=== PATIENT | female | born 1965 | race Caucasian/White ===

== ENCOUNTER 2017-05-08 12:02 | Inpatient (IN) | payer OTHER ==
[2017-05-08 12:14] VITALS: BMI 29.2
--- NOTE | 2017-05-08 12:50 | PDOC ---
History of Present Illness - General Chief Complaint: Chest Pain Stated Complaint: PAIN/ CHEST, RT ARM Time Seen by Provider: 05/08/17 12:41 History Source: Patient - History of Present Illness Initial Comments: 05/08/17 12:49 Patient is a 52 y.o. female with a PMH of HTN, DLD, IDDM, and nephrolithiasis presents to our ED today c/o chest pain that started at 10 a.m. this morning while she was urinating on the toilet. Patient states she felt a sound "pounding" pain over her sternum that spread to the area of her R breast and down her right arm. Patient states the pain is constant, and she cannot identify any relieving factors. Patient states this is the first time she has experienced this chest pain Patient denies any associated diaphoresis, lightheadedness, shortness of breath or nausea/vomiting. Patient denies any recent travel, medication changes and states adherence to her medication regimen. Upon re-exam patient notes she spends 10-12 hours daily crocheting with her R hand. Surgical: Tubal Ligation NKDA PMD: Dr. Trujillo Social: denies nicotine, denies alcohol, denies marijuana/cocaine/heroin Past History - Past Medical History Allergies/Adverse Reactions: Allergies Allergy/AdvReac Type Severity Reaction Status Date / Time No Known Allergies Allergy Verified 05/08/17 12:11 Home Medications: Ambulatory Orders Albuterol Sulfate Inhaler - [Ventolin Hfa Inhaler -] 2 inh PO Q4H PRN 05/08/17 Atorvastatin Ca [Lipitor] 40 mg PO HS 05/08/17 Citalopram Hydrobromide [Celexa -] 10 mg PO DAILY 05/08/17 Gabapentin [Neurontin -] 300 mg PO Q8H 05/08/17 Insulin Glargine,Hum.rec.anlog [Lantus Solostar PEN (NF)] 50 units SQ HS Insulin NPH Human Isophane [Humulin N] 25 unit SQ TID 05/08/17 Diabetes: Yes HTN: Yes Hypercholesterolemia: Yes Kidney Stones: Yes - Family Disease History Family Disease History: Other: Sister (renal colic) - Suicide/Smoking/Psychosocial Hx Smoking History: Never smoked Information on smoking cessation initiated: No Hx Alcohol Use: No Drug/Substance Use Hx: No Substance Use Type: None Review of Systems - Review of Systems Constitutional: No: Chills, Fever HEENTM: No: Blurred Vision Respiratory: No: Shortness of Breath Cardiac (ROS): Yes: Chest Pain. No: Lightheadedness, Palpitations, Chest Tightness ABD/GI: No: Constipated, Diarrhea, Nausea, Vomiting : No: Burning, Dysuria All Other Systems: Reviewed and Negative *Physical Exam - Vital Signs Last Vital Signs Temp Pulse Resp BP Pulse Ox 97.8 F 83 18 151/88 100 05/08/17 12:12 05/08/17 12:12 05/08/17 12:12 05/08/17 12:12 05/08/17 12:12 - Physical Exam General Appearance: Yes: Nourished, Appropriately Dressed HEENT: positive: JARET Neck: positive: Trachea midline, Supple Respiratory/Chest: positive: Normal Breath Sounds Cardiovascular: positive: Regular Rhythm, Regular Rate, S1, S2 Gastrointestinal/Abdominal: positive: Soft Extremity: positive: Normal Range of Motion, Tender (RUE has full ROM, however signficant TTP from shoulder to wrist; neurovascularly intact; motor strength 5/ 5) Integumentary: positive: Normal Color, Dry, Warm Neurologic: positive: Fully Oriented, Alert ED Treatment Course - LABORATORY CBC & Chemistry Diagram: 05/08/17 13:11 05/08/17 13:11 Medical Decision Making - Medical Decision Making 05/08/17 13:48 Patient is a 52 y.o. female who presents c/o acute onset of chest pain. Initial DDX is ACS vs. Muscle Strain vs. GERD (less likely). PLAN: 1. EKG 2. Troponin, CBC/CMP 3. CXR 4. Fingerstick Glucose EKG shows HR 79 with NSR, no appreciable ST elevations/depression, no LAD/RAD normal DC, QT intervals and some T wave flattening in Leads I, aVL, III, aVF, V5 , V6 making patient's (Heart Score = 4). Patient BS 252; Patient did not take her afternoon insulin (as she was in the hospital) - 25 Humalog administered with repeat BS fingerstick ordered. 05/08/17 17:21 Patient accepted for observation admission and possible cardiac evaluation. *DC/Admit/Observation/Transfer Diagnosis at time of Disposition: Chest pain - Discharge Dispostion Disposition: HOME Condition at time of disposition: Good Admit: Yes
[2017-05-08 13:39] LABS: BASOPHIL 1.2 % (0-2.0); EOSINOPHIL 4.1 % (0-4.5); MCHC 33.2 g/dl (32.0-36.0); MEAN CELL VOLUME 84.4 fl (80-96); MEAN PLT VOLUME 8.2 fl (7.5-11.1); NEUTROPHILS 56.1 % (42.8-82.8); PLATELET COUNT 229 K/MM3 (134-434); RDW 13.9 % (11.6-15.6); WHITE BLOOD COUNT 7.5 K/mm3 (4.0-10.0)
[2017-05-08] MEDS ORDERED: ASPIRIN 81 MG CHEWABLE TABLETS PO ONE (13:40)
[2017-05-08] MEDS ORDERED: INSULIN (NOVOLOG) ASPART 100 UNITS/ML 10ML VIAL SQ ONE (13:53)
[2017-05-08] MEDS ORDERED: INSULIN NPH 100 UNITS/ML *VIAL ONE (13:55)
[2017-05-08] MEDS ORDERED: ASPIRIN 81 MG CHEWABLE TABLETS ONE (13:55)
[2017-05-08] MEDS ORDERED: morphine CARPU-JECT 2 MG/1 ML DISP.SYRIN IVPUSH ONE (14:06)
[2017-05-08] MEDS ORDERED: morphine CARPU-JECT 2 MG/1 ML DISP.SYRIN ONE (14:09)
[2017-05-08 14:14] LABS: ALBUMIN 3.7 g/dl (3.4-5.0); ANION GAP 13 (8-16); BILIRUBIN,TOTAL 0.3 mg/dL (0.2-1.0); CALCIUM 9.1 mg/dL (8.5-10.1); CO2 27 mmol/L (21-32); GLUCOSE,RANDOM 251 mg/dL (74-106); SGOT/AST 19 U/L (15-37); SGPT/ALT 28 U/L (12-78); TOT PROT 7.3 g/dl (6.4-8.2)
[2017-05-08 14:15] LABS: ALK PHOS 94 U/L (45-117); CPK 72 IU/L (26-192); TROPONIN I < 0.02 ng/ml (0.00-0.05)
--- NOTE | 2017-05-08 15:52 | PDOC ---
Attending Attestation - Resident Resident Name: Amanda Lovell - ED Attending Attestation I have performed the following: I have examined & evaluated the patient, The case was reviewed & discussed with the resident, I agree w/resident's findings & plan, Exceptions are as noted - HPI HPI: 05/08/17 15:40 52yo p/w HTN, HL, IDDM p/w sternal CP pounding, radiating to R shoulder and R arm while urinating this morning. Pain was constant and is still present. Denies associated diaphoresis, N/V/D, headache. Denies pleuritic quality to pain. Denies recent immobility or exogenous hormones. Denies recent trauma Denies recent abd pain, weakness or numbness - Physicial Exam PE: 05/08/17 17:36 GENERAL: Awake, alert, and fully oriented, in no acute distress HEAD: No signs of trauma EYES: PERRLA, EOMI, sclera anicteric, conjunctiva clear ENT: Auricles normal inspection, hearing grossly normal, nares patent, oropharynx clear without exudates. Moist mucosa NECK: Normal ROM, supple, no lymphadenopathy, JVD, or masses LUNGS: Breath sounds equal, clear to auscultation bilaterally. No wheezes, and no crackles HEART: Regular rate and rhythm, normal S1 and S2, no murmurs, rubs or gallops ABDOMEN: Soft, nontender, normoactive bowel sounds. No guarding, no rebound. No masses EXTREMITIES: Normal range of motion, no edema. No clubbing or cyanosis. No cords, erythema, or tenderness NEUROLOGICAL: Normal speech, cranial nerves intact, negative pronator drift, 5/ 5 strength in all 4 extremities, normal sensation to light touch in all 4 extremities, normal cerebellar exam, normal gait, normal reflexes and tone SKIN: Warm, Dry, normal turgor, no rashes or lesions noted. - Medical Decision Making 05/08/17 17:42 52-year-old female with a history of hypertension, hyperlipidemia, diabetes who presents with sudden onset pounding sternal chest pain radiating to the right shoulder and down her right arm. Pain is present in the emergency department. Vitals are unremarkable and exam is unremarkable. EKG with diffuse T-wave flattening in multiple leads. Differential includes but is not limited to ACS versus unstable angina versus angina versus musculoskeletal pain. Patient's heart score is 5 and thus will admit to obs. -labs -CXR -ASA -admit obs Heart Score/ECG Review - History History: Moderately suspicious - Electrocardiogram EKG: Non specific repolarization disturbance - Age Age: 45-65 - Risk Factors Risk Factors Heart Score: Yes Hx Hypercholesterolemia, Yes Hx Hypertension, Yes Hx Diabetes Based on the list above the patient has:: >/=3 risk factors or Hx atherosclerotic disease - Troponin Troponin: </= normal limit - Score Heart Score - Total: 5 #1 05/08/17 17:39 Twelve-lead EKG was performed and reviewed by me. Normal sinus rhythm, rate 79. Normal axis and intervals. No ST elevations. T wave flattening in leads 1, aVL, 3, aVF, V5 through V6.
[2017-05-08] MEDS ORDERED: ACETAMINOPHEN 1000 MG/100 ML VIAL (NON FORMULARY) IVPB ONE (22:18)
[2017-05-08] MEDS ORDERED: ACETAMINOPHEN INJECTION 100 ML IVPB ONE (22:23)
[2017-05-09] MEDS ORDERED: ACETAMINOPHEN 325 MG TABLET (FP) PO ONE (09:58)
[2017-05-09] MEDS ORDERED: ACETAMINOPHEN 325 MG TABLET (FP) ONE ×2 (10:00→19:26)
[2017-05-09 10:29] LABS: BASOPHIL 0.7 % (0-2.0); EOSINOPHIL 3.5 % (0-4.5); MCH 27.9 pg (25.7-33.7); MCHC 33.3 g/dl (32.0-36.0); MEAN CELL VOLUME 83.8 fl (80-96); MEAN PLT VOLUME 7.7 fl (7.5-11.1); NEUTROPHILS 65.3 % (42.8-82.8); PLATELET COUNT 240 K/MM3 (134-434); RDW 13.5 % (11.6-15.6); WHITE BLOOD COUNT 7.7 K/mm3 (4.0-10.0)
[2017-05-09 10:58] LABS: ALBUMIN 3.6 g/dl (3.4-5.0); ANION GAP 9 (8-16); BILIRUBIN,TOTAL 0.4 mg/dL (0.2-1.0); CALCIUM 9.5 mg/dL (8.5-10.1); CO2 28 mmol/L (21-32); SGOT/AST 26 U/L (15-37); SGPT/ALT 33 U/L (12-78); TOT PROT 7.3 g/dl (6.4-8.2)
[2017-05-09 11:00] LABS: ALK PHOS 94 U/L (45-117); TROPONIN I < 0.02 ng/ml (0.00-0.05)
[2017-05-09 11:04] LABS: GLUCOSE,RANDOM 317 mg/dL (74-106)
--- NOTE | 2017-05-09 11:37 | CON.CARD ---
Consult Consult Specialty:: cardiology Referred by:: Leonel Reason for Consultation:: Chest pain - History of Present Illness Chief Complaint: Chest pain History of Present Illness: The patient is a 53-year-old female, we have a history of diabetes, hypertension , hyperlipidemia, now presenting with chest pains. The patient stated that she was at home sitting in the chair when she suddenly began experiencing retrosternal chest pressure and tightness. The patient had several such episodes throughout the day. Each episode lasting approximately 5 minutes. The patient admits to a sedentary lifestyle. She walks minimal distances. Denied exertional symptoms. Symptoms are partially reproducible to touch. Currently she has very mild symptoms. She denied any other associated symptoms. The ECG showed normal sinus rhythm, with normal axes and intervals, nonspecific ST-T changes. - History Source History Provided By: Patient Limitations to Obtaining History: No Limitations - Past Medical History Cardio/Vascular: Yes: HTN, Hyperlipdemia - Alcohol/Substance Use Hx Alcohol Use: No - Smoking History Smoking history: Never smoked Home Medications - Allergies Allergies/Adverse Reactions: Allergies Allergy/AdvReac Type Severity Reaction Status Date / Time No Known Allergies Allergy Verified 05/08/17 12:11 - Home Medications Home Medications: Ambulatory Orders Albuterol Sulfate Inhaler - [Ventolin Hfa Inhaler -] 2 inh PO Q4H PRN 05/08/17 Atorvastatin Ca [Lipitor] 40 mg PO HS 05/08/17 Citalopram Hydrobromide [Celexa -] 10 mg PO DAILY 05/08/17 Gabapentin [Neurontin -] 300 mg PO Q8H 05/08/17 Insulin Glargine,Hum.rec.anlog [Lantus Solostar PEN (NF)] 50 units SQ HS Insulin NPH Human Isophane [Humulin N] 25 unit SQ TID 05/08/17 Review of Systems - Review of Systems Constitutional: reports: No Symptoms Eyes: reports: No Symptoms HENT: reports: No Symptoms Neck: reports: No Symptoms Cardiovascular: reports: Chest Pain Respiratory: reports: No Symptoms Gastrointestinal: reports: No Symptoms Genitourinary: reports: No Symptoms Breasts: reports: No Symptoms Reported Musculoskeletal: reports: No Symptoms Integumentary: reports: No Symptoms Neurological: reports: No Symptoms Endocrine: reports: No Symptoms Hematology/Lymphatic: reports: No Symptoms Psychiatric: reports: No Symptoms Vital Signs: Vital Signs Temperature 98.3 F 05/09/17 07:48 Pulse Rate 81 05/09/17 07:48 Respiratory Rate 16 05/09/17 07:48 Blood Pressure 141/89 05/09/17 07:48 O2 Sat by Pulse Oximetry (%) 100 05/09/17 07:48 Constitutional: Yes: Well Nourished, Calm Eyes: Yes: WNL HENT: Yes: WNL Neck: Yes: WNL, Supple, Trachea Midline Respiratory: Yes: WNL, Regular, CTA Bilaterally Gastrointestinal: Yes: WNL, Normal Bowel Sounds, Soft Cardiovascular: Yes: WNL, Regular Rate and Rhythm JVD: No Carotid Bruit: No PMI: Non-Displaced Heart Sounds: Yes: S1, S2 Musculoskeletal: Yes: WNL Extremities: Yes: WNL Edema: No Peripheral Pulses WNL: Yes Integumentary: Yes: WNL Neurological: Yes: WNL ...Motor Strength: WNL Psychiatric: Yes: WNL - Other Data Labs, Other Data: CBC, BMP 05/09/17 10:11 05/09/17 10:11 Troponin, BNP 05/08/17 05/09/17 18:40 10:11 Troponin I < 0.02 < 0.02 Troponin, BNP 05/08/17 05/09/17 18:40 10:11 Troponin I < 0.02 < 0.02 Assessment/Plan 53-year-old female with multiple risk factors for coronary artery disease, now presenting with chest pains at rest. The patient has been experiencing intermittent chest pains for the past 24 hours. There is no evidence of ischemia nor acute coronary syndrome. No acute ECG changes. No CHF. Chest pain is atypical. Continue aspirin as currently. Start Toprol-XL 25 mg daily. Give Protonix 40 mg daily. Continue the other medications as currently. Please arrange for a pharmacological nuclear stress test and an echocardiogram. Admitted to telemetry. The patient is stable. We will follow results.
--- NOTE | 2017-05-09 12:49 | EKG ---
Test Reason : Blood Pressure : / mmHG Vent. Rate : 079 BPM Atrial Rate : 079 BPM P-R Int : 142 ms QRS Dur : 072 ms QT Int : 366 ms P-R-T Axes : 053 016 090 degrees QTc Int : 419 ms POOR DATA QUALITY, INTERPRETATION MAY BE ADVERSELY AFFECTED NORMAL SINUS RHYTHM NONSPECIFIC T WAVE ABNORMALITY ABNORMAL ECG WHEN COMPARED WITH ECG OF 31-MAY-2009 17:10, NONSPECIFIC T WAVE ABNORMALITY NOW EVIDENT IN LATERAL LEADS Confirmed by ROGER ZARCO MD ([id number]) on 05/09/2017 12:48:41 PM Referred By: Confirmed By:ROGER ZARCO MD
[2017-05-09] MEDS ORDERED: INSULIN NPH HUMAN ISOPHANE SQ SCH (14:00)
[2017-05-09] MEDS ORDERED: METOPROLOL SUCCINATE 50 MG TAB.SR.24H (FP) ONE (14:10)
[2017-05-09] MEDS ORDERED: PANTOPRAZOLE 40 MG TABLET (FP) ONE (14:10)
[2017-05-09] MEDS ORDERED: ASPIRIN 81 MG CHEWABLE TABLETS ONE (14:10)
[2017-05-09] MEDS ORDERED: CITALOPRAM HYDROBROMIDE 10 MG TABLET (FP) ONE (14:11)
[2017-05-09] MEDS ORDERED: GABAPENTIN 100 MG CAPSULE (FP) ONE ×2 (14:11→23:17)
[2017-05-09] MEDS: GABAPENTIN 300 MG CAPSULE (FP) PO SCH ×3 (14:20→23:08)
[2017-05-09] MEDS: PANTOPRAZOLE 40 MG TABLET (FP) PO SCH (14:20)
[2017-05-09] MEDS: CITALOPRAM HYDROBROMIDE 10 MG TABLET (FP) PO SCH (14:20)
[2017-05-09] MEDS: ASPIRIN 81 MG CHEWABLE TABLETS PO SCH (14:20)
[2017-05-09] MEDS: METOPROLOL SUCCINATE 25 MG TAB.SR.24H (FP) PO SCH (14:20)
--- NOTE | 2017-05-09 16:21 | HP ---
Admitting History and Physical - Primary Care Physician PCP: Minnie Castaneda - Admission Chief Complaint: chest pain History of Present Illness: Patient is a 52 year old female with a PMH of HTN, DLD, IDDM, and nephrolithiasis presents to our ED today c/o chest pain that started at 9 a.m. this morning while she was urinating on the toilet. Patient states she felt a sound "pounding" pain over her sternum radiating to the area of her R breast and down her right arm. Patient states the pain is constant, and she cannot identify any relieving factors. Patient states this is the first time she has experienced this chest pain Patient denies any associated diaphoresis, lightheadedness, shortness of breath or nausea/vomiting. Denies recent abd pain , weakness or numbness In the ED, patient denies CP, no SOB, no palpitation, not in distress. History Source: Patient Limitations to Obtaining History: Clinical Condition - Past Medical History Cardiovascular: Yes: HTN, Hyperlipdemia Endocrine: Yes: Diabetes Mellitus - Past Surgical History Additional Past Surgical History: -S/P tubal ligation (25 years ago) -S/P B/L Lithotripsy secondary to Nephrolithiasis (December 2016) - Smoking History Smoking history: Never smoked - Alcohol/Substance Use Hx Alcohol Use: No - Social History History of Recent Travel: No Home Medications - Allergies Allergies/Adverse Reactions: Allergies Allergy/AdvReac Type Severity Reaction Status Date / Time No Known Allergies Allergy Verified 05/08/17 12:11 - Home Medications Home Medications: Ambulatory Orders Albuterol Sulfate Inhaler - [Ventolin Hfa Inhaler -] 2 inh PO Q4H PRN 05/08/17 Atorvastatin Ca [Lipitor] 40 mg PO HS 05/08/17 Citalopram Hydrobromide [Celexa -] 10 mg PO DAILY 05/08/17 Gabapentin [Neurontin -] 300 mg PO Q8H 05/08/17 Insulin Glargine,Hum.rec.anlog [Lantus Solostar PEN (NF)] 50 units SQ HS Insulin NPH Human Isophane [Humulin N] 25 unit SQ TID 05/08/17 Family Disease History - Family Disease History Family History: Denies Review of Systems - Review of Systems Constitutional: denies: Chills, Fever Eyes: denies: Blurred Vision, Double Vision HENT: denies: Difficult Swallowing, Ear Pain Neck: denies: Decreased ROM Cardiovascular: reports: Chest Pain. denies: Palpitations, Shortness of Breath Respiratory: denies: Cough, SOB Gastrointestinal: denies: Abdominal Pain Musculoskeletal: denies: Back Pain Integumentary: denies: Bruising, Lesions Neurological: denies: Change in LOC, Dizziness, Numbness, Parasthesia, Syncope Hematology/Lymphatic: denies: Excessive Bleeding Psychiatric: reports: Depression. denies: Anxiety Physical Examination Vital Signs: Vital Signs Temperature 98.1 F 05/09/17 13:17 Pulse Rate 74 05/09/17 13:17 Respiratory Rate 20 05/09/17 13:17 Blood Pressure 140/81 05/09/17 13:17 O2 Sat by Pulse Oximetry (%) 100 05/09/17 13:17 Constitutional: Yes: No Distress, Calm Eyes: Yes: Conjunctiva Clear, EOM Intact HENT: Yes: Atraumatic, Normocephalic Neck: Yes: Supple, Trachea Midline Cardiovascular: Yes: Regular Rate and Rhythm, S1, S2 Respiratory: Yes: Regular, CTA Bilaterally Gastrointestinal: Yes: Normal Bowel Sounds, Soft Edema: No Peripheral Pulses WNL: Yes Neurological: Yes: Alert, Oriented ...Motor Strength: WNL Problem List - Problems (1) Chest pain Assessment/Plan: -cardiology consult appreciated -F/U nuclear stress test and echo Code(s): R07.9 - CHEST PAIN, UNSPECIFIED (2) Diabetes 1.5, managed as type 1 Assessment/Plan: -BGM AC/HS -Insulin Sliding Scale -Endocrinology consult Code(s): E13.9 - OTHER SPECIFIED DIABETES MELLITUS WITHOUT COMPLICATIONS (3) HTN (hypertension) Assessment/Plan: -On Toprol -BP monitoring Code(s): I10 - ESSENTIAL (PRIMARY) HYPERTENSION (4) HLD (hyperlipidemia) Assessment/Plan: -On Atorvastatin Code(s): E78.5 - HYPERLIPIDEMIA, UNSPECIFIED (5) CAD (coronary artery disease) Assessment/Plan: -Cardiology on board -On Aspirin -Monitor for CP Code(s): I25.10 - ATHSCL HEART DISEASE OF [place] CORONARY ARTERY W/O ANG PCTRS (6) Depression Assessment/Plan: -On Celexa Code(s): F32.9 - MAJOR DEPRESSIVE DISORDER, SINGLE EPISODE, UNSPECIFIED Assessment/Plan -GI prophylaxis -SCDs -See problem list
[2017-05-09] MEDS: INSULIN SLIDING SCALE (NOVOLOG) 1 VIAL SQ SCH ×2 (16:58→22:53)
[2017-05-09] MEDS ORDERED: INSULIN REGULAR HUMAN 100 UNITS/ML *VIAL ONE (16:59)
[2017-05-09 17:48] LABS: URINE APPEARANCE CLEAR; URINE BILIRUBIN NEGATIVE (NEGATIVE); URINE BLOOD NEGATIVE (NEGATIVE); URINE COLOR LTYELLOW; URINE GLUCOSE (UA) 3+ (NEGATIVE); URINE KETONE NEGATIVE (NEGATIVE); URINE NITRITE NEGATIVE (NEGATIVE); URINE PROTEIN NEGATIVE (NEGATIVE); URINE UROBILINOGEN NEGATIVE mg/dL (0.2-1.0)
[2017-05-09] MEDS: ACETAMINOPHEN 325 MG TABLET (FP) PO PRN (19:32)
[2017-05-09 20:33] LABS: URINE LEUK ESTERASE Negative (NEGATIVE)
[2017-05-09] MEDS: ATORVASTATIN CA 40 MG TABLET (FP) PO SCH (22:55)
[2017-05-09] MEDS: INSULIN DETEMIR 100 UNITS/ML MDV SQ SCH (22:55)
[2017-05-09] MEDS ORDERED: ATORVASTATIN CA 40 MG TABLET (FP) ONE (23:17)
[2017-05-10] MEDS: GABAPENTIN 300 MG CAPSULE (FP) PO SCH ×3 (06:16→22:51)
[2017-05-10 06:52] LABS: BASOPHIL 0.9 % (0-2.0); EOSINOPHIL 4.4 % (0-4.5); MCH 28.2 pg (25.7-33.7); MCHC 33.4 g/dl (32.0-36.0); MEAN CELL VOLUME 84.2 fl (80-96); MEAN PLT VOLUME 7.8 fl (7.5-11.1); NEUTROPHILS 53.2 % (42.8-82.8); PLATELET COUNT 242 K/MM3 (134-434); RDW 13.8 % (11.6-15.6); WHITE BLOOD COUNT 7.9 K/mm3 (4.0-10.0)
[2017-05-10 07:12] LABS: INR 0.95 (0.82-1.09); PROTHROMBIN TIME (PATIENT) 10.7 SEC (9.98-11.88)
[2017-05-10 07:18] LABS: ALBUMIN 3.5 g/dl (3.4-5.0); ANION GAP 8 (8-16); BILIRUBIN,TOTAL 0.3 mg/dL (0.2-1.0); CALCIUM 9.4 mg/dL (8.5-10.1); CO2 30 mmol/L (21-32); CREATININE 1.1 mg/dL (0.55-1.02); GLUCOSE,RANDOM 188 mg/dL (74-106); MAGNESIUM 2.2 mg/dL (1.8-2.4); PHOSPHOROUS 4.7 mg/dL (2.5-4.9); SGOT/AST 14 U/L (15-37); SGPT/ALT 29 U/L (12-78); TOT PROT 7.2 g/dl (6.4-8.2)
[2017-05-10 07:21] LABS: ALK PHOS 83 U/L (45-117)
[2017-05-10] MEDS ORDERED: ACETAMINOPHEN 325 MG TABLET (FP) ONE (10:50)
[2017-05-10] MEDS: ACETAMINOPHEN 325 MG TABLET (FP) PO PRN (10:56)
[2017-05-10] MEDS: METOPROLOL SUCCINATE 25 MG TAB.SR.24H (FP) PO SCH (10:58)
[2017-05-10] MEDS: ASPIRIN 81 MG CHEWABLE TABLETS PO SCH (10:58)
[2017-05-10] MEDS: PANTOPRAZOLE 40 MG TABLET (FP) PO SCH (10:58)
[2017-05-10] MEDS: CITALOPRAM HYDROBROMIDE 10 MG TABLET (FP) PO SCH (10:58)
[2017-05-10] MEDS ORDERED: PNEUMOC 13-VAL CONJ-DIP CRM/PF 0.5 ML DISP.SYRIN IM ONE (11:56)
[2017-05-10] MEDS: INSULIN SLIDING SCALE (NOVOLOG) 1 VIAL SQ SCH ×3 (12:15→22:31)
--- NOTE | 2017-05-10 15:00 | PN ---
Progress Note, Physician Chief Complaint: chest pain History of Present Illness: Patient is lying in a stretcher, complains of intermittent chest discomfort, no SOB, palpitation, afebrile, not in distress. - Current Medication List Current Medications: Active Medications Acetaminophen (Tylenol -) 650 mg PO Q6H PRN PRN Reason: FEVER OR PAIN Last Admin: 05/10/17 10:56 Dose: 650 mg Aspirin (Asa -) 81 mg PO DAILY [facility] Last Admin: 05/10/17 10:58 Dose: 81 mg Atorvastatin Calcium (Lipitor -) 40 mg PO HS [facility] Last Admin: 05/09/17 22:55 Dose: 40 mg Citalopram Hydrobromide (Celexa -) 10 mg PO DAILY [facility] Last Admin: 05/10/17 10:58 Dose: 10 mg Gabapentin (Neurontin -) 300 mg PO TID [facility] Last Admin: 05/10/17 06:16 Dose: 300 mg Insulin Aspart (Novolog Vial Sliding Scale -) 1 vial SQ [facility] PRN Reason: Protocol Last Admin: 05/10/17 12:15 Dose: 2 units Insulin Detemir (Levemir Vial) 50 units SQ [facility] Last Admin: 05/09/17 22:55 Dose: 50 units Metoprolol Succinate (Toprol Xl -) 25 mg PO DAILY [facility] Last Admin: 05/10/17 10:58 Dose: 25 mg Non-Formulary Medication (Insulin Nph Human Isophane [Humulin N]) 25 unit SQ TID [facility] Pantoprazole Sodium (Protonix -) 40 mg PO DAILY [facility] Last Admin: 05/10/17 10:58 Dose: 40 mg Pneumococcal 13-Valent Conj Vacc (Prevnar 13 Syringe -) 0.5 ml IM .ONCE ONE Stop: 05/10/17 11:57 - Objective Vital Signs: Vital Signs Temperature 98.1 F 05/09/17 18:57 Pulse Rate 85 05/09/17 18:57 Respiratory Rate 20 05/10/17 06:38 Blood Pressure 120/68 05/09/17 18:57 O2 Sat by Pulse Oximetry (%) 97 05/10/17 11:44 Constitutional: Yes: No Distress, Calm Eyes: Yes: EOM Intact HENT: Yes: Atraumatic, Normocephalic Neck: Yes: Supple, Trachea Midline Cardiovascular: Yes: Regular Rate and Rhythm, S1, S2 Respiratory: Yes: Regular, CTA Bilaterally Gastrointestinal: Yes: Normal Bowel Sounds, Soft Edema: No Peripheral Pulses WNL: Yes Neurological: Yes: Alert, Oriented Labs: CBC, BMP 05/10/17 06:00 05/10/17 06:00 INR, PTT INR 0.95 (0.82-1.09) 05/10/17 06:00 Problem List - Problems (1) Chest pain Assessment/Plan: -cardiology consult appreciated -F/U nuclear stress test and echo Code(s): R07.9 - CHEST PAIN, UNSPECIFIED (2) Diabetes 1.5, managed as type 1 Assessment/Plan: -BGM AC/HS -Insulin Sliding Scale -Endocrinology consult Code(s): E13.9 - OTHER SPECIFIED DIABETES MELLITUS WITHOUT COMPLICATIONS (3) HTN (hypertension) Assessment/Plan: -On Toprol -BP monitoring Code(s): I10 - ESSENTIAL (PRIMARY) HYPERTENSION (4) HLD (hyperlipidemia) Assessment/Plan: -On Atorvastatin Code(s): E78.5 - HYPERLIPIDEMIA, UNSPECIFIED (5) CAD (coronary artery disease) Assessment/Plan: -Cardiology on board -On Aspirin -Monitor for CP Code(s): I25.10 - ATHSCL HEART DISEASE OF [place] CORONARY ARTERY W/O ANG PCTRS (6) Depression Assessment/Plan: -On Celexa Code(s): F32.9 - MAJOR DEPRESSIVE DISORDER, SINGLE EPISODE, UNSPECIFIED Assessment/Plan -GI prophylaxis -SCDs -See problem list
[2017-05-10 18:47] LABS: CPK 59 IU/L (26-192); TROPONIN I < 0.02 ng/ml (0.00-0.05)
[2017-05-10] MEDS ORDERED: traMADol HCL 50 MG TABLET ONE (18:47)
[2017-05-10] MEDS: traMADol HCL 50 MG TABLET PO PRN (18:48)
[2017-05-10] MEDS: ATORVASTATIN CA 40 MG TABLET (FP) PO SCH (22:31)
[2017-05-10] MEDS: INSULIN DETEMIR 100 UNITS/ML MDV SQ SCH (22:31)
[2017-05-11] MEDS: GABAPENTIN 300 MG CAPSULE (FP) PO SCH ×2 (06:33→14:00)
[2017-05-11] MEDS ORDERED: traMADol HCL 50 MG TABLET ONE (06:34)
[2017-05-11] MEDS: traMADol HCL 50 MG TABLET PO PRN (06:36)
[2017-05-11] MEDS: INSULIN SLIDING SCALE (NOVOLOG) 1 VIAL SQ SCH ×4 (07:04→18:02)
[2017-05-11] MEDS ORDERED: PNEUMOCOCCAL 23 VACCINE 0.5 ML VIAL IM ONE (09:00)
[2017-05-11] MEDS: ASPIRIN 81 MG CHEWABLE TABLETS PO SCH (10:00)
[2017-05-11] MEDS: CITALOPRAM HYDROBROMIDE 10 MG TABLET (FP) PO SCH (10:00)
[2017-05-11] MEDS: METOPROLOL SUCCINATE 25 MG TAB.SR.24H (FP) PO SCH (10:01)
[2017-05-11] MEDS: PANTOPRAZOLE 40 MG TABLET (FP) PO SCH (10:01)
[2017-05-11] MEDS ORDERED: DIPYRIDAMOLE 50 MG/10 ML VIAL IVPB ONE (13:18)
--- NOTE | 2017-05-11 14:01 | PN ---
Progress Note, Physician Chief Complaint: no new complaints tele neg History of Present Illness: The patient is a 53-year-old female, we have a history of diabetes, hypertension , hyperlipidemia, now presenting with chest pains. Echo done results pending Stress Test being done. - Current Medication List Current Medications: Active Medications Acetaminophen (Tylenol -) 650 mg PO Q6H PRN PRN Reason: FEVER OR PAIN Last Admin: 05/10/17 10:56 Dose: 650 mg Aspirin (Asa -) 81 mg PO DAILY [facility] Last Admin: 05/11/17 10:00 Dose: 81 mg Atorvastatin Calcium (Lipitor -) 40 mg PO HS [facility] Last Admin: 05/10/17 22:31 Dose: 40 mg Citalopram Hydrobromide (Celexa -) 10 mg PO DAILY [facility] Last Admin: 05/11/17 10:00 Dose: 10 mg Gabapentin (Neurontin -) 300 mg PO TID [facility] Last Admin: 05/11/17 06:33 Dose: 300 mg Insulin Aspart (Novolog Vial Sliding Scale -) 1 vial SQ [facility] PRN Reason: Protocol Last Admin: 05/11/17 12:24 Dose: Not Given Insulin Detemir (Levemir Vial) 50 units SQ HS [facility] Last Admin: 05/10/17 22:31 Dose: 50 units Metoprolol Succinate (Toprol Xl -) 25 mg PO DAILY [facility] Last Admin: 05/11/17 10:01 Dose: 25 mg Non-Formulary Medication (Insulin Nph Human Isophane [Humulin N]) 25 unit SQ TID [facility] Pantoprazole Sodium (Protonix -) 40 mg PO DAILY [facility] Last Admin: 05/11/17 10:01 Dose: 40 mg Tramadol HCl (Ultram -) 50 mg PO Q8H PRN PRN Reason: PAIN Last Admin: 05/11/17 06:36 Dose: 50 mg - Objective Vital Signs: Vital Signs Temperature 97.9 F 05/11/17 12:17 Pulse Rate 67 05/11/17 12:17 Respiratory Rate 18 05/11/17 12:17 Blood Pressure 129/82 05/11/17 12:17 O2 Sat by Pulse Oximetry (%) 100 05/11/17 11:45 Constitutional: Yes: Well Nourished, No Distress Eyes: Yes: Conjunctiva Clear, EOM Intact HENT: Yes: Atraumatic, Normocephalic Neck: Yes: Supple, Trachea Midline Cardiovascular: Yes: Regular Rate and Rhythm Respiratory: Yes: CTA Bilaterally Gastrointestinal: Yes: Normal Bowel Sounds, Soft Extremities: Yes: WNL Edema: No Labs: CBC, BMP 05/10/17 06:00 05/10/17 06:00 INR, PTT INR 0.95 (0.82-1.09) 05/10/17 06:00 Problem List - Problems (1) CAD (coronary artery disease) Assessment/Plan: continue current medications no evidence of ACS. Echo and stress test result pending. Code(s): I25.10 - ATHSCL HEART DISEASE OF [place] CORONARY ARTERY W/O ANG PCTRS Qualifiers: Coronary Disease-Associated Artery/Lesion type: [place] artery [place] vs. transplanted heart: [place] heart Associated angina: with unstable angina Qualified Code(s): I25.110 - Atherosclerotic heart disease of [place] coronary artery with unstable angina pectoris; I25.110 - Atherosclerotic heart disease of [place] coronary artery with unstable angina pectoris; I25.110 - Atherosclerotic heart disease of [place] coronary artery with unstable angina pectoris; I25.110 - Atherosclerotic heart disease of [place] coronary artery with unstable angina pectoris
[2017-05-11] MEDS ORDERED: DEXTROSE 5% IVPB ONE (16:00)
[2017-05-11] MEDS ORDERED: WATER IVPB ONE (16:00)
[2017-05-11] MEDS ORDERED: DIPYRIDAMOLE STRESS TEST IVPB ONE (16:00)
--- NOTE | 2017-05-11 16:44 | PN ---
Progress Note, Physician Chief Complaint: chest pain continues c/o headache post stress test - Current Medication List Current Medications: Active Medications Acetaminophen (Tylenol -) 650 mg PO Q6H PRN PRN Reason: FEVER OR PAIN Last Admin: 05/10/17 10:56 Dose: 650 mg Aspirin (Asa -) 81 mg PO DAILY [facility] Last Admin: 05/11/17 10:00 Dose: 81 mg Atorvastatin Calcium (Lipitor -) 40 mg PO HS [facility] Last Admin: 05/10/17 22:31 Dose: 40 mg Citalopram Hydrobromide (Celexa -) 10 mg PO DAILY [facility] Last Admin: 05/11/17 10:00 Dose: 10 mg Gabapentin (Neurontin -) 300 mg PO TID [facility] Last Admin: 05/11/17 14:00 Dose: Not Given Insulin Aspart (Novolog Vial Sliding Scale -) 1 vial SQ ACHS [facility] PRN Reason: Protocol Last Admin: 05/11/17 12:24 Dose: Not Given Insulin Detemir (Levemir Vial) 50 units SQ [facility] Last Admin: 05/10/17 22:31 Dose: 50 units Metoprolol Succinate (Toprol Xl -) 25 mg PO DAILY [facility] Last Admin: 05/11/17 10:01 Dose: 25 mg Non-Formulary Medication (Insulin Nph Human Isophane [Humulin N]) 25 unit SQ TID [facility] Pantoprazole Sodium (Protonix -) 40 mg PO DAILY [facility] Last Admin: 05/11/17 10:01 Dose: 40 mg Tramadol HCl (Ultram -) 50 mg PO Q8H PRN PRN Reason: PAIN Last Admin: 05/11/17 06:36 Dose: 50 mg - Objective Vital Signs: Vital Signs Temperature 97.9 F 05/11/17 12:17 Pulse Rate 67 05/11/17 12:17 Respiratory Rate 18 05/11/17 12:17 Blood Pressure 129/82 05/11/17 12:17 O2 Sat by Pulse Oximetry (%) 99 05/11/17 13:00 Constitutional: Yes: Mild Distress Eyes: Yes: WNL HENT: Yes: WNL Neck: Yes: WNL Cardiovascular: Yes: WNL Respiratory: Yes: WNL Gastrointestinal: Yes: WNL Genitourinary: Yes: WNL Musculoskeletal: Yes: WNL Extremities: Yes: WNL Edema: No Peripheral Pulses WNL: Yes Integumentary: Yes: WNL Wound/Incision: Yes: Clean/Dry Neurological: Yes: WNL ...Motor Strength: WNL Psychiatric: Yes: WNL Labs: CBC, BMP 05/10/17 06:00 05/10/17 06:00 INR, PTT INR 0.95 (0.82-1.09) 05/10/17 06:00 Problem List - Problems (1) CAD (coronary artery disease) Code(s): I25.10 - ATHSCL HEART DISEASE OF [place] CORONARY ARTERY W/O ANG PCTRS Qualifiers: Coronary Disease-Associated Artery/Lesion type: [place] artery [place] vs. transplanted heart: [place] heart Associated angina: with unstable angina Qualified Code(s): I25.110 - Atherosclerotic heart disease of [place] coronary artery with unstable angina pectoris; I25.110 - Atherosclerotic heart disease of [place] coronary artery with unstable angina pectoris; I25.110 - Atherosclerotic heart disease of [place] coronary artery with unstable angina pectoris; I25.110 - Atherosclerotic heart disease of [place] coronary artery with unstable angina pectoris (2) Chest pain Code(s): R07.9 - CHEST PAIN, UNSPECIFIED (3) HLD (hyperlipidemia) Code(s): E78.5 - HYPERLIPIDEMIA, UNSPECIFIED (4) HTN (hypertension) Code(s): I10 - ESSENTIAL (PRIMARY) HYPERTENSION (5) Back pain Code(s): M54.9 - DORSALGIA, UNSPECIFIED (6) Diabetes 1.5, managed as type 1 Code(s): E13.9 - OTHER SPECIFIED DIABETES MELLITUS WITHOUT COMPLICATIONS Assessment/Plan STRESS TEST NO ACUTE ISCHEMIC CHANGES CARDIOLOGY AND PULMONARY FOLLOW UP CT CHEST R/O PLEURITIC PROCESS A1C OVER 10.0!! ENDOCRINE CONSULT AND DIETARY CONSULT COMPLIANCE STRESSED
[2017-05-11] MEDS: KETOROLAC TROMETHAMINE 30 MG/1 ML VIAL IVPUSH PRN (19:44)
[2017-05-11] MEDS ORDERED: INSULIN NPH HUMAN ISOPHANE SQ SCH (19:45)
[2017-05-12] MEDS: INSULIN SLIDING SCALE (NOVOLOG) 1 VIAL SQ SCH ×3 (00:49→12:03)
[2017-05-12] MEDS: ATORVASTATIN CA 40 MG TABLET (FP) PO SCH (00:49)
[2017-05-12] MEDS: GABAPENTIN 300 MG CAPSULE (FP) PO SCH ×3 (00:49→13:26)
[2017-05-12] MEDS: INSULIN DETEMIR 100 UNITS/ML MDV SQ SCH (00:50)
--- NOTE | 2017-05-12 00:59 | CONSULT ---
Consult Consult Specialty:: endocrine Referred by:: dr.ammir ashraf Reason for Consultation:: diabetes mellitus - History of Present Illness Chief Complaint: high sugars History of Present Illness: 52 year old female with a PMH of HTN, DLD, IDDM, and nephrolithiasis presents to our ED today c/o chest pain that started at 9 a.m. this morning while she was urinating on the toilet. Patient states she felt a sound "pounding" pain over her sternum radiating to the area of her R breast and down her right arm. Patient has had long history diabetes takes insulin high dose,diet non compliant , has frequent urination no hypoglycemia. - History Source History Provided By: Patient - Past Medical History Cardio/Vascular: Yes: HTN, Hyperlipdemia Endocrine: Yes: Diabetes Mellitus - Alcohol/Substance Use Hx Alcohol Use: No - Smoking History Smoking history: Never smoked - Social History History of Recent Travel: No Home Medications - Allergies Allergies/Adverse Reactions: Allergies Allergy/AdvReac Type Severity Reaction Status Date / Time No Known Allergies Allergy Verified 05/08/17 12:11 - Home Medications Home Medications: Ambulatory Orders Albuterol Sulfate Inhaler - [Ventolin Hfa Inhaler -] 2 inh PO Q4H PRN 05/08/17 Atorvastatin Ca [Lipitor] 40 mg PO HS 05/08/17 Citalopram Hydrobromide [Celexa -] 10 mg PO DAILY 05/08/17 Gabapentin [Neurontin -] 300 mg PO Q8H 05/08/17 Insulin Glargine,Hum.rec.anlog [Lantus Solostar PEN (NF)] 50 units SQ HS Insulin NPH Human Isophane [Humulin N] 25 unit SQ TID 05/08/17 Review of Systems - Review of Systems Constitutional: reports: Loss of Appetite, Weakness Eyes: reports: Blurred Vision HENT: reports: No Symptoms Neck: reports: No Symptoms Cardiovascular: reports: Shortness of Breath Respiratory: reports: Exercise Intolerance Gastrointestinal: reports: Bloating Genitourinary: reports: No Symptoms Breasts: reports: No Symptoms Reported Musculoskeletal: reports: Joint Swelling, Muscle Pain, Muscle Cramps Integumentary: reports: No Symptoms Neurological: reports: Weakness Endocrine: reports: Increased Thirst Physical Exam Vital Signs: Vital Signs Temperature 97.9 F 05/11/17 18:00 Pulse Rate 70 05/11/17 18:00 Respiratory Rate 20 05/11/17 18:00 Blood Pressure 124/77 05/11/17 18:00 O2 Sat by Pulse Oximetry (%) 99 05/11/17 13:00 Constitutional: Yes: Anxious Eyes: Yes: EOM Intact HENT: Yes: Normocephalic Neck: Yes: Trachea Midline Cardiovascular: Yes: Regular Rate and Rhythm Respiratory: Yes: CTA Bilaterally Gastrointestinal: Yes: Normal Bowel Sounds ...Rectal Exam: Yes: Deferred Renal/: Yes: WNL Breast(s): Yes: WNL Musculoskeletal: Yes: WNL Extremities: Yes: WNL Edema: No Integumentary: Yes: WNL Neurological: Yes: Alert, Oriented Labs: CBC, BMP 05/10/17 06:00 05/10/17 06:00 Problem List - Problems (1) Chest pain Code(s): R07.9 - CHEST PAIN, UNSPECIFIED (2) HTN (hypertension) Code(s): I10 - ESSENTIAL (PRIMARY) HYPERTENSION (3) Back pain Code(s): M54.9 - DORSALGIA, UNSPECIFIED Qualifiers: Back pain location: low back pain (4) Diabetes 1.5, managed as type 1 Code(s): E13.9 - OTHER SPECIFIED DIABETES MELLITUS WITHOUT COMPLICATIONS Assessment/Plan Current Active Problems CAD (coronary artery disease) (Acute) Chest pain (Acute) Depression (Acute) HLD (hyperlipidemia) (Acute) HTN (hypertension) (Acute) diabetes mellitus hyperglycemia,diabetes uncontrolled diabetic neuropathy Laboratory Results - last 24 hr 05/10/17 05/11/17 05/11/17 11:19 07:38 12:21 POC Glucometer 186.29689 141.66592 173 05/11/17 05/11/17 16:43 23:19 POC Glucometer 279 270 Laboratory Tests 05/10/17 05/10/17 05/10/17 06:00 06:00 18:26 Sodium 140 Potassium 4.4 Chloride 102 Carbon Dioxide 30 BUN 18 D Creat Clearance w eGFR 52.16 POC Glucometer 201.63830 Hemoglobin A1c % 10.1 H 05/10/17 05/11/17 05/11/17 22:04 07:38 12:21 Sodium Potassium Chloride Carbon Dioxide BUN Creat Clearance w eGFR POC Glucometer 291.09077 141.60311 173 Hemoglobin A1c % plan: bgm qid novolog insulin diet consult nutrition assesment levemir 40 units am \\levemir 20 units hs
[2017-05-12] MEDS ORDERED: INSULIN DETEMIR 100 UNITS/ML MDV SQ SCH ×2 (01:01→07:00)
[2017-05-12] MEDS ORDERED: INSULIN (NOVOLOG) ASPART 100 UNITS/ML 10ML VIAL ONE ×2 (07:03→11:53)
--- NOTE | 2017-05-12 07:18 | EKG ---
Test Reason : Blood Pressure : / mmHG Vent. Rate : 074 BPM Atrial Rate : 074 BPM P-R Int : 162 ms QRS Dur : 072 ms QT Int : 372 ms P-R-T Axes : 037 016 052 degrees QTc Int : 412 ms NORMAL SINUS RHYTHM NORMAL ECG WHEN COMPARED WITH ECG OF 08-MAY-2017 12:15, T WAVE VARIATION Confirmed by MURPHY CRUZ MD ([id number]) on 05/12/2017 7:17:56 AM Referred By: Confirmed By:MURPHY CRUZ MD
[2017-05-12] MEDS: CITALOPRAM HYDROBROMIDE 10 MG TABLET (FP) PO SCH (08:59)
[2017-05-12] MEDS: PANTOPRAZOLE 40 MG TABLET (FP) PO SCH (08:59)
[2017-05-12] MEDS: METOPROLOL SUCCINATE 25 MG TAB.SR.24H (FP) PO SCH (08:59)
[2017-05-12] MEDS: ASPIRIN 81 MG CHEWABLE TABLETS PO SCH (08:59)
[2017-05-12] MEDS: KETOROLAC TROMETHAMINE 30 MG/1 ML VIAL IVPUSH PRN (09:00)
[2017-05-12 09:54] VITALS: TEMP 97.8
--- NOTE | 2017-05-12 12:55 | PN ---
Progress Note (short form) - Note Progress Note: PULMONARY CONSULTATION DICTATED 05/12/17 IMP CP SYNDROME ? MUSCULOSKELETAL ASTHMA RLL NODULE STABLE SINCE 08/2014 HTN DM R/O OSAS PLAN CARDIAC W/U PER CARDIOLOGY ESR ANALGESICS INHALED BRONCHODILATORS PRN NO FURTHER IMAGING W/U INDICATED FOR RLL NODULE SINCE STABLE GREATER THAN 2 YEARS PFTS OUTPATIENT SLEEP SCREEN DR MCMANUS Problem List - Problems (1) Chest pain Code(s): R07.9 - CHEST PAIN, UNSPECIFIED (2) Depression Code(s): F32.9 - MAJOR DEPRESSIVE DISORDER, SINGLE EPISODE, UNSPECIFIED (3) HLD (hyperlipidemia) Code(s): E78.5 - HYPERLIPIDEMIA, UNSPECIFIED (4) HTN (hypertension) Code(s): I10 - ESSENTIAL (PRIMARY) HYPERTENSION (5) Diabetes 1.5, managed as type 1 Code(s): E13.9 - OTHER SPECIFIED DIABETES MELLITUS WITHOUT COMPLICATIONS (6) Asthma Code(s): J45.909 - UNSPECIFIED ASTHMA, UNCOMPLICATED (7) Lung nodule < 6cm on CT Code(s): R91.1 - SOLITARY PULMONARY NODULE
--- NOTE | 2017-05-12 13:15 | DS ---
Physical Examination Vital Signs: Vital Signs Temperature 97.8 F 05/12/17 09:48 Pulse Rate 69 05/12/17 09:48 Respiratory Rate 18 05/12/17 09:48 Blood Pressure 137/77 05/12/17 09:48 O2 Sat by Pulse Oximetry (%) 100 05/12/17 09:48 Constitutional: Yes: No Distress Eyes: Yes: WNL HENT: Yes: WNL Neck: Yes: WNL Cardiovascular: Yes: WNL Respiratory: Yes: WNL Gastrointestinal: Yes: WNL Musculoskeletal: Yes: WNL Extremities: Yes: WNL Edema: No Integumentary: Yes: WNL Wound/Incision: Yes: Clean/Dry Neurological: Yes: WNL ...Motor Strength: WNL Psychiatric: Yes: WNL Labs: CBC, BMP 05/10/17 06:00 05/10/17 06:00 Discharge Summary Reason For Visit: CHEST PAIN Current Active Problems Asthma (Acute) CAD (coronary artery disease) (Acute) Chest pain (Acute) Depression (Acute) HLD (hyperlipidemia) (Acute) HTN (hypertension) (Acute) Lung nodule < 6cm on CT (Acute) Procedures: Principal: STRESS TEST Hospital Course: CT CHEST DONE NO ACUTE CHANGES, STRESS TEST NO ISCHEMIA, WILL NEED F/U PULMONARY OUTPATIENT Condition: Good - Instructions Diet, Activity, Other Instructions: LOW SALT SEE DR MCMANUS IN 2 WEEKS Disposition: HOME - Home Medications Comprehensive Discharge Medication List: Ambulatory Orders Acetaminophen [Tylenol .Regular Strength -] 650 mg PO Q6H PRN #0 tablet Albuterol Sulfate Inhaler - [Ventolin HFA Inhaler -] 2 inh PO Q4H PRN #0 inh Aspirin [ASA -] 81 mg PO DAILY #30 tab.chew 05/12/17 Atorvastatin Ca [Lipitor] 40 mg PO HS #30 tab 05/12/17 Citalopram Hydrobromide [Celexa -] 10 mg PO DAILY #30 tab 05/12/17 Gabapentin [Neurontin -] 300 mg PO Q8H #90 cap 05/12/17 Insulin (Levemir) [Levemir Vial] 40 units SQ AM #4 syr 05/12/17 Insulin Glargine,Hum.rec.anlog [Lantus Solostar PEN -] 50 units SQ HS #4 syr Insulin Sliding Scale [Novolog Vial Sliding Scale -] 5 syringe SQ ACHS #4 units 05/12/17 Metoprolol Succinate [Toprol XL -] 25 mg PO DAILY #30 tab 05/12/17 Pantoprazole Sodium [Protonix -] 40 mg PO DAILY #30 tab 05/12/17
--- NOTE | 2017-05-12 14:19 | PN ---
Progress Note, Physician Chief Complaint: no new complaints tele neg History of Present Illness: The patient is a 53-year-old female, we have a history of diabetes, hypertension , hyperlipidemia, now presenting with chest pains. Echo 05/11/17 nlef Stress Test 05/11/17 nl perfusion - Current Medication List Current Medications: Active Medications Acetaminophen (Tylenol -) 650 mg PO Q6H PRN PRN Reason: FEVER OR PAIN Last Admin: 05/10/17 10:56 Dose: 650 mg Aspirin (Asa -) 81 mg PO DAILY [facility] Last Admin: 05/12/17 08:59 Dose: 81 mg Atorvastatin Calcium (Lipitor -) 40 mg PO HS [facility] Last Admin: 05/12/17 00:49 Dose: 40 mg Citalopram Hydrobromide (Celexa -) 10 mg PO DAILY [facility] Last Admin: 05/12/17 08:59 Dose: 10 mg Gabapentin (Neurontin -) 300 mg PO TID [facility] Last Admin: 05/12/17 13:26 Dose: 300 mg Insulin Aspart (Novolog Vial Sliding Scale -) 1 vial SQ ACHS [facility] PRN Reason: Protocol Last Admin: 05/12/17 12:03 Dose: 4 units Insulin Detemir (Levemir Vial) 20 units SQ HS [facility] Insulin Detemir (Levemir Vial) 40 units SQ AM [facility] Last Admin: 05/12/17 07:18 Dose: Not Given Ketorolac Tromethamine (Toradol Injection -) 30 mg IVPUSH Q6H PRN PRN Reason: PAIN Stop: 05/16/17 16:41 Last Admin: 05/12/17 09:00 Dose: 30 mg Metoprolol Succinate (Toprol Xl -) 25 mg PO DAILY [facility] Last Admin: 05/12/17 08:59 Dose: 25 mg Pantoprazole Sodium (Protonix -) 40 mg PO DAILY [facility] Last Admin: 05/12/17 08:59 Dose: 40 mg Tramadol HCl (Ultram -) 50 mg PO Q8H PRN PRN Reason: PAIN Last Admin: 05/11/17 06:36 Dose: 50 mg - Objective Vital Signs: Vital Signs Temperature 97.8 F 05/12/17 09:48 Pulse Rate 69 05/12/17 09:48 Respiratory Rate 18 05/12/17 09:48 Blood Pressure 137/77 05/12/17 09:48 O2 Sat by Pulse Oximetry (%) 100 05/12/17 09:48 Constitutional: Yes: No Distress Eyes: Yes: Conjunctiva Clear, EOM Intact HENT: Yes: Atraumatic, Normocephalic Neck: Yes: Trachea Midline Cardiovascular: Yes: Regular Rate and Rhythm Respiratory: Yes: CTA Bilaterally Gastrointestinal: Yes: Normal Bowel Sounds Extremities: Yes: WNL Edema: No Labs: CBC, BMP 05/10/17 06:00 05/10/17 06:00 INR, PTT INR 0.95 (0.82-1.09) 05/10/17 06:00 Problem List - Problems (1) CAD (coronary artery disease) Assessment/Plan: continue current medications no evidence of ACS. Echo and stress test unremarkable. no need for further testing. Code(s): I25.10 - ATHSCL HEART DISEASE OF [place] CORONARY ARTERY W/O ANG PCTRS Qualifiers: Coronary Disease-Associated Artery/Lesion type: [place] artery [place] vs. transplanted heart: [place] heart Associated angina: with unstable angina Qualified Code(s): I25.110 - Atherosclerotic heart disease of [place] coronary artery with unstable angina pectoris; I25.110 - Atherosclerotic heart disease of [place] coronary artery with unstable angina pectoris; I25.110 - Atherosclerotic heart disease of [place] coronary artery with unstable angina pectoris; I25.110 - Atherosclerotic heart disease of [place] coronary artery with unstable angina pectoris
[2017-05-12 14:20] VITALS: BP 143/72; PULSE 71
--- NOTE | 2017-05-12 17:08 | CONS ---
PULMONARY CONSULTATION DATE OF CONSULTATION: 05/12/2017 REFERRING PHYSICIAN: Kristina Santillan MD HISTORY OF PRESENT ILLNESS: The patient is a 52-year-old female with past medical history of insulin-dependent diabetes mellitus, hypertension, hyperlipidemia, asthma in commissary helper, currently maintained on albuterol inhaler which she uses probably once a month, who is a nonsmoker, admitted to [facility] with complaint of chest pain described as retrosternal chest pressure and tightness since Thursday prior to admission. Patient denied any complaints of nausea, vomiting, or diaphoresis. She stated that the pain is intermittent. She denies any increasing symptoms with exertion. She denies any nausea, vomiting, or diaphoresis. Denies any hemoptysis. She states that the pain is partially reproducible by touch. There is no history of recent chest trauma. PAST MEDICAL HISTORY: Again includes hypertension, hyperlipidemia, diabetes mellitus, and asthma. REVIEW OF SYSTEMS: No orthopnea. No PND. Positive chest pain. No cough. No hemoptysis. No abdominal pain. No fevers. No weight loss. No night sweats. No lower extremity edema. CURRENT MEDICATIONS PRIOR TO ADMISSION: Include albuterol, Lipitor, Celexa, Neurontin, Lantus, and Humulin. CURRENT MEDICATIONS: Include Tylenol, Neurontin, Celexa, Toradol, Lipitor, Levemir, , Ultram, and Protonix. SOCIAL HISTORY: Patient was born in [place], moved to the [place] years ago. No history of occupational exposure. Nonsmoker. PHYSICAL EXAMINATION: General: The patient is a well-developed, well-nourished female, awake, alert, in no acute distress. Vital Signs: She is currently afebrile. Blood pressure 137/77, respiratory rate is 18, O2 saturation 100% on room air. HEENT: Normocephalic, atraumatic. Neck: Supple without any adenopathy. Heart: Regular, S1, S2. Chest: Clear. Abdomen: Soft. Bowel sounds are positive. Extremities: No cyanosis or edema. DIAGNOSTIC DATA: WBC 7.9, hemoglobin 12.9, hematocrit is 38.4, platelet count 242,000. Chemistries essentially within normal limits except for mild elevation in creatinine, 1.1. Chest CT reveals mild increased markings at the bases. There was a small right lower lobe nodule, stable since . Echocardiogram within normal limits. Stress myocardial perfusion nuclear scan within normal limits. IMPRESSION: 1. Chest pain, chest pressure, likely musculoskeletal. No evidence of active pulmonary disease and/or cardiac disease. 2. Right lower lobe nodule, stable for greater than 2-1/2 years. No need for pulmonary followup. No need for followup imaging as the patient is low risk. 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 3. Diabetes. 4. Hypertension. 5. Asthma. 6. Obstructive sleep apnea. PLAN: Continue cardiac workup as per Cardiology. Suggest pulmonary function tests as outpatient. Analgesics. Also, consider sleep screen to rule out possible obstructive sleep apnea. KYUNG MCMANUS M.D. SHARON/[id number]
--- NOTE | 2017-05-18 10:17 | EKG ---
Test Reason : Blood Pressure : / mmHG Vent. Rate : 071 BPM Atrial Rate : 071 BPM P-R Int : 154 ms QRS Dur : 078 ms QT Int : 370 ms P-R-T Axes : 034 016 063 degrees QTc Int : 402 ms NORMAL SINUS RHYTHM NORMAL ECG WHEN COMPARED WITH ECG OF 09-MAY-2017 23:51, NO SIGNIFICANT CHANGE WAS FOUND Confirmed by MURPHY CRUZ MD ([id number]) on 05/18/2017 10:17:09 AM Referred By: Confirmed By:MURPHY CRUZ MD
== END 2017-05-12 15:55 | disposition home or self-care (01) | DRG 198 ==
LOC: JER 12:02 → JERBED 17:19 → OBSVTOIN 05-09 12:59 → J4S 05-11 12:03 → UNDODISIN 05-11 19:37
PROVIDERS: ADMIT Family Medicine; ATTEND Family Medicine
DX: I25.10 Atherosclerotic heart disease of native coronary artery without angina pectoris (principal); I10 Essential (primary) hypertension; E78.5 Hyperlipidemia, unspecified; F32.9 Major depressive disorder, single episode, unspecified; J45.909 Unspecified asthma, uncomplicated; R91.1 Solitary pulmonary nodule; R07.89 Other chest pain; E11.9 Type 2 diabetes mellitus without complications; M54.9 Dorsalgia, unspecified; E11.65 Type 2 diabetes mellitus with hyperglycemia; E11.42 Type 2 diabetes mellitus with diabetic polyneuropathy
CPT/HCPCS: 36415; 71020-TC; 71250-TC; 78452-TC; 80053; 81003; 82550; 83036; 83735; 83880; 84100; 84484; 84703; 85025; 85610; 87081; 90732; 93005; 93010; 93017; 93306-TC; 99285-25; A9502; G0009; G0378

== ENCOUNTER 2017-08-03 16:33 | Inpatient (IN) | payer OTHER ==
[2017-08-03 16:42] VITALS: BMI 29.2
--- NOTE | 2017-08-03 16:43 | PDOC ---
Rapid Medical Evaluation Time Seen by Provider: 08/03/17 16:37 Medical Evaluation: Allergies Allergy/AdvReac Type Severity Reaction Status Date / Time No Known Allergies Allergy Verified 08/03/17 16:38 08/03/17 16:38 Pt presents to the ED: 2 weeks with rt buttock abscess , no fever, hx dm Pt on brief exam: did not check sugar, mild tachy, no fever, $ x 3inch rt gluteal abscess near rectum, center with pus Pt ordered for: wound cx Pt to proceed to the ED Discharge Disposition - Diagnosis Abscess - Referrals - Patient Instructions - Post Discharge Activity
--- NOTE | 2017-08-03 17:15 | PDOC ---
History of Present Illness - General Chief Complaint: Abscess Boil Stated Complaint: PAIN Time Seen by Provider: 08/03/17 16:37 - History of Present Illness Initial Comments: 08/03/17 17:15 52 year old female with a PMH of HTN, DLD, IDDM, and nephrolithiasis presents to our ED with perirectal abcess inside the right buttock increasing in size and pain for the past week, Previous I&D for abscess on her back in the ED. 08/03/17 18:45 08/03/17 18:46 Past History - Past Medical History Allergies/Adverse Reactions: Allergies Allergy/AdvReac Type Severity Reaction Status Date / Time No Known Allergies Allergy Verified 08/03/17 16:38 Home Medications: Ambulatory Orders Acetaminophen [Tylenol .Regular Strength -] 650 mg PO Q6H PRN #0 tablet Albuterol Sulfate Inhaler - [Ventolin HFA Inhaler -] 2 inh PO Q4H PRN #0 inh Aspirin [ASA -] 81 mg PO DAILY #30 tab.chew 05/12/17 Atorvastatin Ca [Lipitor] 40 mg PO HS #30 tab 05/12/17 Citalopram Hydrobromide [Celexa -] 10 mg PO DAILY #30 tab 05/12/17 Gabapentin [Neurontin -] 300 mg PO Q8H #90 cap 05/12/17 Insulin (Levemir) [Levemir Vial] 40 units SQ AM #4 syr 05/12/17 Insulin Glargine,Hum.rec.anlog [Lantus Solostar PEN -] 50 units SQ HS #4 syr Insulin Sliding Scale [Novolog Vial Sliding Scale -] 5 syringe SQ ACHS #4 units 05/12/17 Metoprolol Succinate [Toprol XL -] 25 mg PO DAILY #30 tab 05/12/17 Pantoprazole Sodium [Protonix -] 40 mg PO DAILY #30 tab 05/12/17 Diabetes: Yes HTN: Yes Hypercholesterolemia: Yes Kidney Stones: Yes - Family Disease History Family Disease History: Other: Sister (renal colic) - Suicide/Smoking/Psychosocial Hx Smoking History: Never smoked Hx Alcohol Use: No Drug/Substance Use Hx: No Substance Use Type: None Review of Systems - Review of Systems Able to Perform ROS?: Yes Is the patient limited Tu[place] proficient: No Constitutional: No: Symptoms Reported HEENTM: No: Symptoms Reported Respiratory: No: Symptoms reported Cardiac (ROS): No: Symptoms Reported ABD/GI: No: Symptoms Reported : No: Symptoms Reported Musculoskeletal: Yes: See HPI. No: Symptoms Reported Integumentary: Yes: See HPI Neurological: No: Symptoms reported Endocrine: No: Symptoms Reported All Other Systems: Reviewed and Negative *Physical Exam - Vital Signs Last Vital Signs Temp Pulse Resp BP Pulse Ox 98.4 F 101 H 19 157/86 100 08/03/17 16:38 08/03/17 16:38 08/03/17 16:38 08/03/17 16:38 08/03/17 16:38 - Physical Exam General Appearance: Yes: Appropriately Dressed, Mild Distress, Obese HEENT: positive: EOMI, JARET, Normal ENT Inspection Neck: negative: Tender Respiratory/Chest: positive: Lungs Clear, Normal Breath Sounds. negative: Chest Tender, Respiratory Distress Cardiovascular: positive: Regular Rhythm, S1, S2, Tachycardia Gastrointestinal/Abdominal: positive: Normal Bowel Sounds, Soft, Protuberent. negative: Tender Integumentary: positive: Other (5cm diameter abcess inner superior fold of right buttock) Neurologic: positive: Fully Oriented, Alert, Normal Mood/Affect, Normal Response. negative: Motor Strength 5/5 ED Treatment Course - LABORATORY CBC & Chemistry Diagram: 08/03/17 17:43 08/03/17 17:43 Medical Decision Making - Medical Decision Making 08/03/17 18:51 52F with perirectal abscess. Patient with sugar in the 500's given x1 NS bolus creatinine 1.2: will order pelvis with contrast to determine if this will be drainined in the ED or surgical consult. Morphine for pain *DC/Admit/Observation/Transfer Diagnosis at time of Disposition: Abscess - Referrals Referrals: Yohannes Baumann MD [Primary Care Provider] - - Patient Instructions - Post Discharge Activity
[2017-08-03] MEDS ORDERED: PIPERACILLIN/TAZOB 3.375 GM/50 ML PRE-DOCKED IVPB ONE (17:43)
[2017-08-03] MEDS ORDERED: SODIUM CHLORIDE 1,000 ML IV STA ×2 (17:44→20:59)
[2017-08-03] MEDS ORDERED: morphine CARPU-JECT 2 MG/1 ML DISP.SYRIN IVPUSH ONE (17:57)
[2017-08-03] MEDS ORDERED: ONDANSETRON *ODT* 4 MG TABLET SL ONE (18:02)
[2017-08-03 18:06] LABS: BASO % 1.1 % (0-2.0); EOS % 1.9 % (0-4.5); HEMATOCRIT 37.8 % (32.4-45.2); HEMOGLOBIN 12.6 GM/dL (10.7-15.3); LYMPH % 18.8 % (8-40); MCH 28.2 pg (25.7-33.7); MCHC 33.4 g/dl (32.0-36.0); MEAN CELL VOLUME 84.6 fl (80-96); MEAN PLT VOLUME 7.9 fl (7.5-11.1); MONO % 6.7 % (3.8-10.2); NEUT % 71.5 % (42.8-82.8); PLATELET COUNT 272 K/MM3 (134-434); RBC 4.46 M/mm3 (3.60-5.2); RDW 13.2 % (11.6-15.6); WHITE BLOOD COUNT 10.4 K/mm3 (4.0-10.0)
--- NOTE | 2017-08-03 18:08 | PDOC ---
Attending Attestation - Resident Resident Name: Pillo Drew - ED Attending Attestation I have performed the following: I have examined & evaluated the patient, The case was reviewed & discussed with the resident, I agree w/resident's findings & plan, Exceptions are as noted - HPI HPI: 08/03/17 18:05 52 yo female p/w right buttocks abscess head ncat neck supple,no cervical vertebral tenderness lungs cta b/l cvs [id number] abd soft nontender right buttocks 5 cm indurated abscess along rt cleft, no purulence,no drainage, the abscess is just above anal verge ext full range of mvmt,no deformities skin warm,dry neuro axxox3,ambulatory - Physicial Exam PE: 08/03/17 21:20 physical exam above - Medical Decision Making 08/03/17 21:21 52 yo IDDM who normally goes to [facility] p/w large perianal indurated abscess ct scan reveals multiple abscesses , pt's glucose =447 -pt needs IV antibiotcs and surgical consult. pt admitted to Dr Broderick
[2017-08-03] MEDS ORDERED: ONDANSETRON *ODT* 4 MG TABLET ONE (18:10)
[2017-08-03] MEDS ORDERED: morphine CARPU-JECT 10 MG/1 ML DISP.SYRIN ONE (18:10)
[2017-08-03] MEDS ORDERED: PIPERACILLIN/TAZOB 3.375 GM 3.375 GM/50 ML BAG IVPB ONE (18:11)
[2017-08-03 18:37] LABS: ALBUMIN 3.4 g/dl (3.4-5.0); ANION GAP 12 (8-16); BLOOD UREA NITROGEN 12 mg/dL (7-18); CHLORIDE 99 mmol/L (98-107); CO2 26 mmol/L (21-32); CREATININE 1.2 mg/dL (0.55-1.02); POTASSIUM 3.8 mmol/L (3.5-5.1); SGOT/AST 12 U/L (15-37); SGPT/ALT 18 U/L (12-78); SODIUM 137 mmol/L (136-145)
[2017-08-03 18:38] LABS: ALK PHOS 113 U/L (45-117); BILIRUBIN,TOTAL 0.4 mg/dL (0.2-1.0); TOT PROT 7.4 g/dl (6.4-8.2)
[2017-08-03 18:40] LABS: GLUCOSE,RANDOM 447 mg/dL (74-106)
[2017-08-03 20:23] LABS: URINE APPEARANCE CLEAR; URINE BILIRUBIN NEGATIVE (NEGATIVE); URINE BLOOD NEGATIVE (NEGATIVE); URINE COLOR STRAW; URINE GLUCOSE (UA) 3+ (NEGATIVE); URINE KETONE NEGATIVE (NEGATIVE); URINE NITRITE NEGATIVE (NEGATIVE); URINE PROTEIN NEGATIVE (NEGATIVE); URINE UROBILINOGEN NEGATIVE mg/dL (0.2-1.0)
--- NOTE | 2017-08-03 20:29 | PDOC ---
*Physical Exam - Vital Signs Last Vital Signs Temp Pulse Resp BP Pulse Ox 98.4 F 101 H 19 157/86 100 08/03/17 16:38 08/03/17 16:38 08/03/17 16:38 08/03/17 16:38 08/03/17 16:38 - Physical Exam Comments: 08/03/17 20:30 General Appearance: Nourished. No Apparent Distress HEENT: EOMI, JARET. No Pharyngeal Erythema, Tonsillar Exudate, Tonsillar Erythema Neck: No Cervical Lymphadenopathy Respiratory/Chest: Lungs Clear, Normal Breath Sounds. No Crackles, Rales, Rhonchi, Wheezing Cardiovascular: Regular Rhythm, Regular Rate. No Murmur, Gallops, Rubs Gastrointestinal/Abdominal: 5cm abscess along the inner superior fold of the right buttocks. Normal Bowel Sounds, Soft. No Guarding, Rebound, Tenderness Musculoskeletal: No CVA Tenderness Extremity: Normal Capillary Refill Integumentary: Normal Color, Dry, Warm Neurologic: Fully Oriented, Alert, Normal Mood/Affect, Normal Response, ED Treatment Course - LABORATORY CBC & Chemistry Diagram: 08/03/17 17:43 08/03/17 17:43 - ADDITIONAL ORDERS Additional order review: Laboratory Results 08/03/17 08/03/17 19:10 17:43 Sodium 137 Potassium 3.8 Chloride 99 Carbon Dioxide 26 Anion Gap 12 BUN 12 D Creatinine 1.2 H Creat Clearance w eGFR 47.18 Random Glucose 447 H* D Calcium 9.0 Total Bilirubin 0.4 D AST 12 L ALT 18 D Alkaline Phosphatase 113 D Total Protein 7.4 Albumin 3.4 Serum , Qual Negative 08/03/17 17:43 RBC 4.46 MCV 84.6 MCHC 33.4 RDW 13.2 MPV 7.9 Neutrophils % 71.5 D Lymphocytes % 18.8 D Monocytes % 6.7 Eosinophils % 1.9 Basophils % 1.1 - Medications Given in the ED: ED Medications Discontinued Medications Generic Name Dose Route Start Last Admin Trade Name Freq PRN Reason Stop Dose Admin Sodium Chloride 1,000 mls @ 1,000 mls/hr 08/03/17 17:44 08/03/17 18:01 Normal Saline - IV 08/03/17 18:43 1,000 mls/hr ASDIR STA Administration Morphine Sulfate 2 mg 08/03/17 17:57 08/03/17 18:14 Morphine Injection - IVPUSH 08/03/17 17:58 2 mg ONCE ONE Administration Ondansetron HCl 8 mg 08/03/17 18:02 08/03/17 18:14 Zofran Odt - SL 08/03/17 18:03 8 mg ONCE ONE Administration Piperacillin Sod/Tazobactam Sod 3.375 gm 08/03/17 17:43 08/03/17 18:20 Zosyn 3.375gm Ivpb (Pre-Docked) IVPB 08/03/17 17:44 3.375 gm ONCE ONE Administration Progress Note - Progress Note Progress Note: Received sign out from Dr. Drew. The patient is a 52 year old female with a history of abscesses who presents for evaluation of a hernesto-rectal abscess. The patient has a indurated abscess along the right buttocks and crease. Patient is pending labs and an abdomen ct to evaluate the extent of the abscess and possible surgical consultation. Medical Decision Making - Medical Decision Making 08/03/17 20:29 Received a call from ct scan. We understand the patient has a low GFR and wish to continue with contrast ct to evaluate the extent of the patient's abscess. 08/03/17 21:25 CT scan demonstrates multiple buttocks and perirectal abscesses as read by our radiologist. We believe the patient requires admission and surgical consultation for further management of her symptoms. We discussed the case with Dr. Montgomery who accepted the patient for admission. We discussed the plan and the results with the patient who voiced understanding and is agreeable with the plan. 08/03/17 21:55 We discussed the case with Dr. Machado who has been made aware of the case and requests the patient be kept NPO. He will come evaluate the patient in the morning. *DC/Admit/Observation/Transfer Diagnosis at time of Disposition: Abscess - Discharge Dispostion Condition at time of disposition: Stable Admit: Yes - Referrals Referrals: Yohannes Baumann MD [Primary Care Provider] - - Patient Instructions - Post Discharge Activity
[2017-08-03 20:36] LABS: URINE LEUK ESTERASE 1+ (NEGATIVE)
[2017-08-03 20:37] LABS: EPI CELLS FEW /HPF (FEW)
--- NOTE | 2017-08-03 22:36 | HP ---
Admitting History and Physical - Primary Care Physician PCP: Abigail Montgomery - Admission Chief Complaint: R buttock abcess History of Present Illness: 52 year old female with a PMH of HTN, DLD, IDDM, and nephrolithiasis presents to our ED with perirectal abcess inside the right buttock increasing in size and pain for the past week, - Past Medical History Cardiovascular: Yes: HTN, Hyperlipdemia Endocrine: Yes: Diabetes Mellitus - Smoking History Smoking history: Never smoked - Alcohol/Substance Use Hx Alcohol Use: No - Social History History of Recent Travel: No Home Medications - Allergies Allergies/Adverse Reactions: Allergies Allergy/AdvReac Type Severity Reaction Status Date / Time No Known Allergies Allergy Verified 08/03/17 16:38 - Home Medications Home Medications: Ambulatory Orders Acetaminophen [Tylenol .Regular Strength -] 650 mg PO Q6H PRN #0 tablet Albuterol Sulfate Inhaler - [Ventolin HFA Inhaler -] 2 inh PO Q4H PRN #0 inh Atorvastatin Ca [Lipitor] 40 mg PO HS #30 tab 05/12/17 Citalopram Hydrobromide [Celexa -] 10 mg PO DAILY #30 tab 05/12/17 Gabapentin [Neurontin -] 300 mg PO Q8H #90 cap 05/12/17 Pantoprazole Sodium [Protonix -] 40 mg PO DAILY #30 tab 05/12/17 Insulin Glargine,Hum.rec.anlog [Lantus] 0 unit SQ ASDIR 08/03/17 Insulin Sliding Scale [Novolog Vial Sliding Scale -] 0 units SQ ACHS 08/03/17 Physical Examination Vital Signs: Vital Signs Temperature 98.4 F 08/03/17 16:38 Pulse Rate 101 H 08/03/17 16:38 Respiratory Rate 19 08/03/17 16:38 Blood Pressure 157/86 08/03/17 16:38 O2 Sat by Pulse Oximetry (%) 100 08/03/17 16:38 HENT: Yes: Atraumatic Neck: Yes: Supple Cardiovascular: Yes: Regular Rate and Rhythm Respiratory: Yes: CTA Bilaterally Gastrointestinal: Yes: Normal Bowel Sounds ...Rectal Exam: Yes: Other (R buttock abcesss) Extremities: Yes: WNL Labs: CBC, BMP 08/03/17 17:43 08/03/17 17:43 Problem List - Problems (1) Diabetes Assessment/Plan: bgms sliding scale Code(s): E11.9 - TYPE 2 DIABETES MELLITUS WITHOUT COMPLICATIONS Qualifiers: Diabetes mellitus type: type 2 Diabetes mellitus complication status: without complication (2) HLD (hyperlipidemia) Code(s): E78.5 - HYPERLIPIDEMIA, UNSPECIFIED (3) HTN (hypertension) Code(s): I10 - ESSENTIAL (PRIMARY) HYPERTENSION Assessment/Plan Laboratory Tests 08/03/17 08/03/17 08/03/17 17:43 17:43 17:43 WBC 10.4 H D RBC 4.46 Hgb 12.6 Hct 37.8 MCV 84.6 MCH 28.2 MCHC 33.4 RDW 13.2 Plt Count 272 MPV 7.9 Neutrophils % 71.5 D Lymphocytes % 18.8 D Monocytes % 6.7 Eosinophils % 1.9 Basophils % 1.1 Sodium 137 Potassium 3.8 Chloride 99 Carbon Dioxide 26 Anion Gap 12 BUN 12 D Creatinine 1.2 H Creat Clearance w eGFR 47.18 POC Glucometer Random Glucose 447 H* D Calcium 9.0 Total Bilirubin 0.4 D AST 12 L ALT 18 D Alkaline Phosphatase 113 D Total Protein 7.4 Albumin 3.4 Serum , Qual Urine Color Straw Urine Appearance Clear Urine pH 6.0 Ur Specific [place] 1.027 Urine Protein Negative Urine Glucose (UA) 3+ H Urine Ketones Negative Urine Blood Negative Urine Nitrite Negative Urine Bilirubin Negative Urine Urobilinogen Negative Ur Leukocyte Esterase 1+ H Urine WBC (Auto) 11 Urine RBC (Auto) 1 Ur Epithelial Cells Few 08/03/17 08/03/17 19:10 20:57 WBC RBC Hgb Hct MCV MCH MCHC RDW Plt Count MPV Neutrophils % Lymphocytes % Monocytes % Eosinophils % Basophils % Sodium Potassium Chloride Carbon Dioxide Anion Gap BUN Creatinine Creat Clearance w eGFR POC Glucometer > 400 Random Glucose Calcium Total Bilirubin AST ALT Alkaline Phosphatase Total Protein Albumin Serum , Qual Negative Urine Color Urine Appearance Urine pH Ur Specific [place] Urine Protein Urine Glucose (UA) Urine Ketones Urine Blood Urine Nitrite Urine Bilirubin Urine Urobilinogen Ur Leukocyte Esterase Urine WBC (Auto) Urine RBC (Auto) Ur Epithelial Cells Active Medications Generic Name Dose Route Start Last Admin Trade Name Freq PRN Reason Stop Dose Admin Acetaminophen 325 mg 08/04/17 12:02 Tylenol - PO Q6H PRN PAIN LEVEL 1-5 Albuterol Sulfate 2 puff 08/03/17 22:37 Ventolin Hfa Inhaler - IH Q4H PRN WHEEZING Atorvastatin Calcium 40 mg 08/04/17 22:00 Lipitor - PO HS [facility] Citalopram Hydrobromide 10 mg 08/04/17 10:00 Celexa - PO DAILY [facility] Gabapentin 300 mg 08/03/17 22:45 08/04/17 07:59 Neurontin - PO 300 mg TID [facility] Administration Levofloxacin 500 mg in 100 mls @ 100 mls/hr 08/04/17 12:00 08/04/17 13:30 Levaquin 500 Mg Premixed Ivpb - IVPB 100 mls DAILY [facility] Administration Metronidazole 500 mg in 100 mls @ 100 mls/hr 08/04/17 12:15 08/04/17 18:20 Flagyl 500mg Premixed Ivpb - IVPB 100 mls Q8H-IV [facility] Administration Piperacillin Sod/Tazobactam 100 mls @ 200 mls/hr 08/04/17 18:00 08/04/17 19: 00 Sod 3.375 gm/ Dextrose IVPB 100 mls Q8H-IV [facility] Administration Insulin Aspart 1 vial 08/04/17 07:00 08/04/17 08:08 Novolog Vial Sliding Scale - SQ 8 unit ACHS [facility] Administration Protocol Ondansetron HCl 4 mg 08/04/17 10:34 Zofran Injection IVPUSH Q6H PRN NAUSEA AND/OR VOMITING Oxycodone HCl 5 mg 08/04/17 12:05 Roxicodone - PO Q6H PRN PAIN LEVEL 1-5 Pantoprazole Sodium 40 mg 08/04/17 10:00 Protonix - PO DAILY [facility] Promethazine HCl 12.5 mg 08/04/17 10:34 Phenergan Injection - IVPUSH Q6H PRN NAUSEA-FOR RESCUE AFTER 15 MIN
[2017-08-03] MEDS ORDERED: ALBUTEROL SO4 18 GM HFA INHALER IH PRN (22:37)
[2017-08-03] MEDS ORDERED: GABAPENTIN 100 MG CAPSULE (FP) ONE (23:31)
[2017-08-03] MEDS: GABAPENTIN 300 MG CAPSULE (FP) PO SCH (23:34)
[2017-08-04] MEDS ORDERED: GABAPENTIN 100 MG CAPSULE (FP) ONE (06:58)
[2017-08-04] MEDS: GABAPENTIN 300 MG CAPSULE (FP) PO SCH ×3 (07:59→22:05)
[2017-08-04] MEDS: INSULIN SLIDING SCALE (NOVOLOG) 1 VIAL SQ SCH ×3 (08:08→22:05)
[2017-08-04 08:28] LABS: BASO % 0.8 % (0-2.0); EOS % 2.9 % (0-4.5); HEMATOCRIT 37.4 % (32.4-45.2); HEMOGLOBIN 12.2 GM/dL (10.7-15.3); LYMPH % 23.6 % (8-40); MCH 27.6 pg (25.7-33.7); MCHC 32.6 g/dl (32.0-36.0); MEAN CELL VOLUME 84.7 fl (80-96); MEAN PLT VOLUME 7.9 fl (7.5-11.1); MONO % 7.6 % (3.8-10.2); NEUT % 65.1 % (42.8-82.8); PLATELET COUNT 278 K/MM3 (134-434); RBC 4.42 M/mm3 (3.60-5.2); RDW 13.2 % (11.6-15.6); WHITE BLOOD COUNT 8.9 K/mm3 (4.0-10.0)
[2017-08-04 08:35] LABS: CHLORIDE 104 mmol/L (98-107); POTASSIUM 4.6 mmol/L (3.5-5.1); SODIUM 139 mmol/L (136-145)
[2017-08-04 08:45] LABS: ALBUMIN 3.2 g/dl (3.4-5.0); ALK PHOS 102 U/L (45-117); ANION GAP 6 (8-16); BILIRUBIN,TOTAL 0.6 mg/dL (0.2-1.0); BLOOD UREA NITROGEN 10 mg/dL (7-18); CALCIUM 9.1 mg/dL (8.5-10.1); CO2 29 mmol/L (21-32); SGOT/AST 5 U/L (15-37); SGPT/ALT 16 U/L (12-78); TOT PROT 7.1 g/dl (6.4-8.2)
[2017-08-04 09:20] LABS: GLUCOSE,RANDOM 317 mg/dL (74-106)
[2017-08-04] MEDS ORDERED: PROMETHAZINE HCL 25 MG/1 ML VIAL IVPUSH PRN (10:34)
[2017-08-04] MEDS ORDERED: ONDANSETRON 4 MG/2 ML VIAL IVPUSH PRN (10:34)
[2017-08-04] MEDS ORDERED: PROPOFOL 20 ML ONE ×2 (10:38)
[2017-08-04] MEDS ORDERED: KETOROLAC TROMETHAMINE 30 MG/1 ML VIAL ONE (10:38)
[2017-08-04] MEDS ORDERED: MIDAZOLAM HCL 2 MG/2 ML SINGLE DOSE VIAL ONE (10:39)
[2017-08-04] MEDS ORDERED: SUCCINYLCHOLINE CHLORIDE 200 MG/10 ML VIAL ONE (10:41)
[2017-08-04] MEDS ORDERED: LACTATED RINGERS SOLUTION 1,000 ML IV SCH (10:45)
[2017-08-04] MEDS ORDERED: GENTAMICIN SO4 80 MG/2 ML VIAL ONE (11:12)
[2017-08-04] MEDS ORDERED: ceFAZolin SODIUM 1 GM VIAL ONE (11:12)
[2017-08-04] MEDS ORDERED: ceFAZolin SODIUM 1 GM VIAL IVPB ONE (11:13)
[2017-08-04] MEDS ORDERED: GENTAMICIN SO4 80 MG/2 ML VIAL IVPB ONE (11:13)
--- NOTE | 2017-08-04 11:52 | CONSULT ---
Consult Consult Specialty:: General Surgery Referred by:: Meggan Hayes MD Reason for Consultation:: Perineal pain , perirectal abscess. - History of Present Illness Chief Complaint: C/O pain around the rectum for 4 days. - History Source History Provided By: Patient Limitations to Obtaining History: No Limitations - Past Medical History Cardio/Vascular: Yes: HTN, Hyperlipdemia Endocrine: Yes: Diabetes Mellitus - Past Surgical History Additional Surgical History: Tubal ligation. - Alcohol/Substance Use Hx Alcohol Use: No - Smoking History Smoking history: Never smoked - Social History History of Recent Travel: No Home Medications - Allergies Allergies/Adverse Reactions: Allergies Allergy/AdvReac Type Severity Reaction Status Date / Time No Known Allergies Allergy Verified 08/03/17 16:38 - Home Medications Home Medications: Ambulatory Orders Acetaminophen [Tylenol .Regular Strength -] 650 mg PO Q6H PRN #0 tablet Albuterol Sulfate Inhaler - [Ventolin HFA Inhaler -] 2 inh PO Q4H PRN #0 inh Atorvastatin Ca [Lipitor] 40 mg PO HS #30 tab 05/12/17 Citalopram Hydrobromide [Celexa -] 10 mg PO DAILY #30 tab 05/12/17 Gabapentin [Neurontin -] 300 mg PO Q8H #90 cap 05/12/17 Pantoprazole Sodium [Protonix -] 40 mg PO DAILY #30 tab 05/12/17 Insulin Glargine,Hum.rec.anlog [Lantus] 0 unit SQ ASDIR 08/03/17 Insulin Sliding Scale [Novolog Vial Sliding Scale -] 0 units SQ ACHS 08/03/17 Physical Exam Vital Signs: Vital Signs Temperature 98 F 08/04/17 09:00 Pulse Rate 81 08/04/17 09:00 Respiratory Rate 18 08/04/17 09:00 Blood Pressure 119/62 08/04/17 09:00 O2 Sat by Pulse Oximetry (%) 97 08/04/17 06:35 ...Rectal Exam: Yes: Erythema, Guaiac Trace, Induration (Induration and redness in right buttock and perianal area, with exquiste tenderness. with erythema.), Inflammation Labs: CBC, BMP 08/04/17 07:30 08/04/17 07:30 Imaging - Results Cat Scan: Report Reviewed, Image Reviewed Problem List - Problems (1) Perirectal abscess Code(s): K61.1 - RECTAL ABSCESS (2) Ischiorectal abscess Code(s): K61.3 - ISCHIORECTAL ABSCESS (3) Diabetes Code(s): E11.9 - TYPE 2 DIABETES MELLITUS WITHOUT COMPLICATIONS Qualifiers: Diabetes mellitus type: type 2 Diabetes mellitus complication status: without complication (4) HLD (hyperlipidemia) Code(s): E78.5 - HYPERLIPIDEMIA, UNSPECIFIED (5) HTN (hypertension) Code(s): I10 - ESSENTIAL (PRIMARY) HYPERTENSION Assessment/Plan Acute perirectal ./ perianal abscess. Plan : Antibiotics, incision and drainage. Consent obtained , scheduled for drainage of abscess.
--- NOTE | 2017-08-04 11:58 | OP ---
Operative Note - Note: Operative Date: 08/04/17 Pre-Operative Diagnosis: Perirectal abscess, hypertension , diabetes mellitus. Operation: Examination under anesthesia, incision and drainage of right sided , ischiorectal and perianal abscess. Findings: Abscess cavity in right isciorectal fossa, and right perirectal area , going around the perianal area , posteriorly to left side of the anus. Post-Operative Diagnosis: Other (Right sided ischiorectal and perirectal abscess.) Surgeon: Rebecca Machado Anesthesia: General Estimated Blood Loss (mls): 20 Operative Report Dictated: Yes
[2017-08-04] MEDS ORDERED: METRONIDAZOLE 500 MG PREMIXED 500 MG/100 ML MG IVPB ONE ×2 (12:14→18:19)
[2017-08-04] MEDS ORDERED: LEVOFLOXACIN 500 MG IVPB 500 MG/100 ML BAG IVPB ONE (12:14)
[2017-08-04] MEDS: METRONIDAZOLE 500 MG PREMIXED 500 MG/100 ML MG IVPB SCH ×2 (12:23→18:20)
[2017-08-04] MEDS: LEVOFLOXACIN 500 MG IVPB 500 MG/100 ML BAG IVPB SCH (13:30)
--- NOTE | 2017-08-04 15:46 | CON.ID ---
Consult Consult Specialty:: infectious diseases Reason for Consultation:: perirectal abscess - History of Present Illness Chief Complaint: pain perirectal region History of Present Illness: 52 year old female with a PMH of HTN, DLD, IDDM, and nephrolithiasis admitted with perirectal abcess inside the right buttock increasing in size and pain for the past week, patient was seen by surgery and decided to be taken to the operating room where patient underwent i and of the area patient now in pacu stable post op - History Source History Provided By: Patient Limitations to Obtaining History: No Limitations - Past Medical History Cardio/Vascular: Yes: HTN, Hyperlipdemia Endocrine: Yes: Diabetes Mellitus - Past Surgical History Additional Surgical History: Tubal ligation. - Alcohol/Substance Use Hx Alcohol Use: No - Smoking History Smoking history: Never smoked - Social History History of Recent Travel: No Home Medications - Allergies Allergies/Adverse Reactions: Allergies Allergy/AdvReac Type Severity Reaction Status Date / Time No Known Allergies Allergy Verified 08/03/17 16:38 - Home Medications Home Medications: Ambulatory Orders Acetaminophen [Tylenol .Regular Strength -] 650 mg PO Q6H PRN #0 tablet Albuterol Sulfate Inhaler - [Ventolin HFA Inhaler -] 2 inh PO Q4H PRN #0 inh Atorvastatin Ca [Lipitor] 40 mg PO HS #30 tab 05/12/17 Citalopram Hydrobromide [Celexa -] 10 mg PO DAILY #30 tab 05/12/17 Gabapentin [Neurontin -] 300 mg PO Q8H #90 cap 05/12/17 Pantoprazole Sodium [Protonix -] 40 mg PO DAILY #30 tab 05/12/17 Insulin Glargine,Hum.rec.anlog [Lantus] 0 unit SQ ASDIR 08/03/17 Insulin Sliding Scale [Novolog Vial Sliding Scale -] 0 units SQ ACHS 08/03/17 Review of Systems - Review of Systems Constitutional: reports: No Symptoms Eyes: reports: No Symptoms HENT: reports: No Symptoms Neck: reports: No Symptoms Cardiovascular: reports: No Symptoms Respiratory: reports: No Symptoms Gastrointestinal: reports: No Symptoms Genitourinary: reports: Other (pain rt buttock and swelling rt buttock) Musculoskeletal: reports: No Symptoms Integumentary: reports: No Symptoms Neurological: reports: No Symptoms Hematology/Lymphatic: reports: No Symptoms Psychiatric: reports: No Symptoms Physical Exam Vital Signs: Vital Signs Temperature 97.9 F 08/04/17 11:42 Pulse Rate 73 08/04/17 13:00 Respiratory Rate 10 L 08/04/17 13:00 Blood Pressure 106/76 08/04/17 13:00 O2 Sat by Pulse Oximetry (%) 94 L 08/04/17 13:00 Constitutional: Yes: Well Nourished, Calm HENT: Yes: Atraumatic Neck: Yes: Supple, Trachea Midline Cardiovascular: Yes: Regular Rate and Rhythm Respiratory: Yes: Regular, CTA Bilaterally Gastrointestinal: Yes: Normal Bowel Sounds, Soft Musculoskeletal: Yes: WNL Extremities: Yes: WNL Wound/Incision: Yes: Dressing Dry and Intact Neurological: Yes: Alert Psychiatric: Yes: Alert Labs: CBC, BMP 08/04/17 07:30 08/04/17 07:30 Imaging - Results Cat Scan: Report Reviewed, Image Reviewed Assessment/Plan Problem List - Problems (1) Perirectal abscess Code(s): K61.1 - RECTAL ABSCESS (2) Ischiorectal abscess Code(s): K61.3 - ISCHIORECTAL ABSCESS (3) Diabetes Code(s): E11.9 - TYPE 2 DIABETES MELLITUS WITHOUT COMPLICATIONS Qualifiers: Diabetes mellitus type: type 2 Diabetes mellitus complication status: without complication (4) HLD (hyperlipidemia) Code(s): E78.5 - HYPERLIPIDEMIA, UNSPECIFIED (5) HTN (hypertension) Code(s): I10 - ESSENTIAL (PRIMARY) HYPERTENSION plan start patient on zosyn await for all cx report rest as per surgery and primary care
--- NOTE | 2017-08-04 16:39 | OP ---
DATE OF OPERATION: 08/04/2017 PREOPERATIVE DIAGNOSES: Large right-sided perianal abscess, diabetes mellitus, hypertension. POSTOPERATIVE DIAGNOSES: Right-sided ischiorectal abscess and right perirectal abscess. OPERATIVE PROCEDURE: Incision and drainage of right ischiorectal and right perianal abscess and examination under anesthesia. SURGEON: Una Machado MD ANESTHESIA: General. DESCRIPTION OF OPERATIVE PROCEDURE: This 52-year-old woman had pain in the perirectal area for the past more than 4 days. Pain was exquisite and increasing in nature. Patient had a CAT scan done by the Emergency Room which showed a right-sided perirectal abscess. Patient was brought to the operating room for examination under anesthesia and drainage of the abscess. She was given general anesthesia. Consent was obtained. The risks, benefits, and complications were discussed with the patient. Patient was placed in lithotomy position. The perineum was painted and draped. The right side of the buttock was markedly swollen, very indurated, and edematous and hyperemic. The left side was normal. The anal canal was filled with stool. A cruciate incision was then made over the right buttock over the maximum extent of the swelling and edema. There was pus that was expressed out. This was noted in the right buttock in the ischiorectal area. This was also connected to the perianal and perirectal space. A finger was introduced into the space. All the loculations were opened. This extended posterior to the anal canal towards the left. It was a large cavity. This was thoroughly irrigated with peroxide and saline. All cavities were properly evacuated. After irrigation, the wound was packed with 2-inch Iodoform gauze and a dressing. Estimated blood loss was 20-25 mL. The patient had both right-sided ischiorectal and a large perianal abscess going around in a horseshoe fashion. Patient had been given antibiotics preoperatively and will continue to be on antibiotics. Levaquin and Flagyl have been prescribed. She needs wound irrigation and will be admitted. Naz GARCIA/[id number] cc: Mauro Montgomery MD [facility]
[2017-08-04] MEDS ORDERED: PIPERACILLIN/TAZOB 3.375 GM 50 ML IVPB SCH (18:00)
[2017-08-04] MEDS: PIPERACILLIN/TAZOB 3.375 GM 3.375 GM in DEXTROSE 5%-WATER - 100 ML IVPB SCH (19:00)
[2017-08-04] MEDS ORDERED: ACETAMINOPHEN 325 MG TABLET (FP) ONE (19:32)
--- NOTE | 2017-08-04 20:29 | PN ---
Progress Note, Physician History of Present Illness: s/p I and D - Current Medication List Current Medications: Active Medications Acetaminophen (Tylenol -) 325 mg PO Q6H PRN PRN Reason: PAIN LEVEL 1-5 Albuterol Sulfate (Ventolin Hfa Inhaler -) 2 puff IH Q4H PRN PRN Reason: WHEEZING Atorvastatin Calcium (Lipitor -) 40 mg PO [facility] Citalopram Hydrobromide (Celexa -) 10 mg PO DAILY [facility] Gabapentin (Neurontin -) 300 mg PO TID [facility] Last Admin: 08/04/17 07:59 Dose: 300 mg Levofloxacin (Levaquin 500 Mg Premixed Ivpb -) 500 mg in 100 mls @ 100 mls/hr IVPB DAILY [facility] Last Admin: 08/04/17 13:30 Dose: 100 mls Metronidazole (Flagyl 500mg Premixed Ivpb -) 500 mg in 100 mls @ 100 mls/hr IVPB Q8H-IV [facility] Last Admin: 08/04/17 18:20 Dose: 100 mls Piperacillin Sod/Tazobactam (Sod 3.375 gm/ Dextrose) 100 mls @ 200 mls/hr IVPB Q8H-IV [facility] Last Admin: 08/04/17 19:00 Dose: 100 mls Insulin Aspart (Novolog Vial Sliding Scale -) 1 vial SQ ACHS [facility] PRN Reason: Protocol Last Admin: 08/04/17 08:08 Dose: 8 unit Ondansetron HCl (Zofran Injection) 4 mg IVPUSH Q6H PRN PRN Reason: NAUSEA AND/OR VOMITING Oxycodone HCl (Roxicodone -) 5 mg PO Q6H PRN PRN Reason: PAIN LEVEL 1-5 Pantoprazole Sodium (Protonix -) 40 mg PO DAILY [facility] Promethazine HCl (Phenergan Injection -) 12.5 mg IVPUSH Q6H PRN PRN Reason: NAUSEA-FOR RESCUE AFTER 15 MIN - Objective Vital Signs: Vital Signs Temperature 97.8 F 08/04/17 15:45 Pulse Rate 77 08/04/17 17:30 Respiratory Rate 14 08/04/17 17:30 Blood Pressure 114/62 08/04/17 17:30 O2 Sat by Pulse Oximetry (%) 99 08/04/17 17:30 Constitutional: Yes: No Distress HENT: Yes: Atraumatic Neck: Yes: Supple Cardiovascular: Yes: Regular Rate and Rhythm Respiratory: Yes: CTA Bilaterally Gastrointestinal: Yes: Normal Bowel Sounds ...Rectal Exam: Yes: Other (dressing on left buttock) Extremities: Yes: WNL Neurological: Yes: Alert, Oriented Labs: CBC, BMP 08/04/17 07:30 08/04/17 07:30 Problem List - Problems (1) Diabetes Assessment/Plan: bgms sliding scale Code(s): E11.9 - TYPE 2 DIABETES MELLITUS WITHOUT COMPLICATIONS Qualifiers: Diabetes mellitus type: type 2 Diabetes mellitus complication status: without complication (2) HLD (hyperlipidemia) Code(s): E78.5 - HYPERLIPIDEMIA, UNSPECIFIED (3) HTN (hypertension) Code(s): I10 - ESSENTIAL (PRIMARY) HYPERTENSION (4) Abscess Assessment/Plan: s/p I and D on iv abx Code(s): L02.91 - CUTANEOUS ABSCESS, UNSPECIFIED
[2017-08-04] MEDS ORDERED: ACETAMINOPHEN 325 MG TABLET (FP) PO ONE (21:12)
[2017-08-04] MEDS ORDERED: INSULIN (NOVOLOG) ASPART 100 UNITS/ML 10ML VIAL ONE (21:59)
[2017-08-04] MEDS: ATORVASTATIN CA 40 MG TABLET (FP) PO SCH (22:05)
[2017-08-04] MEDS: PANTOPRAZOLE 40 MG TABLET (FP) PO SCH (22:21)
[2017-08-04] MEDS: CITALOPRAM HYDROBROMIDE 10 MG TABLET (FP) PO SCH (22:21)
[2017-08-05] MEDS ORDERED: PT OWN MED DRAWER 7, Y5N ONE ×2 (01:18→17:03)
[2017-08-05] MEDS: PIPERACILLIN/TAZOB 3.375 GM 3.375 GM in DEXTROSE 5%-WATER - 100 ML IVPB SCH ×3 (01:47→17:15)
[2017-08-05] MEDS: METRONIDAZOLE 500 MG PREMIXED 500 MG/100 ML MG IVPB SCH ×3 (01:48→17:14)
[2017-08-05] MEDS ORDERED: INSULIN (NOVOLOG) ASPART 100 UNITS/ML 10ML VIAL ONE (06:03)
[2017-08-05] MEDS: INSULIN SLIDING SCALE (NOVOLOG) 1 VIAL SQ SCH ×4 (06:09→22:51)
[2017-08-05] MEDS: GABAPENTIN 300 MG CAPSULE (FP) PO SCH ×3 (06:09→22:49)
[2017-08-05] MEDS: oxyCODONE HCL 5 MG TABLET PO PRN ×2 (06:11→12:02)
[2017-08-05] MEDS: ACETAMINOPHEN 325 MG TABLET (FP) PO PRN ×2 (06:12→12:03)
[2017-08-05] MEDS: LEVOFLOXACIN 500 MG IVPB 500 MG/100 ML BAG IVPB SCH (10:53)
[2017-08-05] MEDS: PANTOPRAZOLE 40 MG TABLET (FP) PO SCH (10:54)
[2017-08-05] MEDS: CITALOPRAM HYDROBROMIDE 10 MG TABLET (FP) PO SCH (10:54)
--- NOTE | 2017-08-05 11:45 | PN ---
Progress Note, Physician - Current Medication List Current Medications: Active Medications Acetaminophen (Tylenol -) 325 mg PO Q6H PRN PRN Reason: PAIN LEVEL 1-5 Last Admin: 08/05/17 06:12 Dose: 325 mg Albuterol Sulfate (Ventolin Hfa Inhaler -) 2 puff IH Q4H PRN PRN Reason: WHEEZING Atorvastatin Calcium (Lipitor -) 40 mg PO HS [facility] Last Admin: 08/04/17 22:05 Dose: 40 mg Citalopram Hydrobromide (Celexa -) 10 mg PO DAILY [facility] Last Admin: 08/05/17 10:54 Dose: 10 mg Gabapentin (Neurontin -) 300 mg PO TID [facility] Last Admin: 08/05/17 06:09 Dose: 300 mg Levofloxacin (Levaquin 500 Mg Premixed Ivpb -) 500 mg in 100 mls @ 100 mls/hr IVPB DAILY [facility] Last Admin: 08/05/17 10:53 Dose: 100 mls/hr Metronidazole (Flagyl 500mg Premixed Ivpb -) 500 mg in 100 mls @ 100 mls/hr IVPB Q8H-IV [facility] Last Admin: 08/05/17 10:53 Dose: 100 mls/hr Piperacillin Sod/Tazobactam (Sod 3.375 gm/ Dextrose) 100 mls @ 200 mls/hr IVPB Q8H-IV [facility] Last Admin: 08/05/17 10:53 Dose: 200 mls/hr Insulin Aspart (Novolog Vial Sliding Scale -) 1 vial SQ ACHS [facility] PRN Reason: Protocol Last Admin: 08/05/17 06:09 Dose: 8 units Ondansetron HCl (Zofran Injection) 4 mg IVPUSH Q6H PRN PRN Reason: NAUSEA AND/OR VOMITING Oxycodone HCl (Roxicodone -) 5 mg PO Q6H PRN PRN Reason: PAIN LEVEL 1-5 Last Admin: 08/05/17 06:11 Dose: 5 mg Pantoprazole Sodium (Protonix -) 40 mg PO DAILY [facility] Last Admin: 08/05/17 10:54 Dose: 40 mg Promethazine HCl (Phenergan Injection -) 12.5 mg IVPUSH Q6H PRN PRN Reason: NAUSEA-FOR RESCUE AFTER 15 MIN - Objective Vital Signs: Vital Signs Temperature 98.9 F 08/05/17 06:00 Pulse Rate 92 H 08/05/17 06:00 Respiratory Rate 20 08/05/17 06:00 Blood Pressure 147/71 08/05/17 06:00 O2 Sat by Pulse Oximetry (%) 95 08/04/17 20:00 Labs: CBC, BMP 08/04/17 07:30 08/04/17 07:30 Problem List - Problems (1) Perirectal abscess Code(s): K61.1 - RECTAL ABSCESS (2) Ischiorectal abscess Code(s): K61.3 - ISCHIORECTAL ABSCESS (3) Diabetes Code(s): E11.9 - TYPE 2 DIABETES MELLITUS WITHOUT COMPLICATIONS Qualifiers: Diabetes mellitus type: type 2 Diabetes mellitus complication status: without complication (4) HLD (hyperlipidemia) Code(s): E78.5 - HYPERLIPIDEMIA, UNSPECIFIED (5) HTN (hypertension) Code(s): I10 - ESSENTIAL (PRIMARY) HYPERTENSION Assessment/Plan Surgery: Patient is afebrile. Pain has improved. Dressing changed, packing changed. No purulent drainage seen. Gram stain shows gram positive in clusters, no mention of gram negative organism. Patient is on Piperacillin. WBC has improved, Continue antibiotics, Sitz bath, Possible discharge in am,
--- NOTE | 2017-08-05 17:49 | PN ---
Progress Note, Physician History of Present Illness: s/p I and D - Current Medication List Current Medications: Active Medications Acetaminophen (Tylenol -) 325 mg PO Q6H PRN PRN Reason: PAIN LEVEL 1-5 Last Admin: 08/05/17 12:03 Dose: 325 mg Albuterol Sulfate (Ventolin Hfa Inhaler -) 2 puff IH Q4H PRN PRN Reason: WHEEZING Atorvastatin Calcium (Lipitor -) 40 mg PO HS [facility] Last Admin: 08/04/17 22:05 Dose: 40 mg Citalopram Hydrobromide (Celexa -) 10 mg PO DAILY [facility] Last Admin: 08/05/17 10:54 Dose: 10 mg Gabapentin (Neurontin -) 300 mg PO TID [facility] Last Admin: 08/05/17 14:24 Dose: 300 mg Levofloxacin (Levaquin 500 Mg Premixed Ivpb -) 500 mg in 100 mls @ 100 mls/hr IVPB DAILY [facility] Last Admin: 08/05/17 10:53 Dose: 100 mls/hr Metronidazole (Flagyl 500mg Premixed Ivpb -) 500 mg in 100 mls @ 100 mls/hr IVPB Q8H-IV [facility] Last Admin: 08/05/17 17:14 Dose: 100 mls/hr Piperacillin Sod/Tazobactam (Sod 3.375 gm/ Dextrose) 100 mls @ 200 mls/hr IVPB Q8H-IV [facility] Last Admin: 08/05/17 17:15 Dose: 200 mls/hr Insulin Aspart (Novolog Vial Sliding Scale -) 1 vial SQ ACHS [facility] PRN Reason: Protocol Last Admin: 08/05/17 17:12 Dose: 12 units Ondansetron HCl (Zofran Injection) 4 mg IVPUSH Q6H PRN PRN Reason: NAUSEA AND/OR VOMITING Oxycodone HCl (Roxicodone -) 5 mg PO Q6H PRN PRN Reason: PAIN LEVEL 1-5 Last Admin: 08/05/17 12:02 Dose: 5 mg Pantoprazole Sodium (Protonix -) 40 mg PO DAILY [facility] Last Admin: 08/05/17 10:54 Dose: 40 mg Promethazine HCl (Phenergan Injection -) 12.5 mg IVPUSH Q6H PRN PRN Reason: NAUSEA-FOR RESCUE AFTER 15 MIN - Objective Vital Signs: Vital Signs Temperature 97.5 F L 08/05/17 14:10 Pulse Rate 90 08/05/17 14:10 Respiratory Rate 16 08/05/17 14:10 Blood Pressure 147/73 08/05/17 14:10 O2 Sat by Pulse Oximetry (%) 96 08/05/17 09:00 Constitutional: Yes: No Distress HENT: Yes: Atraumatic Neck: Yes: Supple Cardiovascular: Yes: Regular Rate and Rhythm Respiratory: Yes: CTA Bilaterally Gastrointestinal: Yes: Normal Bowel Sounds Extremities: Yes: WNL Edema: No Peripheral Pulses WNL: Yes Neurological: Yes: Alert, Oriented Labs: CBC, BMP 08/04/17 07:30 08/04/17 07:30 Problem List - Problems (1) Diabetes Assessment/Plan: bgms sliding scale will check hgba1c Code(s): E11.9 - TYPE 2 DIABETES MELLITUS WITHOUT COMPLICATIONS Qualifiers: Diabetes mellitus type: type 2 Diabetes mellitus complication status: without complication (2) HLD (hyperlipidemia) Code(s): E78.5 - HYPERLIPIDEMIA, UNSPECIFIED (3) HTN (hypertension) Code(s): I10 - ESSENTIAL (PRIMARY) HYPERTENSION
--- NOTE | 2017-08-05 18:27 | PN ---
Progress Note, Physician History of Present Illness: feeling better getting sitz bath c/o of gerd - Current Medication List Current Medications: Active Medications Acetaminophen (Tylenol -) 325 mg PO Q6H PRN PRN Reason: PAIN LEVEL 1-5 Last Admin: 08/05/17 12:03 Dose: 325 mg Albuterol Sulfate (Ventolin Hfa Inhaler -) 2 puff IH Q4H PRN PRN Reason: WHEEZING Atorvastatin Calcium (Lipitor -) 40 mg PO HS [facility] Last Admin: 08/04/17 22:05 Dose: 40 mg Citalopram Hydrobromide (Celexa -) 10 mg PO DAILY [facility] Last Admin: 08/05/17 10:54 Dose: 10 mg Gabapentin (Neurontin -) 300 mg PO TID [facility] Last Admin: 08/05/17 14:24 Dose: 300 mg Levofloxacin (Levaquin 500 Mg Premixed Ivpb -) 500 mg in 100 mls @ 100 mls/hr IVPB DAILY [facility] Last Admin: 08/05/17 10:53 Dose: 100 mls/hr Metronidazole (Flagyl 500mg Premixed Ivpb -) 500 mg in 100 mls @ 100 mls/hr IVPB Q8H-IV [facility] Last Admin: 08/05/17 17:14 Dose: 100 mls/hr Piperacillin Sod/Tazobactam (Sod 3.375 gm/ Dextrose) 100 mls @ 200 mls/hr IVPB Q8H-IV [facility] Last Admin: 08/05/17 17:15 Dose: 200 mls/hr Insulin Aspart (Novolog Vial Sliding Scale -) 1 vial SQ ACHS [facility] PRN Reason: Protocol Last Admin: 08/05/17 17:12 Dose: 12 units Ondansetron HCl (Zofran Injection) 4 mg IVPUSH Q6H PRN PRN Reason: NAUSEA AND/OR VOMITING Oxycodone HCl (Roxicodone -) 5 mg PO Q6H PRN PRN Reason: PAIN LEVEL 1-5 Last Admin: 08/05/17 12:02 Dose: 5 mg Pantoprazole Sodium (Protonix -) 40 mg PO DAILY [facility] Last Admin: 08/05/17 10:54 Dose: 40 mg Promethazine HCl (Phenergan Injection -) 12.5 mg IVPUSH Q6H PRN PRN Reason: NAUSEA-FOR RESCUE AFTER 15 MIN - Objective Vital Signs: Vital Signs Temperature 97.5 F L 08/05/17 14:10 Pulse Rate 90 08/05/17 14:10 Respiratory Rate 16 08/05/17 14:10 Blood Pressure 147/73 08/05/17 14:10 O2 Sat by Pulse Oximetry (%) 96 08/05/17 09:00 Constitutional: Yes: Calm, Mild Distress Cardiovascular: Yes: Regular Rate and Rhythm Respiratory: Yes: Regular, CTA Bilaterally Musculoskeletal: Yes: WNL Extremities: Yes: WNL Wound/Incision: Yes: Clean/Dry Neurological: Yes: Alert, Oriented Psychiatric: Yes: Alert, Oriented Labs: CBC, BMP 08/04/17 07:30 08/04/17 07:30 Assessment/Plan Problem List - Problems (1) Perirectal abscess Code(s): K61.1 - RECTAL ABSCESS (2) Ischiorectal abscess Code(s): K61.3 - ISCHIORECTAL ABSCESS (3) Diabetes Code(s): E11.9 - TYPE 2 DIABETES MELLITUS WITHOUT COMPLICATIONS Qualifiers: Diabetes mellitus type: type 2 Diabetes mellitus complication status: without complication (4) HLD (hyperlipidemia) Code(s): E78.5 - HYPERLIPIDEMIA, UNSPECIFIED (5) HTN (hypertension) Code(s): I10 - ESSENTIAL (PRIMARY) HYPERTENSION plan continue abx cx result noted await for sensitivities rest as per primary team
[2017-08-05] MEDS: ATORVASTATIN CA 40 MG TABLET (FP) PO SCH (22:49)
[2017-08-05] MEDS: INSULIN DETEMIR 100 UNITS/ML MDV SQ SCH (22:49)
[2017-08-06] MEDS ORDERED: PT OWN MED DRAWER 7, Y5N ONE (01:12)
[2017-08-06] MEDS: PIPERACILLIN/TAZOB 3.375 GM 3.375 GM in DEXTROSE 5%-WATER - 100 ML IVPB SCH ×3 (01:16→17:48)
[2017-08-06] MEDS: ACETAMINOPHEN 325 MG TABLET (FP) PO PRN ×3 (01:16→20:27)
[2017-08-06] MEDS: oxyCODONE HCL 5 MG TABLET PO PRN ×3 (01:17→20:25)
[2017-08-06] MEDS: GABAPENTIN 300 MG CAPSULE (FP) PO SCH ×3 (06:23→21:04)
[2017-08-06] MEDS: INSULIN SLIDING SCALE (NOVOLOG) 1 VIAL SQ SCH ×4 (06:23→21:04)
[2017-08-06] MEDS: PANTOPRAZOLE 40 MG TABLET (FP) PO SCH (10:08)
[2017-08-06] MEDS: CITALOPRAM HYDROBROMIDE 10 MG TABLET (FP) PO SCH (10:08)
[2017-08-06] MEDS ORDERED: INSULIN (NOVOLOG) ASPART 100 UNITS/ML 10ML VIAL ONE (10:51)
--- NOTE | 2017-08-06 13:19 | PN ---
Progress Note, Physician History of Present Illness: stable no new issues - Current Medication List Current Medications: Active Medications Acetaminophen (Tylenol -) 325 mg PO Q6H PRN PRN Reason: PAIN LEVEL 1-5 Last Admin: 08/06/17 10:55 Dose: 325 mg Albuterol Sulfate (Ventolin Hfa Inhaler -) 2 puff IH Q4H PRN PRN Reason: WHEEZING Atorvastatin Calcium (Lipitor -) 40 mg PO HS [facility] Last Admin: 08/05/17 22:49 Dose: 40 mg Citalopram Hydrobromide (Celexa -) 10 mg PO DAILY [facility] Last Admin: 08/06/17 10:08 Dose: 10 mg Gabapentin (Neurontin -) 300 mg PO TID [facility] Last Admin: 08/06/17 06:23 Dose: 300 mg Piperacillin Sod/Tazobactam (Sod 3.375 gm/ Dextrose) 100 mls @ 200 mls/hr IVPB Q8H-IV [facility] Last Admin: 08/06/17 10:08 Dose: 200 mls/hr Insulin Aspart (Novolog Vial Sliding Scale -) 1 vial SQ ACHS [facility] PRN Reason: Protocol Last Admin: 08/06/17 10:58 Dose: 10 units Insulin Detemir (Levemir Vial) 25 units SQ [facility] Last Admin: 08/05/17 22:49 Dose: 25 units Ondansetron HCl (Zofran Injection) 4 mg IVPUSH Q6H PRN PRN Reason: NAUSEA AND/OR VOMITING Oxycodone HCl (Roxicodone -) 5 mg PO Q6H PRN PRN Reason: PAIN LEVEL 1-5 Last Admin: 08/06/17 10:55 Dose: 5 mg Pantoprazole Sodium (Protonix -) 40 mg PO DAILY [facility] Last Admin: 08/06/17 10:08 Dose: 40 mg Promethazine HCl (Phenergan Injection -) 12.5 mg IVPUSH Q6H PRN PRN Reason: NAUSEA-FOR RESCUE AFTER 15 MIN - Objective Vital Signs: Vital Signs Temperature 98.0 F 08/06/17 10:02 Pulse Rate 87 08/06/17 10:02 Respiratory Rate 18 08/06/17 10:02 Blood Pressure 147/81 08/06/17 10:02 O2 Sat by Pulse Oximetry (%) 96 08/05/17 21:00 Constitutional: Yes: No Distress, Calm Cardiovascular: Yes: Regular Rate and Rhythm Respiratory: Yes: Regular, CTA Bilaterally Gastrointestinal: Yes: Normal Bowel Sounds, Soft Musculoskeletal: Yes: WNL Extremities: Yes: WNL Wound/Incision: Yes: Dressing Dry and Intact Neurological: Yes: Alert, Oriented Psychiatric: Yes: Alert, Oriented Labs: CBC, BMP 08/04/17 07:30 08/04/17 07:30 Assessment/Plan Problem List - Problems (1) Perirectal abscess Code(s): K61.1 - RECTAL ABSCESS (2) Ischiorectal abscess Code(s): K61.3 - ISCHIORECTAL ABSCESS (3) Diabetes Code(s): E11.9 - TYPE 2 DIABETES MELLITUS WITHOUT COMPLICATIONS Qualifiers: Diabetes mellitus type: type 2 Diabetes mellitus complication status: without complication (4) HLD (hyperlipidemia) Code(s): E78.5 - HYPERLIPIDEMIA, UNSPECIFIED (5) HTN (hypertension) Code(s): I10 - ESSENTIAL (PRIMARY) HYPERTENSION plan continue abx cx result noted sensitivities note will decide on further mgmt rest as per primary team
--- NOTE | 2017-08-06 16:16 | PN ---
Progress Note, Physician - Current Medication List Current Medications: Active Medications Acetaminophen (Tylenol -) 325 mg PO Q6H PRN PRN Reason: PAIN LEVEL 1-5 Last Admin: 08/06/17 10:55 Dose: 325 mg Albuterol Sulfate (Ventolin Hfa Inhaler -) 2 puff IH Q4H PRN PRN Reason: WHEEZING Atorvastatin Calcium (Lipitor -) 40 mg PO HS [facility] Last Admin: 08/05/17 22:49 Dose: 40 mg Citalopram Hydrobromide (Celexa -) 10 mg PO DAILY [facility] Last Admin: 08/06/17 10:08 Dose: 10 mg Gabapentin (Neurontin -) 300 mg PO TID [facility] Last Admin: 08/06/17 13:33 Dose: 300 mg Piperacillin Sod/Tazobactam (Sod 3.375 gm/ Dextrose) 100 mls @ 200 mls/hr IVPB Q8H-IV [facility] Last Admin: 08/06/17 10:08 Dose: 200 mls/hr Insulin Aspart (Novolog Vial Sliding Scale -) 1 vial SQ [facility] PRN Reason: Protocol Last Admin: 08/06/17 10:58 Dose: 10 units Insulin Detemir (Levemir Vial) 25 units SQ [facility] Last Admin: 08/05/17 22:49 Dose: 25 units Ondansetron HCl (Zofran Injection) 4 mg IVPUSH Q6H PRN PRN Reason: NAUSEA AND/OR VOMITING Oxycodone HCl (Roxicodone -) 5 mg PO Q6H PRN PRN Reason: PAIN LEVEL 1-5 Last Admin: 08/06/17 10:55 Dose: 5 mg Pantoprazole Sodium (Protonix -) 40 mg PO DAILY [facility] Last Admin: 08/06/17 10:08 Dose: 40 mg Promethazine HCl (Phenergan Injection -) 12.5 mg IVPUSH Q6H PRN PRN Reason: NAUSEA-FOR RESCUE AFTER 15 MIN - Objective Vital Signs: Vital Signs Temperature 98.7 F 08/06/17 13:52 Pulse Rate 79 08/06/17 13:52 Respiratory Rate 16 08/06/17 13:52 Blood Pressure 128/71 08/06/17 13:52 O2 Sat by Pulse Oximetry (%) 96 08/06/17 09:00 Labs: CBC, BMP 08/04/17 07:30 08/04/17 07:30 Problem List - Problems (1) Perirectal abscess Code(s): K61.1 - RECTAL ABSCESS (2) Ischiorectal abscess Code(s): K61.3 - ISCHIORECTAL ABSCESS (3) Diabetes Code(s): E11.9 - TYPE 2 DIABETES MELLITUS WITHOUT COMPLICATIONS Qualifiers: Diabetes mellitus type: type 2 Diabetes mellitus complication status: without complication (4) HLD (hyperlipidemia) Code(s): E78.5 - HYPERLIPIDEMIA, UNSPECIFIED (5) HTN (hypertension) Code(s): I10 - ESSENTIAL (PRIMARY) HYPERTENSION Assessment/Plan Surgery: Patient is afebrile. Culture showing MSSA, E.Coli, diptheroid, , Klebsiella and Staph. Wound healig. Discharge as per primary team. Continue sitz bath., antibiotics.
--- NOTE | 2017-08-06 17:07 | PN ---
Progress Note, Physician - Current Medication List Current Medications: Active Medications Acetaminophen (Tylenol -) 325 mg PO Q6H PRN PRN Reason: PAIN LEVEL 1-5 Last Admin: 08/06/17 10:55 Dose: 325 mg Albuterol Sulfate (Ventolin Hfa Inhaler -) 2 puff IH Q4H PRN PRN Reason: WHEEZING Atorvastatin Calcium (Lipitor -) 40 mg PO HS [facility] Last Admin: 08/05/17 22:49 Dose: 40 mg Citalopram Hydrobromide (Celexa -) 10 mg PO DAILY [facility] Last Admin: 08/06/17 10:08 Dose: 10 mg Gabapentin (Neurontin -) 300 mg PO TID [facility] Last Admin: 08/06/17 13:33 Dose: 300 mg Piperacillin Sod/Tazobactam (Sod 3.375 gm/ Dextrose) 100 mls @ 200 mls/hr IVPB Q8H-IV [facility] Last Admin: 08/06/17 10:08 Dose: 200 mls/hr Insulin Aspart (Novolog Vial Sliding Scale -) 1 vial SQ [facility] PRN Reason: Protocol Last Admin: 08/06/17 16:33 Dose: 14 units Insulin Detemir (Levemir Vial) 25 units SQ [facility] Last Admin: 08/05/17 22:49 Dose: 25 units Ondansetron HCl (Zofran Injection) 4 mg IVPUSH Q6H PRN PRN Reason: NAUSEA AND/OR VOMITING Oxycodone HCl (Roxicodone -) 5 mg PO Q6H PRN PRN Reason: PAIN LEVEL 1-5 Last Admin: 08/06/17 10:55 Dose: 5 mg Pantoprazole Sodium (Protonix -) 40 mg PO DAILY [facility] Last Admin: 08/06/17 10:08 Dose: 40 mg Promethazine HCl (Phenergan Injection -) 12.5 mg IVPUSH Q6H PRN PRN Reason: NAUSEA-FOR RESCUE AFTER 15 MIN - Objective Vital Signs: Vital Signs Temperature 98.7 F 08/06/17 13:52 Pulse Rate 79 08/06/17 13:52 Respiratory Rate 16 08/06/17 13:52 Blood Pressure 128/71 08/06/17 13:52 O2 Sat by Pulse Oximetry (%) 96 08/06/17 09:00 Constitutional: Yes: No Distress HENT: Yes: Atraumatic Neck: Yes: Supple Cardiovascular: Yes: Regular Rate and Rhythm Respiratory: Yes: CTA Bilaterally Gastrointestinal: Yes: Normal Bowel Sounds Extremities: Yes: WNL Neurological: Yes: Alert, Oriented Labs: CBC, BMP 08/04/17 07:30 08/04/17 07:30 Problem List - Problems (1) Diabetes Assessment/Plan: bgms sliding scale will check hgba1c Code(s): E11.9 - TYPE 2 DIABETES MELLITUS WITHOUT COMPLICATIONS Qualifiers: Diabetes mellitus type: type 2 Diabetes mellitus complication status: without complication (2) HLD (hyperlipidemia) Code(s): E78.5 - HYPERLIPIDEMIA, UNSPECIFIED (3) HTN (hypertension) Code(s): I10 - ESSENTIAL (PRIMARY) HYPERTENSION (4) Abscess Assessment/Plan: s/p I and D on iv abx need id to lets us know about po Code(s): L02.91 - CUTANEOUS ABSCESS, UNSPECIFIED
[2017-08-06] MEDS: ATORVASTATIN CA 40 MG TABLET (FP) PO SCH (21:04)
[2017-08-06] MEDS: INSULIN DETEMIR 100 UNITS/ML MDV SQ SCH (21:04)
[2017-08-06] MEDS ORDERED: INSULIN (NOVOLOG) ASPART 100 UNITS/ML 10ML VIAL SQ ONE (23:30)
[2017-08-07] MEDS: PIPERACILLIN/TAZOB 3.375 GM 3.375 GM in DEXTROSE 5%-WATER - 100 ML IVPB SCH ×2 (02:36→10:33)
[2017-08-07] MEDS ORDERED: INSULIN (NOVOLOG) ASPART 100 UNITS/ML 10ML VIAL SQ ONE (06:15)
[2017-08-07] MEDS: INSULIN SLIDING SCALE (NOVOLOG) 1 VIAL SQ SCH ×2 (06:31→11:16)
[2017-08-07] MEDS: GABAPENTIN 300 MG CAPSULE (FP) PO SCH ×2 (06:32→13:59)
[2017-08-07] MEDS ORDERED: INSULIN (NOVOLOG) ASPART 100 UNITS/ML 10ML VIAL ONE (06:36)
[2017-08-07] MEDS ORDERED: PT OWN MED DRAWER 7, Y5N ONE (09:58)
[2017-08-07] MEDS: PANTOPRAZOLE 40 MG TABLET (FP) PO SCH (10:34)
[2017-08-07] MEDS: CITALOPRAM HYDROBROMIDE 10 MG TABLET (FP) PO SCH (10:34)
--- NOTE | 2017-08-07 11:48 | PN ---
Progress Note, Physician History of Present Illness: patient stable no new issues - Current Medication List Current Medications: Active Medications Acetaminophen (Tylenol -) 325 mg PO Q6H PRN PRN Reason: PAIN LEVEL 1-5 Last Admin: 08/06/17 20:27 Dose: 325 mg Albuterol Sulfate (Ventolin Hfa Inhaler -) 2 puff IH Q4H PRN PRN Reason: WHEEZING Atorvastatin Calcium (Lipitor -) 40 mg PO HS [facility] Last Admin: 08/06/17 21:04 Dose: 40 mg Citalopram Hydrobromide (Celexa -) 10 mg PO DAILY [facility] Last Admin: 08/07/17 10:34 Dose: 10 mg Gabapentin (Neurontin -) 300 mg PO TID [facility] Last Admin: 08/07/17 06:32 Dose: 300 mg Piperacillin Sod/Tazobactam (Sod 3.375 gm/ Dextrose) 100 mls @ 200 mls/hr IVPB Q8H-IV [facility] Last Admin: 08/07/17 10:33 Dose: 200 mls/hr Insulin Aspart (Novolog Vial Sliding Scale -) 1 vial SQ ACHS [facility] PRN Reason: Protocol Last Admin: 08/07/17 11:16 Dose: 12 units Insulin Detemir (Levemir Vial) 25 units SQ [facility] Last Admin: 08/06/17 21:04 Dose: 25 units Ondansetron HCl (Zofran Injection) 4 mg IVPUSH Q6H PRN PRN Reason: NAUSEA AND/OR VOMITING Oxycodone HCl (Roxicodone -) 5 mg PO Q6H PRN PRN Reason: PAIN LEVEL 1-5 Last Admin: 08/06/17 20:25 Dose: 5 mg Pantoprazole Sodium (Protonix -) 40 mg PO DAILY [facility] Last Admin: 08/07/17 10:34 Dose: 40 mg Promethazine HCl (Phenergan Injection -) 12.5 mg IVPUSH Q6H PRN PRN Reason: NAUSEA-FOR RESCUE AFTER 15 MIN - Objective Vital Signs: Vital Signs Temperature 97.6 F 08/07/17 09:49 Pulse Rate 79 08/07/17 09:49 Respiratory Rate 20 08/07/17 09:49 Blood Pressure 116/73 08/07/17 09:49 O2 Sat by Pulse Oximetry (%) 96 01/11/18 21:00 Constitutional: Yes: No Distress, Calm, Obese Cardiovascular: Yes: Regular Rate and Rhythm Respiratory: Yes: Regular, CTA Bilaterally Gastrointestinal: Yes: Normal Bowel Sounds, Soft Musculoskeletal: Yes: WNL Extremities: Yes: WNL Wound/Incision: Yes: Dressing Dry and Intact Neurological: Yes: Alert, Oriented Psychiatric: Yes: Alert, Oriented Labs: CBC, BMP 08/04/17 07:30 08/06/17 17:50 Assessment/Plan Problem List - Problems (1) Perirectal abscess Code(s): K61.1 - RECTAL ABSCESS (2) Ischiorectal abscess Code(s): K61.3 - ISCHIORECTAL ABSCESS (3) Diabetes Code(s): E11.9 - TYPE 2 DIABETES MELLITUS WITHOUT COMPLICATIONS Qualifiers: Diabetes mellitus type: type 2 Diabetes mellitus complication status: without complication (4) HLD (hyperlipidemia) Code(s): E78.5 - HYPERLIPIDEMIA, UNSPECIFIED (5) HTN (hypertension) Code(s): I10 - ESSENTIAL (PRIMARY) HYPERTENSION plan cx result noted changed abx to oral ceftin and augmentin to continue abx for 7 more days wound care
[2017-08-07] MEDS ORDERED: CEFUROXIME AXETIL 500 MG TABLET PO SCH (12:15)
--- NOTE | 2017-08-07 13:06 | DS ---
Physical Examination Vital Signs: Vital Signs Temperature 97.6 F 08/07/17 09:49 Pulse Rate 79 08/07/17 09:49 Respiratory Rate 20 08/07/17 09:49 Blood Pressure 116/73 08/07/17 09:49 O2 Sat by Pulse Oximetry (%) 99 08/07/17 09:00 Constitutional: Yes: No Distress HENT: Yes: Atraumatic Neck: Yes: Supple Cardiovascular: Yes: Regular Rate and Rhythm Respiratory: Yes: CTA Bilaterally Gastrointestinal: Yes: Normal Bowel Sounds Extremities: Yes: WNL Wound/Incision: Yes: Clean/Dry Neurological: Yes: Alert, Oriented Labs: CBC, BMP 08/04/17 07:30 08/06/17 17:50 Discharge Summary Reason For Visit: ABSCESS,PERIRECTAL ABSCESS Current Active Problems Abscess (Acute) Diabetes (Acute) Ischiorectal abscess (Acute) Perirectal abscess (Acute) Condition: Stable - Instructions Referrals: Yohannes Baumann MD [Primary Care Provider] - Suzanna Hanson [Non Staff, Medical] - Abigail Montgomery MD [Staff Physician] - Disposition: HOME - Home Medications Comprehensive Discharge Medication List: Ambulatory Orders Acetaminophen [Tylenol .Regular Strength -] 650 mg PO Q6H PRN #0 tablet Albuterol Sulfate Inhaler - [Ventolin HFA Inhaler -] 2 inh PO Q4H PRN #0 inh Atorvastatin Ca [Lipitor] 40 mg PO HS #30 tab 05/12/17 Citalopram Hydrobromide [Celexa -] 10 mg PO DAILY #30 tab 05/12/17 Gabapentin [Neurontin -] 300 mg PO Q8H #90 cap 05/12/17 Pantoprazole Sodium [Protonix -] 40 mg PO DAILY #30 tab 05/12/17 Insulin Glargine,Hum.rec.anlog [Lantus] 0 unit SQ [facility] 08/03/17 Insulin Sliding Scale [Novolog Vial Sliding Scale -] 0 units SQ ACHS 08/03/17 Amox-Tr/K Cl [Augmentin 875-125mg Tablet -] 1 tab PO BID@0800,1730 #14 tablet Cefuroxime Axetil [Ceftin -] 500 mg PO BID #14 tablet 08/07/17 dc home
[2017-08-07 13:55] VITALS: BP 141/80; PULSE 81; TEMP 98
[2017-08-07] MEDS ORDERED: AMOX TR/POT CLAV 875MG/125MG TABLETS (FP) PO SCH (17:30)
== END 2017-08-07 14:25 | disposition home or self-care (01) | DRG 254 ==
LOC: JER 16:33 → JERBED 21:20 → J4S 08-04 20:00 → JERBED 08-05 23:45 → J4S 08-05 23:46
PROVIDERS: ADMIT Internal Medicine; ATTEND Internal Medicine
PROC: 0D9Q3ZX Drainage of Anus, Percutaneous Approach, Diagnostic (ICD-10-PCS; 2017-08-04)
PROC: 0J9B3ZX Drainage of Perineum Subcutaneous Tissue and Fascia, Percutaneous Approach, Diagnostic (ICD-10-PCS; principal; 2017-08-04 10:00)
DX: K61.0 Anal abscess (principal); K61.3 Ischiorectal abscess; E11.9 Type 2 diabetes mellitus without complications; Z79.4 Long term (current) use of insulin; I10 Essential (primary) hypertension; E66.9 Obesity, unspecified; Z68.29 Body mass index [BMI] 29.0-29.9, adult; E78.5 Hyperlipidemia, unspecified; K21.9 Gastro-esophageal reflux disease without esophagitis; B95.61 Methicillin susceptible Staphylococcus aureus infection as the cause of diseases classified elsewhere; B96.20 Unspecified Escherichia coli [E. coli] as the cause of diseases classified elsewhere; B96.1 Klebsiella pneumoniae [K. pneumoniae] as the cause of diseases classified elsewhere
CPT/HCPCS: 36415; 72193-TC; 80053; 81003; 81015; 82947; 82962; 84703; 85025; 87070; 87077; 87186; 87205; 94760; 99284-25

== ENCOUNTER 2017-08-22 12:26 | Emergency (ER) | payer OTHER ==
[2017-08-22 12:30] VITALS: BMI 29.2
--- NOTE | 2017-08-22 13:47 | PDOC ---
History of Present Illness - General Chief Complaint: Pain Stated Complaint: LOWER PELVIC PAIN Time Seen by Provider: 08/22/17 13:00 History Source: Patient Exam Limitations: No Limitations - History of Present Illness Initial Comments: This is a 52 YOF with h/o recent perirectal abscess (admitted here at [facility], on abx at home), chlamydia (one year ago, was treated with antibiotic), IDDM, HTN, HLD, and asthma who presents c/o 3 days of intermittent squeezing lower abdominal pain radiating to the RUQ and right CVA, and generally worsening. She has taken Tylenol without relief and has never had this pain before. She additionally notes vaginal itching, chills, and decreased appetite, but denies any fever, nausea, vomiting, diarrhea, constipation, black/bloody/white stool, vaginal bleeding or discharge, headache, chest pain, SOB, or other symptoms. She has been taking Augmentin for her recent perirectal abscess (states she was supposed to take 2 antibiotics total but her pharmacy would only give her the Augmentin). She has been taking her insulin adherently, also takes metformin, and measures her blood sugars to be <200 most of the time. Past History - Past Medical History Allergies/Adverse Reactions: Allergies Allergy/AdvReac Type Severity Reaction Status Date / Time No Known Allergies Allergy Verified 08/22/17 12:30 Home Medications: Ambulatory Orders Albuterol Sulfate Inhaler - [Ventolin HFA Inhaler -] 2 inh PO Q4H PRN #0 inh Atorvastatin Ca [Lipitor] 40 mg PO HS #30 tab 05/12/17 Citalopram Hydrobromide [Celexa -] 10 mg PO DAILY #30 tab 05/12/17 Gabapentin [Neurontin -] 300 mg PO Q8H #90 cap 05/12/17 Pantoprazole Sodium [Protonix -] 40 mg PO DAILY #30 tab 05/12/17 Insulin Glargine,Hum.rec.anlog [Lantus] 0 unit SQ [facility] 08/03/17 Insulin Sliding Scale [Novolog Vial Sliding Scale -] 0 units SQ ACHS 08/03/17 Amox-Tr/K Cl [Augmentin 875-125mg Tablet -] 1 tab PO BID@0800,1730 #14 tablet Ciprofloxacin HCl [Cipro] 500 mg PO BID #14 tablet 08/22/17 Fluconazole 150 mg PO ONCE #1 tablet 08/22/17 Metronidazole [Flagyl -] 500 mg PO TID #21 tablet 08/22/17 COPD: No Diabetes: Yes HTN: Yes Hypercholesterolemia: Yes Kidney Stones: Yes - Family Disease History Family Disease History: Other: Sister (renal colic) - Suicide/Smoking/Psychosocial Hx Smoking History: Never smoked Have you smoked in the past 12 months: No Hx Alcohol Use: No Drug/Substance Use Hx: No Substance Use Type: None Hx Substance Use Treatment: No Review of Systems - Review of Systems Able to Perform ROS?: Yes Constitutional: Yes: Chills, Loss of Appetite. No: Fever, Unexplained wgt Loss HEENTM: No: Nose Congestion, Throat Pain Respiratory: No: Cough, Shortness of Breath Cardiac (ROS): No: Chest Pain, Palpitations ABD/GI: Yes: Other (abdominal pain). No: Constipated, Diarrhea, Nausea, Vomiting : Yes: Other (vaginal itching). No: Burning, Dysuria Musculoskeletal: Yes: Back Pain. No: Neck Pain Integumentary: No: Bruising, Rash Neurological: No: Headache, Numbness, Tingling, Weakness, Dizziness Endocrine: No: Unexplained Weight Gain, Unexplained Weight Loss *Physical Exam - Vital Signs Last Vital Signs Temp Pulse Resp BP Pulse Ox 97.8 F 83 18 176/89 99 08/22/17 12:28 08/22/17 12:28 08/22/17 12:28 08/22/17 12:28 08/22/17 12:28 ED Treatment Course - LABORATORY CBC & Chemistry Diagram: 08/22/17 14:00 08/22/17 14:00 Medical Decision Making - Medical Decision Making 52 YOF with recent admission and I&D for perirectal abscesses p/w lower abdominal pain. Taking one of the two antibiotics she was prescribed, also has vaginal itching. On exam VS wnl, patient in no distress, mild suprapubic ttp, mild RUQ ttp, otherwise wnl. DDX IBNLT pelvic floor infection, UTI/pyelo, appendicitis, diverticulitis, constipation, cholecystitis, etc. Ordered is CBCD CMP Cardiac panel UA Cx EKG CXR CT Ab/Pe with IV contrast, Ofirmev. 08/22/17 17:[address] abdomen she has e/o diverticulitis. Ordered is cipro/flagyl, but pharmacy states cipro is restricted to ID. Levaquin is ordered instead and given. Fluconazole ordered as well for empiric tx of vaginal candidiasis. *DC/Admit/Observation/Transfer Diagnosis at time of Disposition: Diverticulitis, Vaginal elena UTI (urinary tract infection) Qualifiers: Urinary tract infection type: acute cystitis Hematuria presence: without hematuria Qualified Code(s): N30.00 - Acute cystitis without hematuria - Discharge Dispostion Disposition: HOME Condition at time of disposition: Stable Admit: No - Prescriptions Prescriptions: Ciprofloxacin HCl [Cipro] 500 mg PO BID #14 tablet Fluconazole 150 mg PO ONCE #1 tablet Metronidazole [Flagyl -] 500 mg PO TID #21 tablet - Referrals Referrals: Yohannes Baumann MD [Primary Care Provider] - - Patient Instructions Printed Discharge Instructions: DI for Diverticulitis Additional Instructions: Haz visto en la gregoria de emergencias por dolor del abdomen. Hicimos unos laboratorios de kali y de la orina, y tambien hector placa del pecho, hector electrocardiograma, y hector tomografia computadora del abdomen. Tiene hector infeccion del intestino que se llama diverticulitis. Mandamos unas recetas electronicas a ozuna farmacia - son antibioticos. Por favor naz los dos corsos completos de antibioticos (ciprofloxacin y metronidazole). Tambien por favor naz el fluconazole en 25-08-17. Haz hector skyler con ozuna doctor primario o regrese a la gregoria de emergencias si tiene alguna sintoma nueva o que empeora. Print Language: TELUGU - Post Discharge Activity
[2017-08-22] MEDS ORDERED: SODIUM CHLORIDE 1,000 ML IV STA (13:53)
[2017-08-22] MEDS ORDERED: ACETAMINOPHEN 1000 MG/100 ML VIAL (NON FORMULARY) IVPB ONE (13:53)
--- NOTE | 2017-08-22 13:55 | PDOC ---
Attending Attestation - Medical Decision Making 08/22/17 13:56 Documentation prepared by Ramandeep Leon, acting as medical data entry clerk for Darrian Berry MD. EXAM: CT Abdomen and Pelvis INTERPRETED BY: Dr. Larsen REVIEWED BY: Dr. Berry IMPRESSION: 1. Findings consistent with acute diverticulitis of the proximal descending colon without abscess formation. 2. Diffuse fatty infiltration of the liver. 3. Resolution of perianal inflammation since 08/03/2017. Please see above discussion. <Ramandeep Leon - Last Filed: 08/22/17 16:40> - Resident Resident Name: Heidi Lynn - ED Attending Attestation I have performed the following: I have examined & evaluated the patient, The case was reviewed & discussed with the resident, I agree w/resident's findings & plan, Exceptions are as noted - HPI HPI: 08/22/17 17:34 The patient is a 52 year old female, with a significant past medical history of recent perirectal abscess (admitted here at [facility], and discharged home with abx) , chlamydia (one year ago, was treated with antibiotic), IDDM, HTN, HLD, and asthma, who presents to the emergency department with abdominal pain for approximately 3 days. The patient reports her pain is localized suprapubically and to her bilateral lower abdomen. She describes her pain as a twisting pain, which has been worsening over the past 3 days. She reports decreased appetite since yesterday, but denies any associated nausea, vomiting, diarrhea, or constipation. She reports mild vaginal itching but denies any vaginal discharge , dysuria, hematuria, frequency, or urgency. She reports chills, but denies any fever, headache, or dizziness. - Physicial Exam PE: 08/22/17 17:34 GENERAL: Awake, alert, and fully oriented, in no acute distress HEAD: No signs of trauma EYES: PERRLA, EOMI, sclera anicteric, conjunctiva clear ENT: Auricles normal inspection, hearing grossly normal, nares patent, oropharynx clear without exudates. Moist mucosa NECK: Normal ROM, supple, no lymphadenopathy, JVD, or masses LUNGS: Breath sounds equal, clear to auscultation bilaterally. No wheezes, and no crackles HEART: Regular rate and rhythm, normal S1 and S2, no murmurs, rubs or gallops ABDOMEN: Bilateral lower abdomen tenderness. Suprapubic tenderness. No upper abd ttp, neg tobin's sign. Soft, normoactive bowel sounds. No guarding, no rebound. No masses EXTREMITIES: Normal range of motion, no edema. No clubbing or cyanosis. No cords, erythema, or tenderness BACK: No midline spinal tenderness in cervical/thoracic/lumbar region NEUROLOGICAL: Normal speech, cranial nerves intact, negative pronator drift, 5/ 5 strength in all 4 extremities, normal sensation to light touch in all 4 extremities, normal cerebellar exam, normal gait, normal reflexes and tone SKIN: Warm, Dry, normal turgor, no rashes or lesions noted. - Medical Decision Making 08/22/17 14:03 52-year-old female with a history of recent perirectal abscess status post OR drainage, currently on Augmentin presents with lower abdominal pain as well as right upper quadrant pain. Vitals remarkable for elevated blood pressure, otherwise within normal limits. Exam with diffuse abdominal tenderness, worse in the right upper quadrant and left lower quadrant. Differential is wide and includes but is not limited to acute cholecystitis versus diverticulitis versus colitis versus includes otitis versus UTI versus recurrent perirectal abscess. We'll obtain labs, urinalysis, ultrasound and CT abdomen and pelvis for evaluation. Patient currently declines pain medication. 08/22/17 17:34 Labs unremarkable. Urinalysis consistent with likely UTI. In addition, CT abdomen and pelvis reveals acute uncomplicated diverticulitis or proximal descending colon. Will give Cipro/Flagyl, and discharged patient with outpatient primary care follow-up. I discussed the physical exam findings, ancillary test results and final diagnoses with the patient. I answered all of the patient's questions. The patient was satisfied with the care received and felt comfortable with the discharge plan and treatment plan. The patient will call their primary care physician within 24 hours to arrange follow-up and will return to the Emergency Department with any new, persistent or worsening symptoms. <Darrian Berry - Last Filed: 08/22/17 17:36>
[2017-08-22] MEDS ORDERED: ACETAMINOPHEN INJECTION 100 ML IVPB ONE (13:58)
[2017-08-22 14:01] LABS: URINE APPEARANCE CLOUDY; URINE BILIRUBIN NEGATIVE (NEGATIVE); URINE BLOOD NEGATIVE (NEGATIVE); URINE COLOR YELLOW; URINE GLUCOSE (UA) 3+ (NEGATIVE); URINE KETONE NEGATIVE (NEGATIVE); URINE NITRITE NEGATIVE (NEGATIVE); URINE UROBILINOGEN NEGATIVE mg/dL (0.2-1.0)
[2017-08-22 14:11] LABS: URINE LEUK ESTERASE 2+ (NEGATIVE); URINE PROTEIN 1+ (NEGATIVE)
[2017-08-22 14:13] LABS: BASO % 0.8 % (0-2.0); EOS % 4.8 % (0-4.5); HEMATOCRIT 38.5 % (32.4-45.2); HEMOGLOBIN 12.7 GM/dL (10.7-15.3); LYMPH % 27.5 % (8-40); MCH 27.6 pg (25.7-33.7); MCHC 32.9 g/dl (32.0-36.0); MEAN CELL VOLUME 83.9 fl (80-96); MEAN PLT VOLUME 7.1 fl (7.5-11.1); NEUT % 59.9 % (42.8-82.8); PLATELET COUNT 256 K/MM3 (134-434); RBC 4.59 M/mm3 (3.60-5.2); RDW 13.6 % (11.6-15.6); WHITE BLOOD COUNT 8.2 K/mm3 (4.0-10.0)
[2017-08-22 14:14] LABS: EPI CELLS MANY /HPF (FEW); URINE BACTERIA FEW /hpf (NONE SEEN); URINE MUCUS RARE
[2017-08-22 14:40] LABS: ALBUMIN 3.5 g/dl (3.4-5.0); ALK PHOS 105 U/L (45-117); ANION GAP 10 (8-16); BILIRUBIN,TOTAL 0.3 mg/dL (0.2-1.0); BLOOD UREA NITROGEN 12 mg/dL (7-18); CALCIUM 9.3 mg/dL (8.5-10.1); CHLORIDE 99 mmol/L (98-107); CO2 30 mmol/L (21-32); CREATININE 0.9 mg/dL (0.55-1.02); GLUCOSE,RANDOM 266 mg/dL (74-106); POTASSIUM 4.1 mmol/L (3.5-5.1); SGOT/AST 12 U/L (15-37); SGPT/ALT 22 U/L (12-78); SODIUM 139 mmol/L (136-145); TOT PROT 7.7 g/dl (6.4-8.2)
[2017-08-22 14:44] LABS: LIPASE 341 U/L (73-393)
[2017-08-22 16:41] VITALS: PULSE 74; TEMP 98.5
[2017-08-22] MEDS ORDERED: CIPROFLOXACIN 500 MG TABLET (RESTRICTED TO ID) PO ONE (16:46)
[2017-08-22] MEDS ORDERED: metroNIDAZOLE 250 MG TABLET PO ONE (16:46)
[2017-08-22] MEDS ORDERED: METOCLOPRAMIDE HCL INJECTION 10 MG/2 ML VIAL ONE (16:46)
[2017-08-22] MEDS ORDERED: METOCLOPRAMIDE HCL 10 MG TABLET (FP) PO ONE ×2 (16:47→16:53)
[2017-08-22] MEDS ORDERED: FLUCONAZOLE 50 MG TABLET PO ONE (16:49)
[2017-08-22] MEDS ORDERED: FLUCONAZOLE 100 MG TABLET (UD) ONE (16:52)
[2017-08-22] MEDS ORDERED: metroNIDAZOLE 250 MG TABLET ONE (16:52)
[2017-08-22] MEDS ORDERED: LEVOFLOXACIN 500 MG TABLET (FP) ONE (16:55)
[2017-08-22] MEDS ORDERED: LEVOFLOXACIN 250 MG TABLET (FP) PO ONE (17:09)
[2017-08-22] MEDS ORDERED: LEVOFLOXACIN 250 MG TABLET (FP) ONE (17:11)
[2017-08-22 18:21] VITALS: BP 137/78
--- NOTE | 2017-08-23 11:41 | EKG ---
Test Reason : Blood Pressure : / mmHG Vent. Rate : 078 BPM Atrial Rate : 078 BPM P-R Int : 148 ms QRS Dur : 070 ms QT Int : 354 ms P-R-T Axes : 034 014 048 degrees QTc Int : 403 ms NORMAL SINUS RHYTHM NONSPECIFIC T WAVE ABNORMALITY ABNORMAL ECG Confirmed by MD MONICA, JONA ([id number]) on 08/23/2017 11:40:43 AM Referred By: Confirmed By:JONA ANDERSON MD
== END 2017-08-22 18:20 | disposition home or self-care (01) ==
LOC: JER 12:26
PROC: 3E033NZ Introduction of Analgesics, Hypnotics, Sedatives into Peripheral Vein, Percutaneous Approach (ICD-10-PCS; principal; 2017-08-22)
DX: K57.92 Diverticulitis of intestine, part unspecified, without perforation or abscess without bleeding (principal); B37.3 Candidiasis of vulva and vagina; N30.00 Acute cystitis without hematuria
CPT/HCPCS: 36415; 74177-TC; 80053; 81003; 81015; 83690; 85025; 93005; 93010; 96374; 99283-25

== ENCOUNTER 2017-12-28 13:42 | Emergency (ER) | payer OTHER ==
[2017-12-28 13:58] VITALS: BP 149/82; PULSE 88; TEMP 98; BMI 29.0
--- NOTE | 2017-12-28 14:48 | PDOC ---
History of Present Illness - General Chief Complaint: Pain Stated Complaint: LT HIP/ LEG PAIN Time Seen by Provider: 12/28/17 14:25 - History of Present Illness Initial Comments: 52-year-old female with past medical history significant for diabetes, hypertension and dyslipidemia presents for evaluation of left-sided arm and neck pain as well as left sided leg and back pain. She states her symptoms been going on for 3 days. They're not associated with any loss of bowel or bladder function fever chills night sweats nausea vomiting or headaches. Pain is described as achy exacerbated with activity relieved with rest and with the above-mentioned radiation. 12/28/17 14:43 Past History - Past Medical History Allergies/Adverse Reactions: Allergies Allergy/AdvReac Type Severity Reaction Status Date / Time No Known Allergies Allergy Verified 12/28/17 13:55 Home Medications: Ambulatory Orders Insulin Glargine,Hum.rec.anlog [Lantus] 0 unit SQ ASDIR 08/03/17 Insulin Sliding Scale [Novolog Vial Sliding Scale -] 0 units SQ ACHS 08/03/17 Cyclobenzaprine HCl [Flexeril 10 mg] 10 mg PO HS PRN #10 tablet 12/28/17 Methylprednisolone [Medrol Dose Geronimo] 4 mg PO ASDIR #21 tablet 12/28/17 COPD: No Diabetes: Yes HTN: Yes Hypercholesterolemia: Yes Kidney Stones: Yes - Family Disease History Family Disease History: Other: Sister (renal colic) - Suicide/Smoking/Psychosocial Hx Smoking History: Never smoked Have you smoked in the past 12 months: No Hx Alcohol Use: No Drug/Substance Use Hx: No Substance Use Type: None Hx Substance Use Treatment: No Review of Systems - Review of Systems Musculoskeletal: Yes: See HPI, Back Pain, Neck Pain All Other Systems: Reviewed and Negative *Physical Exam - Vital Signs Last Vital Signs Temp Pulse Resp BP Pulse Ox 98 F 88 19 149/82 99 12/28/17 13:55 12/28/17 13:55 12/28/17 13:55 12/28/17 13:55 12/28/17 13:55 - Physical Exam Comments: Cervical spine skin color and temperature is within normal limits she has mild left-sided paracervical musculature spasm decreased range of motion. Pain with range of motion. She has 5 out of 5 strength in bilateral upper extremities. She has a positive Spurling maneuver on the left negative on the right. She has no gross sensorimotor deficits she's neurovascularly intact. Lumbar spine skin color and temperature are normal. She has decreased range of motion with pain. 5 out of 5 strength bilateral lower extremities including plantar flexion dorsiflexion EHL and hip flexion. She has a positive straight leg raise test on the left negative on the right. No gross sensorimotor deficits she's neurovascularly intact. 12/28/17 14:44 Medical Decision Making - Medical Decision Making This is cervical and lumbar radiculopathy. I'll prescribed to her Medrol Dosepak and advised her to monitor her sugar. She does check her blood sugar at home and does take home insulin and she can adjust her dose accordingly. Also prescribed her Flexeril. Give her follow-up with spine surgery. 12/28/17 14:45 *DC/Admit/Observation/Transfer Diagnosis at time of Disposition: Cervical radiculopathy, Lumbar radiculopathy, Diabetes 1.5, managed as type 1 - Discharge Dispostion Disposition: HOME Condition at time of disposition: Stable Decision to Admit order: No - Referrals Referrals: Nathan Anderson MD [Primary Care Provider] - Dimas Garza MD [Staff Physician] - - Patient Instructions Printed Discharge Instructions: DI for Cervical Radiculopathy, Lumbar Radiculopathy, DI for Lumbar Radiculopathy Additional Instructions: Please be sure to check her blood sugar frequently as the pain medication I've given T was going to raise her blood sugar. Adjust her insulin dose accordingly. I've also prescribed a muscle relaxer which will help you sleep better at night this is one pill before bedtime. Return to the emergency room if her symptoms worsen or go unresolved prior to follow-up. It's important few to follow-up with spine surgery in the next 1-2 days. We will give you further evaluation and treatment options. - Post Discharge Activity
== END 2017-12-28 14:56 | disposition home or self-care (01) ==
LOC: JERFT 13:42
DX: M54.12 Radiculopathy, cervical region (principal); M54.16 Radiculopathy, lumbar region; I10 Essential (primary) hypertension; E78.5 Hyperlipidemia, unspecified; E10.9 Type 1 diabetes mellitus without complications; Z79.4 Long term (current) use of insulin
CPT/HCPCS: 99281-25

== ENCOUNTER 2018-04-20 16:20 | Emergency (ER) | payer OTHER ==
--- NOTE | 2018-04-20 17:19 | PDOC ---
Rapid Medical Evaluation Time Seen by Provider: 04/20/18 17:16 Medical Evaluation: Allergies Allergy/AdvReac Type Severity Reaction Status Date / Time No Known Allergies Allergy Verified 12/28/17 13:55 04/20/18 17:16 Pt presents to the ED with headache. States she also has high blood pressure and high sugars. Did not try any OTC medication. Admits to nausea Exam: No gross neuro findings Orders: IV, Labs, urine Pt to proceed to ED for further evaluation Discharge Disposition - Diagnosis Headache - Referrals Referrals: Nathan Anderson MD [Primary Care Provider] - - Patient Instructions - Post Discharge Activity
[2018-04-20 17:22] VITALS: TEMP 98.4; BMI 29.2
[2018-04-20] MEDS ORDERED: SODIUM CHLORIDE 1,000 ML IV STA (18:17)
[2018-04-20] MEDS ORDERED: METOCLOPRAMIDE HCL INJECTION 10 MG/2 ML VIAL IVPUSH ONE (18:17)
--- NOTE | 2018-04-20 18:25 | PDOC ---
History of Present Illness - General Chief Complaint: Blood Sugar Problem Stated Complaint: HEADACHE, NAUSEA, HYPERTENSION Time Seen by Provider: 04/20/18 17:16 History Source: Patient Exam Limitations: No Limitations - History of Present Illness Initial Comments: 04/20/18 18:19 Patient is a 53F with history of HTN, DM, nephrolithiasis here today complaining of high blood pressure readings at home and high blood sugar readings at home. She states that her bp at home was 187/90 and her blood sugar was measured as an 'error'. She reports headache, nausea, and a short episode of chest pain last night that has since resolved. Denies fevers, endorses chills. Denies vomiting. Denies dysuria, endorses frequency. Patient endorses compliance with her insulin regimen. Past History - Past Medical History Allergies/Adverse Reactions: Allergies Allergy/AdvReac Type Severity Reaction Status Date / Time No Known Allergies Allergy Verified 04/20/18 17:18 Home Medications: Ambulatory Orders Insulin Glargine,Hum.rec.anlog [Lantus] 50 unit SQ HS 08/03/17 Cephalexin Monohydrate [Keflex -] 500 mg PO BID #10 capsule 04/20/18 Insulin Lispro [Humalog] 100 unit SQ ASDIR 04/20/18 Losartan/Hydrochlorothiazide [Losartan-Hctz 100-25 mg Tab] 1 each PO DAILY 04/20 COPD: No Diabetes: Yes (on insulin) HTN: Yes Hypercholesterolemia: Yes Kidney Stones: Yes - Family Disease History Family Disease History: Other: Sister (renal colic) - Suicide/Smoking/Psychosocial Hx Smoking History: Never smoked Have you smoked in the past 12 months: No Hx Alcohol Use: No Drug/Substance Use Hx: No Substance Use Type: None Hx Substance Use Treatment: No Review of Systems - Review of Systems Able to Perform ROS?: Yes Comments:: 04/20/18 18:23 GENERAL/CONSTITUTIONAL: No fever or chills. No weakness. HEAD, EYES, EARS, NOSE AND THROAT: No change in vision. No sore throat. CARDIOVASCULAR: +chest pain no shortness of breath RESPIRATORY: No cough, wheezing, or hemoptysis. GASTROINTESTINAL: +nausea, no vomiting, diarrhea or constipation. GENITOURINARY: No dysuria, frequency, or change in urination. MUSCULOSKELETAL: No joint or muscle swelling or pain. No neck or back pain. SKIN: No rash NEUROLOGIC: No headache, vertigo, loss of consciousness, or change in strength/ sensation. ENDOCRINE: No increased thirst. No abnormal weight change HEMATOLOGIC/LYMPHATIC: No anemia, easy bleeding, or history of blood clots. ALLERGIC/IMMUNOLOGIC: No hives or skin allergy. *Physical Exam - Vital Signs Last Vital Signs Temp Pulse Resp BP Pulse Ox 98.4 F 85 16 167/77 99 04/20/18 17:18 04/20/18 17:18 04/20/18 17:18 04/20/18 17:18 04/20/18 17:18 - Physical Exam Comments: 04/20/18 18:23 GENERAL: Awake, alert, and fully oriented, in no acute distress HEAD: No signs of trauma, normocephalic, atraumatic EYES: PERRLA, EOMI, sclera anicteric, conjunctiva clear ENT: Auricles normal inspection, hearing grossly normal, nares patent, oropharynx clear without exudates. Moist mucosa NECK: Normal ROM, supple, no lymphadenopathy, JVD, or masses LUNGS: No distress, speaks full sentences, clear to auscultation bilaterally HEART: Regular rate and rhythm, normal S1 and S2, no murmurs, rubs or gallops, peripheral pulses normal and equal bilaterally. ABDOMEN: Soft, nontender, normoactive bowel sounds. No guarding, no rebound. No masses EXTREMITIES: Normal inspection, Normal range of motion, no edema. No clubbing or cyanosis. NEUROLOGICAL: Cranial nerves II through XII grossly intact. Normal speech, normal gait, no focal sensorimotor deficits SKIN: Warm, Dry, normal turgor, no rashes or lesions noted. ED Treatment Course - LABORATORY CBC & Chemistry Diagram: 04/20/18 18:30 04/20/18 18:30 Medical Decision Making - Medical Decision Making 04/20/18 18:25 Patient is 53F with history of HTN, IDDM, nephrolithiasis here today with nausea , headache. Vitals stable, but mildly hypertensive. DDx includes, but is not limited to: DKA, HHS, UTI. Will evaluate with cbc, cmp, trop, pt/inr, ekg, vbg, ua/uc, bc. Will treat with fluids and reglan. 04/20/18 19:53 Laboratory Tests 04/20/18 04/20/1804/20/18 18:00 18:30 18:30 WBC 9.9 Hgb 13.2 Plt Count 291 VBG pH 7.39 BUN 17 Creatinine 1.8 H Ur Leukocyte Esterase Urine WBC (Auto) Urine Bacteria Urine HCG, Qual 04/20/18 18:36 WBC Hgb Plt Count VBG pH BUN Creatinine Ur Leukocyte Esterase Trace Urine WBC (Auto) 11 Urine Bacteria Many Urine HCG, Qual Negative CBC normal. CMP reassuring, 1.8 Cr 17 BUN, off baseline. UA+ for infection. Pending trop/acetone. Glucose normal. 04/20/18 20:21 Acetone/trop neg. Will discharge with keflex. Patient feels improved. Will follow up with PCP. *DC/Admit/Observation/Transfer Diagnosis at time of Disposition: UTI (urinary tract infection) - Discharge Dispostion Disposition: HOME Condition at time of disposition: Good Decision to Admit order: No - Prescriptions Prescriptions: Cephalexin Monohydrate [Keflex -] 500 mg PO BID #10 capsule - Referrals Referrals: Nathan Anderson MD [Primary Care Provider] - - Patient Instructions Printed Discharge Instructions: DI for Urinary Tract Infection (UTI) Additional Instructions: Por favor regrese si tiene algn sntoma nuevo, que empeore o que est relacionado con sntomas, especialmente fiebre, confusin y dolor creciente. Por favor, shawna un seguimiento con ozuna mdico de atencin primaria sobre ozuna nivel elevado de creatinina. Print Language: SOU[place] - Post Discharge Activity
[2018-04-20] MEDS ORDERED: METOCLOPRAMIDE HCL INJECTION 10 MG/2 ML VIAL ONE (18:48)
[2018-04-20 18:54] LABS: BASO % 0.8 % (0-2.0); EOS % 3.2 % (0-4.5); HEMATOCRIT 39.1 % (32.4-45.2); HEMOGLOBIN 13.2 GM/dL (10.7-15.3); LYMPH % 27.7 % (8-40); MCH 28.5 pg (25.7-33.7); MCHC 33.8 g/dl (32.0-36.0); MEAN CELL VOLUME 84.2 fl (80-96); MEAN PLT VOLUME 7.6 fl (7.5-11.1); MONO % 7.1 % (3.8-10.2); NEUT % 61.2 % (42.8-82.8); PLATELET COUNT 291 K/MM3 (134-434); RBC 4.64 M/mm3 (3.60-5.2); RDW 13.4 % (11.6-15.6); WHITE BLOOD COUNT 9.9 K/mm3 (4.0-10.0)
[2018-04-20 18:56] LABS: VENOUS PC02 50.8 mmHg (38-52); VENOUS PH 7.39 (7.32-7.42); VENOUS PO2 43.3 mmHg (28-48)
[2018-04-20 19:07] LABS: URINE APPEARANCE CLEAR; URINE BILIRUBIN NEGATIVE (<2.0 mg/dL); URINE COLOR LTYELLOW; URINE GLUCOSE (UA) NEGATIVE (NEGATIVE); URINE KETONE NEGATIVE (NEGATIVE); URINE LEUK ESTERASE TRACE (NEGATIVE); URINE NITRITE NEGATIVE (NEGATIVE); URINE PROTEIN NEGATIVE (NEGATIVE); URINE UROBILINOGEN NEGATIVE mg/dL (0.2-1.0)
[2018-04-20 19:10] LABS: HCG,QUALITATIVE URINE Negative
[2018-04-20 19:23] LABS: ALBUMIN 3.8 g/dl (3.4-5.0); ALK PHOS 91 U/L (45-117); ANION GAP 9 MMOL/L (8-16); BILIRUBIN,TOTAL 0.2 mg/dL (0.2-1); BLOOD UREA NITROGEN 17 mg/dL (7-18); CALCIUM 9.7 mg/dL (8.5-10.1); CHLORIDE 102 mmol/L (98-107); CO2 30 mmol/L (21-32); CREATININE 1.8 mg/dL (0.55-1.3); GLUCOSE,RANDOM 104 mg/dL (74-106); POTASSIUM 3.9 mmol/L (3.5-5.1); SGOT/AST 12 U/L (15-37); SGPT/ALT 21 U/L (13-61); SODIUM 141 mmol/L (136-145); TOT PROT 7.6 g/dl (6.4-8.2)
[2018-04-20 19:37] LABS: EPI CELLS RARE /HPF (FEW); URINE BACTERIA MANY /hpf (NONE SEEN)
[2018-04-20] MEDS ORDERED: CEPHALEXIN MONOHYDRATE 500 MG CAPSULE (UD) PO ONE (20:19)
--- NOTE | 2018-04-20 20:25 | PDOC ---
Attending Attestation - Resident Resident Name: Dandre Duval - ED Attending Attestation I have performed the following: I have examined & evaluated the patient, The case was reviewed & discussed with the resident, I agree w/resident's findings & plan, Exceptions are as noted - HPI HPI: 04/20/18 20:25 53 yo female p/w general malaise and concern for elevated blood glucose because at home her glucometer reads "E" and she felt it meant her glucose was high 04/20/18 22:28 - Physicial Exam PE: 04/20/18 22:27 53 yo female in no acute distress head ncat neck supple lungs cta b/l cvs [id number] abd nontender ext no edema skin warm and dry no cva tenderness neuro axox3,ambulatory,no gross focal neuro deficits paych appropriate - Medical Decision Making 04/20/18 22:29 labs were reviewed and unremarkable pt discharged home imp her glucometer is not working
[2018-04-20] MEDS ORDERED: CEPHALEXIN MONOHYDRATE 500 MG CAPSULE (UD) ONE (20:29)
[2018-04-20 20:40] VITALS: BP 134/65; PULSE 82
--- NOTE | 2018-04-21 13:22 | EKG ---
Test Reason : Blood Pressure : / mmHG Vent. Rate : 084 BPM Atrial Rate : 084 BPM P-R Int : 142 ms QRS Dur : 072 ms QT Int : 326 ms P-R-T Axes : 048 028 102 degrees QTc Int : 385 ms NORMAL SINUS RHYTHM NONSPECIFIC T WAVE ABNORMALITY ABNORMAL ECG WHEN COMPARED WITH ECG OF 22-AUG-2017 14:26, NONSPECIFIC T WAVE ABNORMALITY NOW EVIDENT IN ANTERIOR LEADS Confirmed by GENNA ZAVALA, GALO ([id number]) on 04/21/2018 1:22:12 PM Referred By: Confirmed By:GALO VAIL MD
== END 2018-04-20 20:40 | disposition home or self-care (01) ==
LOC: JER 16:20
PROC: 3E033GC Introduction of Other Therapeutic Substance into Peripheral Vein, Percutaneous Approach (ICD-10-PCS; principal; 2018-04-20)
DX: N39.0 Urinary tract infection, site not specified (principal); I10 Essential (primary) hypertension; E11.65 Type 2 diabetes mellitus with hyperglycemia; Z79.4 Long term (current) use of insulin
CPT/HCPCS: 36415; 71045-TC-FY; 80053; 81003; 81015; 82009; 82550; 82803; 84484; 84703; 85025; 87040; 87086; 87186; 93005; 93010; 96374; 99285-25; J7030

== ENCOUNTER 2019-01-21 11:48 | Emergency (ER) | payer OTHER ==
[2019-01-21 12:08] VITALS: BP 176/73; PULSE 73; TEMP 98.6; BMI 30.5
--- NOTE | 2019-01-21 13:08 | PDOC ---
History of Present Illness - General Chief Complaint: Edema Stated Complaint: SWOLLEN FEET/RASH Time Seen by Provider: 01/21/19 12:12 History Source: Patient Exam Limitations: No Limitations - History of Present Illness Initial Comments: 01/21/19 13:08 53-year-old female with history of hypertension diabetes and dyslipidemia presents to the ED for evaluation of bilateral foot swelling since Thursday. The patient states was this past Thursday was wearing heels were slightly tight and was dancing throughout the night. Patient states the swelling has subsided slightly but decided to come to the ER today since symptoms still are noted. Patient has no other complaints at this time. Timing/Duration: changing over time Severity: mild Associated Symptoms: reports: denies symptoms Past History - Travel Traveled outside of the country in the last 30 days: No Close contact w/someone who was outside of country & ill: No - Past Medical History Allergies/Adverse Reactions: Allergies Allergy/AdvReac Type Severity Reaction Status Date / Time No Known Allergies Allergy Verified 01/21/19 12:01 Home Medications: Ambulatory Orders Insulin Glargine,Hum.rec.anlog [Lantus] 50 unit SQ HS 08/03/17 Cephalexin Monohydrate [Keflex -] 500 mg PO BID #10 capsule 04/20/18 Insulin Lispro [Humalog] 100 unit SQ ASDIR 04/20/18 Losartan/Hydrochlorothiazide [Losartan-Hctz 100-25 mg Tab] 1 each PO DAILY 04/20 Cephalexin [Keflex] 500 mg PO BID #14 capsule 01/21/19 COPD: No Diabetes: Yes (on insulin) HTN: Yes Hypercholesterolemia: Yes Kidney Stones: Yes - Family Disease History Family Disease History: Other: Sister (renal colic) - Suicide/Smoking/Psychosocial Hx Smoking History: Never smoked Have you smoked in the past 12 months: No Information on smoking cessation initiated: No Hx Alcohol Use: No Drug/Substance Use Hx: No Substance Use Type: None Hx Substance Use Treatment: No Patient Lives Alone: No Lives with/in: spouse/SO Review of Systems - Review of Systems Able to Perform ROS?: Yes Is the patient limited [place] Citizen proficient: Yes Constitutional: No: Symptoms Reported HEENTM: No: Symptoms Reported Respiratory: No: Symptoms reported Cardiac (ROS): Yes: Edema ABD/GI: No: Symptoms Reported : No: Symptoms Reported Musculoskeletal: No: Symptoms Reported Neurological: No: Symptoms reported Endocrine: No: Symptoms Reported Hematologic/Lymphatic: No: Symptoms Reported *Physical Exam - Vital Signs Last Vital Signs Temp Pulse Resp BP Pulse Ox 98.6 F 73 16 176/73 H 99 01/21/19 12:01 01/21/19 12:01 01/21/19 12:01 01/21/19 12:01 01/21/19 12:01 - Physical Exam General Appearance: Yes: Nourished, Appropriately Dressed. No: Apparent Distress HEENT: negative: Pale Conjunctivae Respiratory/Chest: positive: Lungs Clear, Normal Breath Sounds. negative: Respiratory Distress, Accessory Muscle Use Cardiovascular: positive: Regular Rhythm, Regular Rate. negative: Murmur Vascular Pulses: Dorsalis-Pedis (R): 2+, Doralis-Pedis (L): 2+ Extremity: positive: Normal Capillary Refill, Normal Range of Motion, Pedal Edema (pitting 1-2+ bilateral to the dorsal aspects) Integumentary: positive: Normal Color, Warm, Moist Neurologic: positive: Motor Strength 5/5 (ambulatory) ED Treatment Course - LABORATORY CBC & Chemistry Diagram: 01/21/19 13:00 01/21/19 12:21 Medical Decision Making - Medical Decision Making 01/21/19 13:01 Chief complaint :Bilateral foot swelling decreasing in size since Thursday. Patient history of diabetes hypertension and dyslipidemia no other complaints at this time Exam: 1-2+ pitting edema to bilateral feet dorsally Plan: labs and urine ordered 01/21/19 14:09 Laboratory Tests 01/21/19 01/21/19 01/21/19 12:21 13:00 13:03 WBC 7.5 Hgb 12.4 Hct 36.4 Plt Count 234 Sodium 140 Potassium 3.9 Chloride 104 Carbon Dioxide 28 Anion Gap 8 BUN 12.7 Creatinine 1.0 Est GFR (CKD-EPI)AfAm 74.49 Est GFR (CKD-EPI)NonAf 64.27 Random Glucose 225 H Calcium 9.2 Magnesium 2.1 Total Bilirubin 0.4 AST 13 L ALT 27 Alkaline Phosphatase 99 Urine Color Yellow Urine Appearance Clear Urine pH 5.5 Ur Specific Beemer 1.020 Urine Protein Negative Urine Bilirubin Negative Ur Leukocyte Esterase 1+ H Urine WBC (Auto) 46 Urine Casts (Auto) 5 U Pathogenic Cast Auto No Result Required. Urine Crystals (Auto) No Result Required. Urine Bacteria (Auto) 184.4 01/21/19 14:17 Patient complains of dysuria. Urine culture will be sent. Otherwise patient may be discharged home with recommendations to avoid salt and elevate her extremities 01/21/19 14:18 *DC/Admit/Observation/Transfer Diagnosis at time of Disposition: UTI (urinary tract infection), Pedal edema - Discharge Dispostion Disposition: HOME Condition at time of disposition: Good - Referrals Referrals: Nathan Anderson MD [Primary Care Provider] - - Patient Instructions Additional Instructions: Decrease your salt intake for the next 48 hours. Elevate your feet higher than your heart when not walking around Take antibiotics as prescribed. Drink plenty of fluids. - Post Discharge Activity
[2019-01-21 13:25] LABS: BASO % 1.1 % (0-2.0); EOS % 3.2 % (0-4.5); HEMATOCRIT 36.4 % (32.4-45.2); HEMOGLOBIN 12.4 GM/dL (10.7-15.3); LYMPH % 29.4 % (8-40); MEAN CELL VOLUME 85.5 fl (80-96); MEAN PLT VOLUME 7.8 fl (7.5-11.1); MONO % 6.6 % (3.8-10.2); NEUT % 59.7 % (42.8-82.8); PLATELET COUNT 234 K/MM3 (134-434); RBC 4.26 M/mm3 (3.60-5.2); RDW 14.1 % (11.6-15.6); WHITE BLOOD COUNT 7.5 K/mm3 (4.0-10.0)
[2019-01-21 13:31] LABS: EPI CELLS 2.5 /HPF (0-5/HPF); HYALINE CASTS 5 /lpf (0-8); PH,URINE 5.5 (5.0-8.0); URINE APPEARANCE CLEAR; URINE BACTERIA 184.4 /hpf (NEGATIVE); URINE BILIRUBIN NEGATIVE (NEGATIVE); URINE COLOR YELLOW; URINE GLUCOSE (UA) 3+ (NEGATIVE); URINE KETONE NEGATIVE (NEGATIVE); URINE LEUK ESTERASE 1+ (NEGATIVE); URINE NITRITE NEGATIVE (NEGATIVE); URINE PROTEIN NEGATIVE (NEGATIVE); URINE RBC 4 /hpf (0-4); URINE UROBILINOGEN 0.2 mg/dL (0.2-1.0); URINE WBC 46 /hpf (0-5)
[2019-01-21 13:57] LABS: ALBUMIN 3.9 g/dl (3.4-5.0); BILIRUBIN,TOTAL 0.4 mg/dL (0.2-1); BLOOD UREA NITROGEN 12.7 mg/dL (7-18); CALCIUM 9.2 mg/dL (8.5-10.1); MAGNESIUM 2.1 mg/dL (1.8-2.4); POTASSIUM 3.9 mmol/L (3.5-5.1); TOT PROT 7.2 g/dl (6.4-8.2)
== END 2019-01-21 15:13 | disposition home or self-care (01) ==
LOC: JER 11:48
DX: N39.0 Urinary tract infection, site not specified (principal); R60.0 Localized edema; I10 Essential (primary) hypertension; E78.00 Pure hypercholesterolemia, unspecified; E11.9 Type 2 diabetes mellitus without complications; Z79.4 Long term (current) use of insulin
CPT/HCPCS: 36415; 80053; 81003; 83735; 85025; 99281-25

== ENCOUNTER 2019-04-11 12:55 | Emergency (ER) | payer OTHER | END 2019-04-11 19:03 | disposition home or self-care (01) | LOC: JER 12:55 ==

== ENCOUNTER 2019-06-07 08:27 | Emergency (ER) | payer OTHER ==
[2019-06-07 08:53] VITALS: BMI 30.5
--- NOTE | 2019-06-07 09:23 | PDOC ---
History of Present Illness - General History Source: Patient Exam Limitations: Clinical Condition - History of Present Illness Initial Comments: 06/07/19 09:17 Patient with history of insulin-dependent diabetes presented with complaint of sudden onset of swelling to dorsal aspect of bilateral hand with pain radiating up right forearm upon wake this morning. Patient does not recall any trauma or injury to hand. Report swelling is localized to the back of the hand. Patient has similar episode 5 months ago with swelling to bilateral feet which patient was seen in this ED and all lab work was negative. Patient report her diabetes be well-controlled with insulin. Denies numbness or tingling sensation. Denies weakness in bilateral upper extremities. Denies chest pain, shortness of breath, dizziness. Denies any other symptoms. Patient did not take anything for symptoms Is this a multiple visit Asthma Patient?: No <Duncan Salazar - Last Filed: 06/07/19 11:12> <Edenilson Steward - Last Filed: 06/09/19 07:56> - General Chief Complaint: Edema Stated Complaint: SWOLLEN HANDS Time Seen by Provider: 06/07/19 08:52 Past History - Past Medical History COPD: No Diabetes: Yes (on insulin) HTN: Yes Hypercholesterolemia: Yes Kidney Stones: Yes - Psycho Social/Smoking Cessation Hx Smoking History: Never smoked Have you smoked in the past 12 months: No Hx Alcohol Use: No Drug/Substance Use Hx: No Substance Use Type: None Hx Substance Use Treatment: No <Duncan Salazar - Last Filed: 06/07/19 11:12> <Edenilson Steward - Last Filed: 06/09/19 07:56> - Past Medical History Allergies/Adverse Reactions: Allergies Allergy/AdvReac Type Severity Reaction Status Date / Time No Known Allergies Allergy Verified 01/21/19 12:01 Home Medications: Ambulatory Orders Insulin Lispro [Humalog] 35 unit SQ TID 04/20/18 Cephalexin [Keflex] 500 mg PO BID #14 capsule 01/21/19 Metoclopramide HCl [Reglan -] 10 mg PO TID #21 tablet 04/11/19 Cephalexin [Keflex] 500 mg PO BID #14 capsule 04/13/19 Naproxen [Naprosyn -] 500 mg PO BID PRN #14 tablet 06/07/19 Review of Systems - Review of Systems Able to Perform ROS?: Yes Is the patient limited Bangladeshi proficient: No Constitutional: No: Fever, Malaise, Weakness HEENTM: No: Symptoms Reported Respiratory: No: Symptoms reported, Shortness of Breath Cardiac (ROS): No: Symptoms Reported, Chest Pain ABD/GI: No: Symptoms Reported Musculoskeletal: Yes: Symptoms Reported, See HPI, Joint Swelling (back of b/l hands), Muscle Pain (back of b/l hands). No: Muscle Weakness Integumentary: Yes: Symptoms Reported, See HPI, Other (swelling to back of hands ). No: Bruising, Change in Color Neurological: No: Symptoms reported, Numbness, Paresthesia, Tingling, Weakness All Other Systems: Reviewed and Negative <Duncan Salazar - Last Filed: 06/07/19 11:12> *Physical Exam - Vital Signs Last Vital Signs Temp Pulse Resp BP Pulse Ox 98.5 F 81 18 173/60 H 99 06/07/19 08:48 06/07/19 08:48 06/07/19 08:48 06/07/19 08:48 06/07/19 08:48 - Physical Exam Comments: 06/07/19 09:22 GENERAL: Well developed, well nourished. Awake and alert. No acute distress. CARDIOVASCULAR: Regular rate and rhythm. No murmurs, rubs, or gallops. PULMONARY: No evidence of respiratory distress. Lungs clear to auscultation bilaterally. No wheezing, rales or rhonchi. MUSCULOSKELETAL : Moderate tenderness to dorsal aspect of right hand with mild tenderness to dorsal aspect of left hand over area of swelling. No bony deformities SKIN: Warm and dry. Normal capillary refill. 3 cm area of localized soft tissue swelling to dorsal aspect of bilateral hands with increased swelling to back of right hand. No ecchymosis or bruising to skin. NEUROLOGICAL: Alert, awake, appropriate. No motor deficits in the lower extremities. Gait is normal without ataxia. PSYCHIATRIC: Cooperative. Good eye contact. Appropriate mood and affect. General Appearance: Yes: Nourished, Appropriately Dressed. No: Apparent Distress <MarieDuncan - Last Filed: 06/07/19 11:12> - Vital Signs Last Vital Signs Temp Pulse Resp BP Pulse Ox 97.8 F 67 18 167/84 99 06/07/19 10:55 06/07/19 10:55 06/07/19 10:55 06/07/19 10:55 06/07/19 10:55 <Edenilson Steward - Last Filed: 06/09/19 07:56> ED Treatment Course - RADIOLOGY Radiology Studies Ordered: Category Date Time Status FOREARM- RIGHT [RAD] Stat Radiology 06/07/19 09:00 Ordered HAND- LEFT [RAD] Stat Radiology 06/07/19 09:00 Ordered HAND- RIGHT [RAD] Stat Radiology 06/07/19 09:00 Ordered <Duncan Salazar - Last Filed: 06/07/19 11:12> - Medications Given in the ED: ED Medications Discontinued Medications Generic Name Dose Route Start Last Admin Trade Name Man PRN Reason Stop Dose Admin Naproxen 500 mg 06/07/19 09:54 06/07/19 10:45 Naprosyn - PO 06/07/19 09:55 500 mg ONCE ONE Administration <Edenilson Steward - Last Filed: 06/09/19 07:56> Medical Decision Making - Medical Decision Making 06/07/19 09:19 Patient with history of insulin-dependent diabetes presented with complaint of sudden onset of swelling to dorsal aspect of bilateral hand with pain radiating up right forearm upon wake this morning. Patient does not recall any trauma or injury to hand. Report swelling is localized to the back of the hand. Patient has similar episode 5 months ago with swelling to bilateral feet which patient was seen in this ED and all lab work was negative. Patient report her diabetes be well-controlled with insulin. Denies numbness or tingling sensation. Denies weakness in bilateral upper extremities. Denies chest pain, shortness of breath, dizziness. Denies any other symptoms. Patient did not take anything for symptoms Exam significant for localized swelling to dorsal aspect of bilateral hands with increased swelling to right hand and mild swelling to proximal radial aspect of right forearm. No increased warmth. Normal sensory exam bilateral extremity. 5 out of 5 strength bilateral upper extremities. Symptoms likely hand contusion versus less likely swelling from routine protein versus less likely DVT. X-ray of bilateral pain and right forearm ordered to rule out acute pathology 06/07/19 09:55 X-ray of bilateral hand and forearm shows no acute pathology. Given swelling is only localized to bilateral hands, and patient with recent blood work in the ED here with normal result, patient will be treated for possible contusion with advised to follow-up with PCP in the next 2 days for reassessment. Plan discussed with patient and patient agrees with plan will follow-up with PCP. Patient be discharged on naproxen as needed for pain. Referral given to rheumatology for evaluation to rule out possible autoimmune disease <Duncan Salazar - Last Filed: 06/07/19 11:12> - Medical Decision Making The patient was seen and evaluated in conjunction with WAN Salazar under my direct supervision, ancillary studies were reviewed. I agree with the plan as outlined by WAN Salazar. <Edenilson Steward - Last Filed: 06/09/19 07:56> Discharge - Discharge Information Problems reviewed: Yes - Admission No <Duncan Salazar - Last Filed: 06/07/19 11:12> <Edenilson Steward - Last Filed: 06/09/19 07:56> - Discharge Information Clinical Impression/Diagnosis: Bilateral hand swelling, Bilateral hand pain Condition: Stable Disposition: HOME - Additional Discharge Information Prescriptions: Naproxen [Naprosyn -] 500 mg PO BID PRN #14 tablet PRN Reason: pain and swelling - Follow up/Referral Referrals: Lacho Huntley [Primary Care Provider] - Rayray Nieto MD [Staff Physician] - - Patient Discharge Instructions Patient Printed Discharge Instructions: DI for Hand Pain Additional Instructions: Apply warm compress to bilateral hands as needed for swelling. Take prescribed medication as prescribed for pain and swelling. Follow-up with your primary care in the next 2 days as discussed for reassessment. Follow-up referred to rheumatology to evaluate and rule out autoimmune disease
[2019-06-07] MEDS ORDERED: NAPROXEN 500 MG TABLET (FP) PO ONE (09:54)
[2019-06-07] MEDS ORDERED: NAPROXEN 500 MG TABLET (FP) ONE (10:52)
[2019-06-07 12:55] VITALS: BP 167/84; PULSE 67; TEMP 97.8
== END 2019-06-07 10:55 | disposition home or self-care (01) ==
LOC: JER 08:27
DX: M79.89 Other specified soft tissue disorders (principal); R22.33 Localized swelling, mass and lump, upper limb, bilateral; E11.9 Type 2 diabetes mellitus without complications; Z79.4 Long term (current) use of insulin; I10 Essential (primary) hypertension; E78.00 Pure hypercholesterolemia, unspecified
CPT/HCPCS: 73090-TC-RT-FY; 73130-TC-LT-FY; 73130-TC-RT-FY; 99281-25

== ENCOUNTER 2021-02-15 14:20 | Emergency (ER) | payer OTHER ==
[2021-02-15 14:35] VITALS: BP 139/77; PULSE 87; TEMP 97.9; BMI 30.5
[2021-02-15] MEDS ORDERED: SODIUM CHLORIDE 1,000 ML IV STA (16:18)
[2021-02-15] MEDS ORDERED: METOCLOPRAMIDE HCL INJECTION 10 MG/2 ML VIAL IVPB ONE (17:15)
[2021-02-15] MEDS ORDERED: MECLIZINE HCL 25 MG TABLET (FP) PO ONE (17:16)
[2021-02-15] MEDS ORDERED: METOCLOPRAMIDE HCL INJECTION 10 MG/2 ML VIAL ONE (17:41)
[2021-02-15] MEDS ORDERED: MECLIZINE HCL 25 MG TABLET (FP) ONE (18:14)
[2021-02-15 18:46] LABS: BASO % 0.9 % (0-2.0); EOS % 2.9 % (0-4.5); HEMATOCRIT 39.4 % (32.4-45.2); HEMOGLOBIN 13.6 GM/dL (10.7-15.3); LYMPH % 33.1 % (8-40); MCH 28.8 pg (25.7-33.7); MCHC 34.4 g/dl (32.0-36.0); MEAN CELL VOLUME 83.8 fl (80-96); MEAN PLT VOLUME 7.6 fl (7.5-11.1); MONO % 7.9 % (3.8-10.2); NEUT % 55.2 % (42.8-82.8); PLATELET COUNT 262 10^3/uL (134-434); RBC 4.71 M/mm3 (3.60-5.2); RDW 13.7 % (11.6-15.6); WHITE BLOOD COUNT 8.7 K/mm3 (4.0-10.0)
[2021-02-15 18:50] LABS: EPI CELLS 24 /uL (0-25.1); HYALINE CASTS 0 /uL (0-3.1); PH,URINE 5.5 (5.0-8.0); URINE APPEARANCE CLEAR; URINE BACTERIA 3583 /uL (0-1359); URINE BILIRUBIN NEGATIVE (NEGATIVE); URINE COLOR YELLOW; URINE GLUCOSE (UA) NEGATIVE (NEGATIVE); URINE KETONE NEGATIVE (NEGATIVE); URINE LEUK ESTERASE TRACE (NEGATIVE); URINE NITRITE NEGATIVE (NEGATIVE); URINE PROTEIN NEGATIVE (NEGATIVE); URINE RBC 1 /uL (0-23.9); URINE UROBILINOGEN 0.2 mg/dL (0.2-1.0); URINE WBC 26 /uL (0-25.8)
[2021-02-15 18:52] LABS: INR 0.95 (0.83-1.09); PROTHROMBIN TIME (PATIENT) 11.5 SEC (9.7-13.0)
[2021-02-15 19:05] LABS: CHLORIDE 104 mmol/L (98-107); SODIUM 139 mmol/L (136-145)
[2021-02-15 19:06] LABS: CALCIUM 9.4 mg/dL (8.5-10.1)
[2021-02-15 19:07] LABS: ALBUMIN 3.9 g/dl (3.4-5.0); BLOOD UREA NITROGEN 12.3 mg/dL (7-18); GLUCOSE,RANDOM 124 mg/dL (74-106)
[2021-02-15 19:10] LABS: CREATININE 1.1 mg/dL (0.55-1.3); SGOT/AST 34 U/L (15-37); SGPT/ALT 41 U/L (13-61)
[2021-02-15 19:12] LABS: BILIRUBIN,TOTAL 0.3 mg/dL (0.2-1); TOT PROT 7.9 g/dl (6.4-8.2)
[2021-02-15 19:13] LABS: ALK PHOS 85 U/L (45-117)
[2021-02-15 19:19] LABS: ANION GAP 6 MMOL/L (8-16); CO2 28 mmol/L (21-32)
== END 2021-02-15 18:30 | disposition left against medical advice (07) ==
LOC: JER 14:20
PROC: 3E033GC Introduction of Other Therapeutic Substance into Peripheral Vein, Percutaneous Approach (ICD-10-PCS; principal; 2021-02-15)
PROC: 3E0337Z Introduction of Electrolytic and Water Balance Substance into Peripheral Vein, Percutaneous Approach (ICD-10-PCS; 2021-02-15)
DX: R42 Dizziness and giddiness (principal)
CPT/HCPCS: 36415; 80053; 81003; 82550; 84484; 85025; 85610; 87086; 87186; 93005; 93010; 99284-25

== ENCOUNTER 2021-10-23 10:58 | Emergency (ER) | payer OTHER ==
[2021-10-23 11:13] VITALS: BP 173/87; PULSE 85; TEMP 97.6; BMI 29.2
[2021-10-23] MEDS ORDERED: SODIUM CHLORIDE 1,000 ML IV STA (11:59)
[2021-10-23] MEDS ORDERED: KETOROLAC TROMETHAMINE 30 MG/1 ML VIAL IVPUSH ONE (11:59)
[2021-10-23] MEDS ORDERED: KETOROLAC TROMETHAMINE 30 MG/1 ML VIAL ONE (12:00)
[2021-10-23 12:04] LABS: EPI CELLS >36 /uL (0-25.1); HYALINE CASTS 1 /uL (0-3.1); PH,URINE 5.5 (5.0-8.0); URINE APPEARANCE CLOUDY; URINE BACTERIA >9,000 /uL (0-1359); URINE BILIRUBIN NEGATIVE (NEGATIVE); URINE COLOR YELLOW; URINE GLUCOSE (UA) NEGATIVE (NEGATIVE); URINE KETONE NEGATIVE (NEGATIVE); URINE LEUK ESTERASE 1+ (NEGATIVE); URINE NITRITE POSITIVE (NEGATIVE); URINE PROTEIN 1+ (NEGATIVE); URINE RBC 3 /uL (0-23.9); URINE UROBILINOGEN 0.2 mg/dL (0.2-1.0); URINE WBC 53 /uL (0-25.8)
[2021-10-23 12:14] LABS: BASO % 1.1 % (0-2.0); EOS % 3.2 % (0-4.5); HEMATOCRIT 40.6 % (32.4-45.2); HEMOGLOBIN 13.9 GM/dL (10.7-15.3); LYMPH % 31.8 % (8-40); MCH 28.7 pg (25.7-33.7); MCHC 34.2 g/dl (32.0-36.0); MEAN PLT VOLUME 7.4 fl (7.5-11.1); NEUT % 57.9 % (42.8-82.8); PLATELET COUNT 260 10^3/uL (134-434); RBC 4.83 M/mm3 (3.60-5.2); RDW 13.3 % (11.6-15.6); WHITE BLOOD COUNT 8.3 K/mm3 (4.0-10.0)
[2021-10-23 12:34] LABS: CALCIUM 9.6 mg/dL (8.5-10.1)
[2021-10-23 12:38] LABS: CREATININE 1.1 mg/dL (0.55-1.3)
[2021-10-23 12:39] LABS: BILIRUBIN,TOTAL 0.6 mg/dL (0.2-1)
[2021-10-23] MEDS ORDERED: CEFTRIAXONE 1 GM in DEXTROSE 5%-WATER - 100 ML IVPB ONE (12:45)
[2021-10-23] MEDS ORDERED: CEFTRIAXONE 1 GM/50 ML BAG ONE (12:56)
== END 2021-10-23 14:35 | disposition home or self-care (01) ==
LOC: JER 10:58
PROC: 3E033GC Introduction of Other Therapeutic Substance into Peripheral Vein, Percutaneous Approach (ICD-10-PCS; principal; 2021-10-23)
DX: N12 Tubulo-interstitial nephritis, not specified as acute or chronic (principal)
CPT/HCPCS: 36415; 74176-TC; 80053; 81003; 85025; 87086; 87186; 96361; 96365; 96375; 99285-25

== ENCOUNTER 2021-10-30 12:06 | Emergency (ER) | payer OTHER ==
[2021-10-30 12:16] VITALS: BP 130/74; PULSE 78; TEMP 97.7; BMI 29.0
[2021-10-30] MEDS ORDERED: ACETAMINOPHEN 325 MG TABLET (FP) PO ONE (13:19)
[2021-10-30] MEDS ORDERED: KETOROLAC TROMETHAMINE 30 MG/1 ML VIAL IM ONE (13:19)
[2021-10-30] MEDS ORDERED: LIDOCAINE 5% TOPICAL PATCH TP ONE (13:19)
[2021-10-30] MEDS ORDERED: ACETAMINOPHEN 325 MG TABLET (FP) ONE (13:25)
[2021-10-30] MEDS ORDERED: LIDOCAINE 5% TOPICAL PATCH ONE (13:25)
[2021-10-30] MEDS ORDERED: KETOROLAC TROMETHAMINE 30 MG/1 ML VIAL ONE (13:26)
[2021-10-30 13:44] LABS: PH,URINE 5.5 (5.0-8.0); URINE APPEARANCE CLEAR; URINE BILIRUBIN NEGATIVE (NEGATIVE); URINE COLOR YELLOW; URINE GLUCOSE (UA) NEGATIVE (NEGATIVE); URINE KETONE NEGATIVE (NEGATIVE); URINE LEUK ESTERASE NEGATIVE (NEGATIVE); URINE NITRITE NEGATIVE (NEGATIVE); URINE PROTEIN TRACE (NEGATIVE); URINE UROBILINOGEN 0.2 mg/dL (0.2-1.0)
[2021-10-30] MEDS ORDERED: LIDOCAINE PATCH REMOVAL MC ONE (22:00)
== END 2021-10-30 15:08 | disposition home or self-care (01) ==
LOC: JERFT 12:06
PROC: 3E023GC Introduction of Other Therapeutic Substance into Muscle, Percutaneous Approach (ICD-10-PCS; principal; 2021-10-30)
DX: M54.42 Lumbago with sciatica, left side (principal)
CPT/HCPCS: 81003; 87086; 99284-25

== ENCOUNTER 2023-11-24 11:17 | Emergency (ER) | payer OTHER ==
[2023-11-24 11:23] VITALS: BP 147/70; PULSE 69; RESP 18; TEMP 98; BMI 28.3
[2023-11-24] MEDS ORDERED: ACETAMINOPHEN 325 MG TABLET (FP) ONE (13:01)
[2023-11-24] MEDS: ACETAMINOPHEN 325 MG TABLET (FP) PO ONE (13:03)
== END 2023-11-24 15:00 | disposition home or self-care (01) ==
LOC: JERFT 11:17
DX: M79.674 Pain in right toe(s) (principal)
CPT/HCPCS: 73610-TC-RT-FY; 73630-TC-RT-FY; 99283-25

== ENCOUNTER 2024-01-04 16:07 | Emergency (ER) | payer OTHER ==
[2024-01-04 16:31] VITALS: BP 135/61; PULSE 74; RESP 18; TEMP 98.5; BMI 28.3
[2024-01-04] MEDS ORDERED: KETOROLAC TROMETHAMINE 30 MG/1 ML VIAL ONE (17:43)
[2024-01-04] MEDS: KETOROLAC TROMETHAMINE 30 MG/1 ML VIAL IM ONE (17:46)
== END 2024-01-04 18:30 | disposition home or self-care (01) ==
LOC: JERFT 16:07
PROC: 3E0233Z Introduction of Anti-inflammatory into Muscle, Percutaneous Approach (ICD-10-PCS; principal; 2024-01-04)
DX: M54.50 Low back pain, unspecified (principal); M25.552 Pain in left hip; W18.2XXA Fall in (into) shower or empty bathtub, initial encounter
CPT/HCPCS: 72100-TC-FY; 73502-TC-LT-FY; 99284-25

== ENCOUNTER 2024-09-18 07:34 | Observation (INO) | payer OTHER ==
[2024-09-18 07:41] VITALS: BMI 28.3
[2024-09-18] MEDS ORDERED: ACETAMINOPHEN INJECTION 100 ML ONE (08:58)
[2024-09-18] MEDS ORDERED: METOCLOPRAMIDE HCL INJECTION 10 MG/2 ML VIAL ONE (08:58)
[2024-09-18 09:01] LABS: BASO % 0.9 % (0-2.0); EOS % 4.2 % (0-4.5); HEMATOCRIT 41.8 % (32.4-45.2); HEMOGLOBIN 14.2 GM/dL (10.7-15.3); LYMPH % 34.8 % (8-40); MCH 29.3 pg (25.7-33.7); MCHC 34.1 g/dl (32.0-36.0); MEAN CELL VOLUME 85.9 fl (80-96); MEAN PLT VOLUME 7.4 fl (7.5-11.1); MONO % 7.2 % (3.8-10.2); NEUT % 52.9 % (42.8-82.8); PLATELET COUNT 247 10^3/uL (134-434); RBC 4.86 M/mm3 (3.60-5.2); RDW 13.2 % (11.6-15.6); WHITE BLOOD COUNT 7.5 K/mm3 (4.0-10.0)
[2024-09-18] MEDS: LACTATED RINGERS SOLUTION 1000 ML INFUS.BAG IV ONE (09:10)
[2024-09-18] MEDS: ACETAMINOPHEN 1000 MG/100 ML BAG IVPB ONE (09:11)
[2024-09-18] MEDS: METOCLOPRAMIDE HCL INJECTION 10 MG/2 ML VIAL IVPB ONE (09:11)
[2024-09-18 09:20] LABS: POTASSIUM 4.3 mmol/L (3.5-5.1)
[2024-09-18 09:22] LABS: CALCIUM 9.9 mg/dL (8.5-10.1)
[2024-09-18 09:23] LABS: BLOOD UREA NITROGEN 20.2 mg/dL (7-18); MAGNESIUM 2.1 mg/dL (1.8-2.4)
[2024-09-18 09:26] LABS: CREATININE 1.2 mg/dL (0.55-1.3)
[2024-09-18 09:27] LABS: BILIRUBIN,TOTAL 0.4 mg/dL (0.2-1); TOT PROT 7.8 g/dl (6.4-8.2)
[2024-09-18] MEDS ORDERED: MECLIZINE HCL 25 MG TABLET (FP) ONE (10:57)
[2024-09-18] MEDS: MECLIZINE HCL 25 MG TABLET (FP) PO ONE (11:05)
[2024-09-18 11:58] LABS: HIV INTERPRETATION NEGATIVE (NEGATIVE)
[2024-09-18] MEDS ORDERED: ROSUVASTATIN CA 20 MG TABLET ONE (22:34)
[2024-09-18] MEDS ORDERED: HEPARIN NA (PORCINE) 5,000 UNITS/ML 1ML VIAL ONE (22:35)
[2024-09-18] MEDS: HEPARIN NA (PORCINE) 5,000 UNITS/ML 1ML VIAL SQ SCH (22:36)
[2024-09-18] MEDS: ROSUVASTATIN CA 20 MG TABLET PO SCH (22:36)
[2024-09-18] MEDS: ACETAMINOPHEN 325 MG TABLET (FP) PO PRN (23:41)
[2024-09-19] MEDS: ASPIRIN COATED 81 MG TABLET.EC PO SCH (09:16)
[2024-09-19] MEDS: MECLIZINE HCL 12.5 MG TABLET PO PRN (09:16)
[2024-09-19] MEDS: INSULIN ASPART SLIDING SCALE (NOVOLOG) 1 VIAL SQ SCH (12:25)
[2024-09-19] MEDS: PANTOPRAZOLE 40 MG TABLET PO SCH (14:56)
[2024-09-19] MEDS: MECLIZINE HCL 12.5 MG TABLET PO SCH (14:57)
[2024-09-20 01:55] VITALS: RESP 18
[2024-09-20] MEDS: LOSARTAN POTASSIUM 50 MG TABLET PO SCH (09:58)
[2024-09-20 11:16] VITALS: BP 102/63; PULSE 78; TEMP 98
== END 2024-09-20 11:58 | disposition home or self-care (01) ==
LOC: JER 07:34 → JERBED 10:59 → J8W 22:49
PROVIDERS: ADMIT Internal Medicine; ATTEND Nurse Practitioner Family
PROC: 3E033NZ Introduction of Analgesics, Hypnotics, Sedatives into Peripheral Vein, Percutaneous Approach (ICD-10-PCS; principal; 2024-09-18)
PROC: 3E023GC Introduction of Other Therapeutic Substance into Muscle, Percutaneous Approach (ICD-10-PCS; 2024-09-18)
PROC: 3E033GC Introduction of Other Therapeutic Substance into Peripheral Vein, Percutaneous Approach (ICD-10-PCS; 2024-09-18)
PROC: 3E0337Z Introduction of Electrolytic and Water Balance Substance into Peripheral Vein, Percutaneous Approach (ICD-10-PCS; 2024-09-18)
DX: I65.21 Occlusion and stenosis of right carotid artery (principal); R42 Dizziness and giddiness; I10 Essential (primary) hypertension; E78.5 Hyperlipidemia, unspecified; E11.9 Type 2 diabetes mellitus without complications; K92.9 Disease of digestive system, unspecified
CPT/HCPCS: 0241U-QW; 36415; 70450-TC; 70496-TC; 70498-TC; 70551-TC; 80053; 80061; 82962; 83036; 83735; 84484; 85025; 86803; 87389; 93005; 93010; 96372; 96374; 96375; 97116-GP; 97161-GP; 99285-25; G0378; J0131; J1644